=== PATIENT | male | born 1965 | race Caucasian/White ===

== ENCOUNTER → 2019-12-01 10:56 | Outpatient (BNVA) | payer MEDICARE, OTHER, SELFPAY | PROVIDERS: PCP Internal Medicine; Visit Provider Surgery | DX: T87.89 Other complications of amputation stump (principal); Z89.512 Acquired absence of left leg below knee | CPT/HCPCS: 99213 ==

== ENCOUNTER → 2019-12-15 10:39 | Outpatient (BNVA) | payer MEDICARE, OTHER, SELFPAY | PROVIDERS: PCP Internal Medicine; Referring Provider Internal Medicine; Visit Provider Surgery | DX: Z47.81 Encounter for orthopedic aftercare following surgical amputation (principal); Z89.512 Acquired absence of left leg below knee | CPT/HCPCS: 99213 ==

== ENCOUNTER → 2020-01-05 10:46 | Outpatient (BNVA) | payer MEDICARE, OTHER, SELFPAY | PROVIDERS: PCP Internal Medicine; Referring Provider Internal Medicine; Visit Provider Surgery | DX: Z89.512 Acquired absence of left leg below knee (principal); E11.69 Type 2 diabetes mellitus with other specified complication; M86.9 Osteomyelitis, unspecified; E78.00 Pure hypercholesterolemia, unspecified; I10 Essential (primary) hypertension; F17.200 Nicotine dependence, unspecified, uncomplicated | CPT/HCPCS: 99212 ==

== ENCOUNTER → 2020-01-19 10:01 | Outpatient (BNVA) | payer MEDICARE, OTHER, SELFPAY | PROVIDERS: PCP Internal Medicine; Visit Provider Surgery | DX: Z89.512 Acquired absence of left leg below knee (principal) | CPT/HCPCS: 99212 ==

== ENCOUNTER → 2020-02-27 08:58 | Outpatient (BNVA) | payer MEDICARE, OTHER, SELFPAY | PROVIDERS: PCP Internal Medicine; Visit Provider Surgery | DX: Z89.512 Acquired absence of left leg below knee (principal) | CPT/HCPCS: 99212 ==

== ENCOUNTER → 2020-03-19 09:45 | Outpatient (BNVA) | payer MEDICARE, OTHER, SELFPAY | PROVIDERS: PCP Internal Medicine; Visit Provider Surgery | DX: Z89.512 Acquired absence of left leg below knee (principal) | CPT/HCPCS: 99212 ==

== ENCOUNTER → 2020-04-17 09:20 | Outpatient (BNVA) | payer MEDICARE, OTHER, SELFPAY | PROVIDERS: PCP Internal Medicine; Visit Provider Surgery | DX: Z89.512 Acquired absence of left leg below knee (principal) | CPT/HCPCS: 99212 ==

== ENCOUNTER 2020-04-24 08:49 | Outpatient (REF) | payer MEDICARE, OTHER, SELFPAY ==
--- NOTE | 2020-04-24 09:00 | PFT_ITS ---
The patient had only spirometry before and after bronchodilators. Forced vital capacity and FEV1 are both slightly decreased. FEV1/FVC ratio is normal. [id number] is at the lower limit of normal. MVV is normal. Post bronchodilator therapy, there is no significant change. The patient was unable to perform maneuvers for the total lung capacity and diffusion capacity. CONCLUSION: The spirometry findings are consistent with possible mild restrictive disorder, but no significant obstructive airway disorder. Clinical correlation is recommended. Muna Lopez MD MSB/MODL / [id number]
== END 2020-04-24 08:50 | disposition home or self-care (01) ==
LOC: HO.RESP 08:49
PROVIDERS: PCP Internal Medicine; Visit Provider Internal Medicine
DX: R06.02 Shortness of breath (principal)
CPT/HCPCS: 94060

== ENCOUNTER → 2020-05-17 10:11 | Outpatient (BNVA) | payer MEDICARE, OTHER, SELFPAY | PROVIDERS: PCP Internal Medicine; Visit Provider Surgery | DX: T87.89 Other complications of amputation stump (principal); L84 Corns and callosities; Z89.512 Acquired absence of left leg below knee | CPT/HCPCS: 11055; 99212 ==

== ENCOUNTER → 2020-05-31 09:47 | Outpatient (BNVA) | payer MEDICARE, OTHER, SELFPAY | PROVIDERS: PCP Internal Medicine; Visit Provider Surgery | DX: Z89.512 Acquired absence of left leg below knee (principal); Z87.2 Personal history of diseases of the skin and subcutaneous tissue | CPT/HCPCS: 99212 ==

== ENCOUNTER → 2020-07-19 09:50 | Outpatient (BNVA) | payer MEDICARE, OTHER, SELFPAY | PROVIDERS: PCP Internal Medicine; Visit Provider Surgery | DX: Z47.81 Encounter for orthopedic aftercare following surgical amputation (principal); E11.9 Type 2 diabetes mellitus without complications; Z89.512 Acquired absence of left leg below knee | CPT/HCPCS: 99212 ==

== ENCOUNTER → 2020-08-09 08:53 | Outpatient (BNVA) | payer MEDICARE, OTHER, SELFPAY | PROVIDERS: PCP Internal Medicine; Visit Provider Surgery | DX: Z89.512 Acquired absence of left leg below knee (principal) | CPT/HCPCS: 99212 ==

== ENCOUNTER → 2020-08-23 11:17 | Outpatient (BNVA) | payer MEDICARE, OTHER, SELFPAY | PROVIDERS: PCP Internal Medicine; Referring Provider Internal Medicine; Visit Provider Surgery | DX: Z89.512 Acquired absence of left leg below knee (principal) | CPT/HCPCS: 99212 ==

== ENCOUNTER → 2020-09-13 09:35 | Outpatient (BNVA) | payer MEDICARE, OTHER, SELFPAY | PROVIDERS: PCP Internal Medicine; Visit Provider Surgery | DX: G62.9 Polyneuropathy, unspecified (principal); L84 Corns and callosities; Z89.512 Acquired absence of left leg below knee | CPT/HCPCS: 99212 ==

== ENCOUNTER → 2020-10-01 09:54 | Outpatient (BNVA) | payer MEDICARE, OTHER, SELFPAY | PROVIDERS: PCP Internal Medicine; Visit Provider Surgery | DX: S81.802D Unspecified open wound, left lower leg, subsequent encounter (principal); Z89.512 Acquired absence of left leg below knee; E11.9 Type 2 diabetes mellitus without complications; G62.9 Polyneuropathy, unspecified | CPT/HCPCS: 99212 ==

== ENCOUNTER → 2020-10-17 13:21 | Outpatient (BNVA) | payer MEDICARE, OTHER, SELFPAY | PROVIDERS: PCP Internal Medicine; Visit Provider Surgery | DX: E11.65 Type 2 diabetes mellitus with hyperglycemia (principal); E11.42 Type 2 diabetes mellitus with diabetic polyneuropathy; M86.8X7 Other osteomyelitis, ankle and foot; E78.00 Pure hypercholesterolemia, unspecified; I10 Essential (primary) hypertension; Z89.512 Acquired absence of left leg below knee | CPT/HCPCS: 99212 ==

== ENCOUNTER → 2020-11-19 10:19 | Outpatient (BNVA) | payer MEDICARE, OTHER, SELFPAY | PROVIDERS: PCP Internal Medicine; Referring Provider Internal Medicine; Visit Provider Surgery | DX: E11.9 Type 2 diabetes mellitus without complications (principal); G62.9 Polyneuropathy, unspecified; Z89.512 Acquired absence of left leg below knee | CPT/HCPCS: 99212 ==

== ENCOUNTER → 2020-12-19 10:31 | Outpatient (BNVA) | payer MEDICARE, OTHER, SELFPAY | PROVIDERS: PCP Internal Medicine; Referring Provider Internal Medicine; Visit Provider Surgery | DX: M25.561 Pain in right knee (principal); E11.9 Type 2 diabetes mellitus without complications; G62.9 Polyneuropathy, unspecified; Z89.512 Acquired absence of left leg below knee | CPT/HCPCS: 99212 ==

== ENCOUNTER → 2021-02-18 15:06 | Outpatient (BNVA) | payer MEDICARE, OTHER, SELFPAY | PROVIDERS: PCP Internal Medicine; Referring Provider Internal Medicine; Visit Provider Surgery | DX: M79.605 Pain in left leg (principal); Z89.512 Acquired absence of left leg below knee | CPT/HCPCS: 99212 ==

== ENCOUNTER → 2021-04-15 13:53 | Outpatient (BNVA) | payer MEDICARE, OTHER, SELFPAY | PROVIDERS: PCP Internal Medicine; Referring Provider Internal Medicine; Visit Provider Surgery | DX: M79.605 Pain in left leg (principal); E11.9 Type 2 diabetes mellitus without complications; G62.9 Polyneuropathy, unspecified; Z89.512 Acquired absence of left leg below knee | CPT/HCPCS: 99212 ==

== ENCOUNTER → 2021-05-15 10:49 | Outpatient (BNVA) | payer MEDICARE, OTHER, SELFPAY | PROVIDERS: PCP Internal Medicine; Visit Provider Nurse Practitioner Family | DX: M79.605 Pain in left leg (principal); T87.89 Other complications of amputation stump; G62.9 Polyneuropathy, unspecified; Z89.512 Acquired absence of left leg below knee | CPT/HCPCS: 99212 ==

== ENCOUNTER 2021-07-05 20:58 | Emergency (ER) | payer MEDICARE, OTHER, SELFPAY ==
[2021-07-05 21:01] VITALS: BP 133/63; BP 156/88; PULSE 78; PULSE 83; RESP 18; TEMP 37; O2SAT 100; O2SAT 97
[2021-07-05 21:14] LABS: Glucose, Whole Blood 152 mg/dL (60-115)
--- NOTE | 2021-07-05 21:26 | ED_ITS ---
HPI - Overdose General Chief Complaint: Overdose Stated Complaint: ACCIDENTALLY TOOK EXTRA DIABETES MEDS Time Seen by Provider: 07/05/21 21:13 Source: patient Mode of arrival: EMS Limitations: no limitations History of Present Illness HPI Narrative: 56-year-old male with a history of diabetes who presents emergency department for evaluation of accidental overdose of his Humalog regular insulin. The patient has hemologic insulin on a sliding scale that he takes 3 times a day based on his glucose prior to meals. He also takes Lantus at night. He states that normally he takes 36 units of Lantus at night but he accidentally gave himself 36 units of Humalog regular insulin. He realized his mistake in any also gave himself his usual dose of Lantus 36 units subcutaneously. The patient states that his glucose was 220 prior to coming to the emergency department. He was concerned about his accidental overdose so he called an ambulance and was brought to the emergency department. He states that he was in usual state of health prior to this accidental insulin administration and at the time of evaluation he has no complaints. MD complaint: accidental overdose Onset (ago): hour(s) (1) Time: 20:30 Intent: other (Accidental) Treatments Prior to Arrival: none Related Data Home Medications Medication Instructions Recorded Confirmed amlodipine 5 mg tablet 5 mg PO DAILY 11/30/19 04/15/21 atorvastatin 20 mg tablet 20 mg PO DAILY 11/30/19 04/15/21 blood sugar diagnostic (FreeStyle #10 ea 11/30/19 04/15/21 Lite Strips) insulin lispro 100 unit/mL 36 unit SUBCUT DAILY ml 11/30/19 04/15/21 subcutaneous pen (Humalog KwikPen (U-100) Insulin) lancets 28 gauge (FreeStyle #100 ea 11/30/19 04/15/21 Lancets) pen needle, diabetic 32 gauge x #50 ea 11/30/19 04/15/21 (BD Ultra-Fine Sarah Pen Needle) amlodipine 10 mg tablet 10 mg PO DAILY 04/15/21 04/15/21 carvedilol 6.25 mg tablet 6.25 mg PO BID 04/15/21 04/15/21 lancets 33 gauge (TRUEplus Lancets) #100 ea 04/15/21 04/15/21 lisinopril 40 mg tablet 40 mg PO DAILY 04/15/21 04/15/21 oxycodone-acetaminophen 5 mg-325 1 tab PO Q8H PRN 04/15/21 mg tablet Previous Rx's Medication Instructions Recorded hydrocortisone 2.5 % topical cream 1 appl TOPICAL BEDTIME PRN #20 g 08/09/20 loratadine 10 mg tablet (Claritin) 10 mg PO DAILY #20 tab 09/13/20 silver-hydrocolloid dressing 1.2 1 ea TOPICAL .QOD #10 ea 10/01/20 %-3.5 X 4 (Aquacel-AG) oxycodone 10 mg tablet 10 mg PO Q6H PRN #30 tab 04/10/21 pregabalin 50 mg capsule 50 mg PO BID 30 Days #60 cap 05/15/21 Allergies Allergy/AdvReac Type Severity Reaction Status Date / Time acetaminophen Allergy Mild Rash Verified 05/15/21 11:01 Review of Systems Review of Systems: Yes all other systems are reviewed and are negative [facility] Past Medical History [facility] Narrative: Social history: Patient smokes 1 pack of cigarettes per day times 40 years. He drinks alcohol occasionally, he did not drink alcohol this evening. There denie s drug use. 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 Family History Family History Father History of hypertension Mother History of diabetes mellitus Social History Social History Alcohol intake: current Alcohol intake frequency: 0-2 drinks per day Alcohol type: beer Advance Directives: No Advance Directives Information Provided: No Physical Exam Vital Signs: Vital Signs: Last Vital Signs Temp 97.9 F 07/05/21 23:17 Pulse 70 07/06/21 01:16 Resp 14 07/06/21 01:16 BP 127/74 07/06/21 01:16 Pulse Ox 96 07/06/21 01:16 BMI result Body Mass Index 20.0 Const: General: cooperative and no acute distress Orientation/consciousness: oriented to person and oriented to place Limitations: no limitations HEENT: Head: Yes normal to inspection, Yes normocephalic and Yes atraumatic Ears: external ears normal General nose exam: Normal external nose present Face and sinus: Yes normal facial exam Mouth: Normal oral and palatal mucosa present Throat: Yes posterior oropharynx normal Eyes: General: appearance normal, both eyes and all related structures P upils: Equal, round and reactive pupils present Neck: Neck: Yes normal visual inspection, Yes no lymphadenopathy, Yes trachea midline and Yes supple Chest: Chest palpation & inspection: normal inspection of the chest and normal palpation of entire chest wall Resp: Effort & Inspection: normal respiratory effort and able to speak in complete sentences Auscultation: clear to auscultation bilaterally Cardio: Rate: regular rate Rhythm: regular rhythm Heart sounds: S1 normal heart sound present, S2 normal heart sound present and no murmurs GI: Inspection: Yes normal to inspection Palpation (GI): Soft to palpation, nontender and no guarding Auscultation: normal bowel sounds : General: Yes no CVA tenderness Back/Spine/Pelvis: Back: no CVA tenderness Skin: General skin exam: no rashes or lesions noted Neuro: General: oriented to person and oriented to place Cranial nerves: Yes CN's II-XII intact bilaterally and Yes Equal, round and reactive pupils present Cognition (Neuro): normal cognition Motor exam (neuro): 5/5 motor strength present throughout Extrem: Other: Left [id number] amputation, the patient is wearing a prosthesis Psych: Appearance: grossly normal Speech and movement: Normal speech and movement present Affect: normal affect Attitude: cooperative Thought process: Normal thought process present Thought content: Normal thought content present Course Course Course Narrative: 56-year-old male who presents emergency department for evaluation accidental overdose Humalog insulin. The patient was supposed to give himself Lantus 36 units at night but he accidentally gave himself 36 units of Humalog regular insulin at 20:30 hours. The patient also give himself his usual dose of Lantus 36 units prior to coming to the emergency department. The patient has not been ill in any way prior to this accidental administration insulin. At the time of evaluation, the patient's point of care glucose was 152. His vital signs were normal. His exam is normal. The half-life of Humalog is 1 hour therefore the patient will be kept 4 hours, until 00:30 hours for observation and 1 hour point of care glucose checks. The patient was given 2 chicken salad sandwich is an to cans of tong lety to help prevent hypoglycemia. 2210: Patient's repeat point of care glucose was above. The patient is a alert and does not appear distress. Given this drop in his glucose, patient was started on D5 normal saline at 125 an hour and will continue for 3 hours. 0425: The patient's D5 NS drip was stopped for approximately 1 hour and repeat point of care glucose at 03:30 hours was 115. At this point I believe that the patient has metabolized the Humalog that he took earlier and that he is stable to be discharged home. MDM - Overdose Lab Data Labs: Lab Results 07/05/21 07/05/21 07/05/21 Range/Units 21:09 22:05 23:00 POC Glucose 152 H 78 99 (60-115) mg/dL 07/06/21 07/06/21 07/06/21 Range/Units 00:35 00:49 03:25 POC Glucose 73 61 115 (60-115) mg/dL Discharge Plan Discharge Clinical Impression: Accidental overdose of insulin Patient Disposition: Home, Self-Care Additional Instructions: At this time, I think that is safe to send you home. When you get home you should eat some more food before you go to bed. You can resume taking your insulin today as you normally would. Follow-up with your doctor in 2 days. Please return to the emergency department if your symptoms get worse or if you develop any symptoms that are concerning to you. Prescriptions: No Action loratadine [Claritin] 10 mg tablet 10 mg PO DAILY Qty: 20 0RF oxycodone 10 mg tablet 10 mg PO Q6H PRN (Reason: pain (scale score 7-10)) Qty: 30 0RF insulin lispro [Humalog KwikPen Insulin] 100 unit/mL insulin pen 36 unit subcut DAILY 0RF (DME) FreeStyle Lite Strips Strip See Rx Instructions .ROUTE .MEDSUPPLY Qty: 10 0RF Rx Instructions: As directed (DME) lancets [FreeStyle Lancets] 28 gauge misc See Rx Instructions .ROUTE .MEDSUPPLY Qty: 100 0RF Rx Instructions: As directed (DME) pen needle, diabetic [BD Ultra-Fine Sarah Pen Needle] 32 gauge x 5/32 needle See Rx Instructions .ROUTE .MEDSUPPLY Qty: 50 0RF Rx Instructions: As directed amlodipine 5 mg tablet 5 mg PO DAILY 0RF atorvastatin 20 mg tablet 20 mg PO DAILY 0RF hydrocortisone 2.5 % cream 1 appl topical BEDTIME PRN (Reason: skin irritation) Qty: 20 0RF Aquacel-AG 1.2-3.5 X 4 %- bandage 1 ea topical .QOD Qty: 10 0RF Rx Instructions: Cut small square to cover open wound every other day oxycodone-acetaminophen 5-325 mg tablet 1 tab PO Q8H PRN (Reason: pain) 0RF lisinopril 40 mg tablet 40 mg PO DAILY 0RF (DME) lancets [TRUEplus Lancets] 33 gauge misc See Rx Instructions ea Not Applicable TID Qty: 100 0RF Rx Instructions: As directed amlodipine 10 mg tablet 10 mg PO DAILY 0RF carvedilol 6.25 mg tablet 6.25 mg PO BID 0RF pregabalin 50 mg capsule 50 mg PO BID 30 Days Qty: 60 0RF
[2021-07-05 22:09] LABS: Glucose, Whole Blood 78 mg/dL (60-115)
[2021-07-05] MEDS: Dextrose 5 % and 0.9 % NaCl 1,000 ML 125 ML IVCONT (22:16)
[2021-07-05 23:04] LABS: Glucose, Whole Blood 99 mg/dL (60-115)
[2021-07-05 23:17] VITALS: BP 117/61; PULSE 77; RESP 16; TEMP 36.6; O2SAT 96
[2021-07-06 00:38] LABS: Glucose, Whole Blood 73 mg/dL (60-115)
[2021-07-06 00:53] LABS: Glucose, Whole Blood 61 mg/dL (60-115)
[2021-07-06 01:16] VITALS: BP 127/74; PULSE 70; RESP 14; O2SAT 96
[2021-07-06 03:29] LABS: Glucose, Whole Blood 115 mg/dL (60-115)
[2021-07-06 04:33] VITALS: BP 143/80; PULSE 84; RESP 18; TEMP 37.1; O2SAT 100
== END 2021-07-06 04:36 | disposition home or self-care (01) ==
PROVIDERS: Emergency Provider Emergency Medicine Emergency Medical Services; PCP Internal Medicine
DX: T38.3X1A Poisoning by insulin and oral hypoglycemic [antidiabetic] drugs, accidental (unintentional), initial encounter (principal); E11.42 Type 2 diabetes mellitus with diabetic polyneuropathy; I10 Essential (primary) hypertension; Z79.4 Long term (current) use of insulin; Y92.009 Unspecified place in unspecified non-institutional (private) residence as the place of occurrence of the external cause
CPT/HCPCS: 82947; 96360; 96361; 99283; 99285

== ENCOUNTER → 2022-07-28 15:33 | Outpatient (BNVA) | payer MEDICARE, MEDICAID, SELFPAY | PROVIDERS: PCP Internal Medicine; Visit Provider Surgery | DX: T87.89 Other complications of amputation stump (principal); M79.605 Pain in left leg; Z89.512 Acquired absence of left leg below knee | CPT/HCPCS: 99212 ==

== ENCOUNTER → 2022-08-28 10:16 | Outpatient (BNVA) | payer MEDICARE, MEDICAID, SELFPAY | PROVIDERS: PCP Internal Medicine; Visit Provider Surgery | DX: T87.89 Other complications of amputation stump (principal); M79.662 Pain in left lower leg; Z89.512 Acquired absence of left leg below knee | CPT/HCPCS: 99212 ==

== ENCOUNTER 2022-11-08 12:34 | Emergency (ER) | payer MEDICARE, MEDICAID, SELFPAY ==
[2022-11-08 12:39] VITALS: BP 152/74; PULSE 75; O2SAT 96
--- NOTE | 2022-11-08 12:40 | ED.GENADULT ---
HPI - General Adult General Chief complaint: General Medical Stated complaint: TIRED/THIRSTY HIGH BS 328 PER EMS Time Seen by Provider: 11/08/22 17:27 Related Data Home Medications Medication Instructions Recorded Confirmed amlodipine 5 mg tablet 5 mg PO DAILY 11/30/19 08/28/22 atorvastatin 20 mg tablet 20 mg PO DAILY 11/30/19 08/28/22 blood sugar diagnostic (FreeStyle #10 ea 11/30/19 08/28/22 Lite Strips) insulin lispro 100 unit/mL 36 unit subcut DAILY 11/30/19 08/28/22 subcutaneous pen (Humalog KwikPen (U-100) Insulin) lancets 28 gauge (FreeStyle #100 ea 11/30/19 08/28/22 Lancets) pen needle, diabetic 32 gauge x #50 ea 11/30/19 08/28/22 (BD Ultra-Fine Sarah Pen Needle) amlodipine 10 mg tablet 10 mg PO DAILY 04/15/21 08/28/22 carvedilol 6.25 mg tablet 6.25 mg PO BID 04/15/21 08/28/22 lancets 33 gauge (TRUEplus Lancets) #100 ea 04/15/21 08/28/22 lisinopril 40 mg tablet 40 mg PO DAILY 04/15/21 08/28/22 Previous Rx's Medication Instructions Recorded hydrocortisone 2.5 % topical cream 1 appl topical BEDTIME PRN skin 08/09/20 irritation #20 grams loratadine 10 mg tablet (Claritin) 10 mg PO DAILY #20 tabs 09/13/20 pregabalin 50 mg capsule 50 mg PO BID pain 30 days #60 caps 05/15/21 oxycodone 10 mg tablet 10 mg PO Q6H PRN pain (scale score 11/09/22 7-10) #30 tabs Allergies Allergy/AdvReac Type Severity Reaction Status Date / Time acetaminophen Allergy Mild Rash Verified 11/08/22 12:43 PMFSH Past Medical History Medical History Diabetes mellitus Peripheral neuropathy Hypertension Osteomyelitis of left foot Hypercholesterolemia Surgical History Status post cryoablation History of amputation of both great toes Family History Family History Father History of hypertension Mother History of diabetes mellitus Social History Social History Alcohol intake: current Alcohol intake frequency: 0-2 drinks per day Alcohol type: beer Smoked in Last 30 Days: Yes Use of substances other than those prescribed or required for medical reasons: No Advance Directives: No Advance Directives Information Provided: Yes Physical Exam ED Vital Signs: BMI result Body Mass Index 28.7 Course Course Course Narrative: This is an RME: Additional HPI, ROS, PE not included below will be deferred to primary provider. Patient is a 57-year-old male presents emergency department for evaluation of feeling tired and thirsty upon awakening this morning. Reports history of similar symptoms in the past and states ?I know I needed to come to the ER to get a shot . He reports blood glucose levels at home ranging from high 200s - low 300s. Reports compliance with his insulin. Took Humalog at 0600 before breakfast This morning had eggs, sausage, biscuits, gravy. Glucose this afternoon was above 300, did not take insulin by recommendation of EMS. He states that his mother 2 nights ago, he forgot to take his Lantus then, and thinks this may be the cause, as his blood sugar is typically better managed. Denies any recent illness. Plan: serum labs, urinalysis Medications Administered Discontinued Medications Generic Name Dose Route Start Last Admin Trade Name Valdo PRN Reason Stop Dose Admin Sodium Chloride 1,000 mls @ 999 mls/hr 11/08/22 18:30 11/08/22 19:13 Ns IV 11/08/22 19:30 Infused .Q1H1M HERO Infusion Sodium Chloride 1,000 mls @ 999 mls/hr 11/08/22 18:30 11/08/22 20:30 Ns IV 11/08/22 19:30 Infused .Q1H1M HERO Infusion Insulin Human Regular 5 unit 11/08/22 18:29 11/08/22 18:40 Insulin Regular, Human 100 Unit/Ml 3 Ml Vial IVPUSH 11/08/22 18:30 5 unit ONCE ONE Administration Medical Decision Making Lab Data 11/08/22 14:40 11/08/22 14:40 Labs: Lab Results 09/12/2111/08/22 11/08/22 Range/Units 14:40 14:52 17:36 WBC 6.9 (4.8-10.8) X10*3/uL RBC 5.08 (4.60-5.80) X10*6/uL Hgb 16.4 (14.0-18.0) g/dl Hct 46.5 (42.0-52.0) % MCV 91.5 (80.0-98.0) fL MCH 32.3 (27.0-33.0) pg MCHC 35.3 (31.0-36.0) g/dl RDW 12.3 (11.0-16.0) % Plt Count 246 (160-400) X10*3/uL MPV 10.2 (9.4-12.4) fL Immature Gran % (Auto) 0.1 (0.0-0.4) % Neut % (Auto) 71.5 (45-73) % Lymph % (Auto) 19.0 L (20-40) % [place] % (Auto) 5.8 (2-11) % Eos % (Auto) 2.6 (0-4) % Baso % (Auto) 1.0 (0-2) % Lymph # (Auto) 1.3 (1.2-4.9) X10*3/uL [place] # (Auto) 0.4 (0.1-1.2) X10*3/uL Eos # (Auto) 0.2 (0.0-0.4) X10*3/uL Baso # (Auto) 0.1 (0.0-0.2) X10*3/uL Abs Immat Gran (auto) 0.01 (0.00-0.03) X10*3/uL Absolute Neuts (auto) 4.9 (2.0-8.3) x10*3/uL Absolute Nucleated RBC 0.000 (0.0-0.012) X10*3/uL Nucleated RBC % (auto) 0.0 (0.0-0.2) /100WBC VBG pH Cancelled 7.43 VBG pCO2 Cancelled 37 VBG pO2 Cancelled 46 VBG HCO3 Cancelled 25 VBG O2 Saturation Cancelled 75.0 VBG Base Excess Cancelled 1.3 Sodium 136 (135-145) mmol/L Potassium 4.7 (3.3-5.1) mmol/L Chloride 104 (96-108) mmol/L Carbon Dioxide 24 (22-29) mmol/L Anion Gap 13 (12-20) BUN 23 H (9-16) mg/dL Creatinine 1.08 (0.5-1.4) mg/dL Estim Creat Clear Calc 96.2 Estimated GFR > 60 POC Glucose 321 H (60-115) mg/dL Random Glucose 332 H (60-115) mg/dL Lactic Acid 1.1 (0.5-2.0) mmol/L Calcium 10.0 (8.4-10.2) mg/dL Magnesium 2.1 (1.6-2.6) mg/dL Total Bilirubin 0.7 (0.0-1.0) mg/dL AST 19 (5-37) U/L ALT 23 (0-40) U/L Alkaline Phosphatase 82 (39-117) U/L Total Protein 7.4 (6.5-8.0) g/dL Albumin 4.3 (3.5-5.0) g/dL Lipase 16 (8-78) U/L Beta-Hydroxybutyrate 0.54 H (0.02-0.27) mmol/L Urine Color Urine Appearance Urine pH (5.0-9.0) Ur Specific [place] (1.005-1.025) Urine Protein (Neg-Trace) mg/dL Urine Glucose (UA) (Negative) mg/dL Urine Ketones (Negative) mg/dL Urine Blood (Negative) Urine Nitrite (Negative) Ur Leukocyte Esterase (Negative) Urine RBC (0-2) /HPF Urine WBC (0-5) /HPF Ur Squamous Epith Cells (0-2) /HPF Urine Bacteria (None Seen) Hyaline Casts (0-2) /LPF 11/08/22 11/08/22 Range/Units 18:10 20:00 WBC (4.8-10.8) X10*3/uL RBC (4.60-5.80) X10*6/uL Hgb (14.0-18.0) g/dl Hct (42.0-52.0) % MCV (80.0-98.0) fL MCH (27.0-33.0) pg MCHC (31.0-36.0) g/dl RDW (11.0-16.0) % Plt Count (160-400) X10*3/uL MPV (9.4-12.4) fL Immature Gran % (Auto) (0.0-0.4) % Neut % (Auto) (45-73) % Lymph % (Auto) (20-40) % [place] % (Auto) (2-11) % Eos % (Auto) (0-4) % Baso % (Auto) (0-2) % Lymph # (Auto) (1.2-4.9) X10*3/uL [place] # (Auto) (0.1-1.2) X10*3/uL Eos # (Auto) (0.0-0.4) X10*3/uL Baso # (Auto) (0.0-0.2) X10*3/uL Abs Immat Gran (auto) (0.00-0.03) X10*3/uL Absolute Neuts (auto) (2.0-8.3) x10*3/uL Absolute Nucleated RBC (0.0-0.012) X10*3/uL Nucleated RBC % (auto) (0.0-0.2) /100WBC VBG pH VBG pCO2 VBG pO2 VBG HCO3 VBG O2 Saturation VBG Base Excess Sodium (135-145) mmol/L Potassium (3.3-5.1) mmol/L Chloride (96-108) mmol/L Carbon Dioxide (22-29) mmol/L Anion Gap (12-20) BUN (9-16) mg/dL Creatinine (0.5-1.4) mg/dL Estim Creat Clear Calc Estimated GFR POC Glucose 231 H (60-115) mg/dL Random Glucose (60-115) mg/dL Lactic Acid (0.5-2.0) mmol/L Calcium (8.4-10.2) mg/dL Magnesium (1.6-2.6) mg/dL Total Bilirubin (0.0-1.0) mg/dL AST (5-37) U/L ALT (0-40) U/L Alkaline Phosphatase (39-117) U/L Total Protein (6.5-8.0) g/dL Albumin (3.5-5.0) g/dL Lipase (8-78) U/L Beta-Hydroxybutyrate (0.02-0.27) mmol/L Urine Color Yellow Urine Appearance Clear Urine pH 5.5 (5.0-9.0) Ur Specific [place] >= 1.030 H (1.005-1.025) Urine Protein Trace (Neg-Trace) mg/dL Urine Glucose (UA) >=1000 H (Negative) mg/dL Urine Ketones 15 (Negative) mg/dL Urine Blood Negative (Negative) Urine Nitrite Negative (Negative) Ur Leukocyte Esterase Negative (Negative) Urine RBC 0-2 (0-2) /HPF Urine WBC 0-5 (0-5) /HPF Ur Squamous Epith Cells 0-2 (0-2) /HPF Urine Bacteria None Seen (None Seen) Hyaline Casts 0-2 (0-2) /LPF Discharge Plan Discharge Clinical Impression: Diabetes mellitus Patient Disposition: Home, Self-Care Instructions: Diabetes and Nutrition (ED) Prescriptions: No Action loratadine [Claritin] 10 mg tablet 10 mg PO DAILY Qty: 20 0RF oxycodone 10 mg tablet 10 mg PO Q6H PRN (Reason: pain (scale score 7-10)) Qty: 30 0RF insulin lispro [Humalog KwikPen Insulin] 100 unit/mL insulin pen 36 unit subcut DAILY (DME) FreeStyle Lite Strips Strip See Rx Instructions .ROUTE .MEDSUPPLY Qty: 10 Rx Instructions: As directed (DME) lancets [FreeStyle Lancets] 28 gauge misc See Rx Instructions .ROUTE .MEDSUPPLY Qty: 100 Rx Instructions: As directed (DME) pen needle, diabetic [BD Ultra-Fine Sarah Pen Needle] 32 gauge x 5/32 needle See Rx Instructions .ROUTE .MEDSUPPLY Qty: 50 Rx Instructions: As directed amlodipine 5 mg tablet 5 mg PO DAILY atorvastatin 20 mg tablet 20 mg PO DAILY hydrocortisone 2.5 % cream 1 appl topical BEDTIME PRN (Reason: skin irritation) Qty: 20 0RF lisinopril 40 mg tablet 40 mg PO DAILY (DME) lancets [TRUEplus Lancets] 33 gauge misc See Rx Instructions Not Applicable TID Qty: 100 Rx Instructions: As directed amlodipine 10 mg tablet 10 mg PO DAILY carvedilol 6.25 mg tablet 6.25 mg PO BID pregabalin 50 mg capsule 50 mg PO BID 30 Days Qty: 60 0RF Referrals: Physician,Bryce J [Primary Care Provider] - 11/10/22 Interventions: ED Discharge Assessment Last Done: 11/08/22 21:43 Discharge Date/Time: 11/08/22 21:44
[2022-11-08 12:44] VITALS: BP 137/70; PULSE 71; RESP 19; TEMP 36.6; O2SAT 98; BMI 28.7
[2022-11-08 14:53] LABS: MANUAL DIFF FLAG NO
[2022-11-08 14:57] LABS: Venous Blood Gas Refer to POC result
[2022-11-08 14:59] LABS: VBG Base Excess 1.3 mmol/L; VBG HCO3 25 mmol/L (22-26); VBG pCO2 37 mmHg; VBG pH 7.43 (7.32-7.43); VBG pO2 46 mmHg
[2022-11-08 15:05] LABS: Basophils Absolute Auto 0.1 X10*3/uL (0.0-0.2); Eosinophils Absolute Auto 0.2 X10*3/uL (0.0-0.4); Eosinophils Percent Auto 2.6 % (0-4); Hematocrit 46.5 % (42.0-52.0); Hemoglobin 16.4 g/dl (14.0-18.0); Imm Gran Abs Auto 0.01 X10*3/uL (0.00-0.03); Imm Gran Pct Auto 0.1 % (0.0-0.4); Lymphocytes Absolute Auto 1.3 X10*3/uL (1.2-4.9); Mean Corpuscular HGB Conc 35.3 g/dl (31.0-36.0); Mean Corpuscular Hemoglobin 32.3 pg (27.0-33.0); Mean Corpuscular Volume 91.5 fL (80.0-98.0); Mean Platelet Volume 10.2 fL (9.4-12.4); Monocytes Absolute Auto 0.4 X10*3/uL (0.1-1.2); Monocytes Percent Auto 5.8 % (2-11); Neutrophils Absolute Auto 4.9 x10*3/uL (2.0-8.3); Neutrophils Percent Auto 71.5 % (45-73); Platelet Count 246 X10*3/uL (160-400); Red Blood Count 5.08 X10*6/uL (4.60-5.80); Red Cell Distribution Width 12.3 % (11.0-16.0); White Blood Count 6.9 X10*3/uL (4.8-10.8)
[2022-11-08 15:06] LABS: Lactic Acid 1.1 mmol/L (0.5-2.0)
[2022-11-08 15:11] LABS: Alanine Aminotransferase 23 U/L (0-40); Albumin Level 4.3 g/dL (3.5-5.0); Alkaline Phosphatase 82 U/L (39-117); Anion Gap 13 (12-20); Aspartate Amino Transferase 19 U/L (5-37); Beta-Hydroxybutyrate 0.54 mmol/L (0.02-0.27); Bilirubin Total 0.7 mg/dL (0.0-1.0); Blood Urea Nitrogen 23 mg/dL (9-16); Carbon Dioxide 24 mmol/L (22-29); Chloride 104 mmol/L (96-108); Creatinine Clr Calc Pharmacy 96.2; Estimated Glomerular Filt Rate > 60; Glucose Random 332 mg/dL (60-115); Lipase 16 U/L (8-78); Magnesium 2.1 mg/dL (1.6-2.6); Potassium 4.7 mmol/L (3.3-5.1); Sodium 136 mmol/L (135-145); Total Protein 7.4 g/dL (6.5-8.0)
[2022-11-08 17:30] VITALS: BP 142/76; PULSE 66; RESP 16; O2SAT 99
[2022-11-08 17:41] LABS: Glucose, Whole Blood 321 mg/dL (60-115)
--- NOTE | 2022-11-08 17:53 | PC.NURSE ---
pt a&ox3. respirations even and unlabored. pt reports coming to the ED d/t high blood sugar readings at . pt reports his sugars have been in the high 200s. pt reports the passing of his mother causing the pt to drink more . 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 pt denies nausea, vomiting and chest pain.
[2022-11-08 18:17] LABS: Appearance Urine Clear; Color Urine Yellow; Glucose Urine UA >=1000 mg/dL (Negative); Leukocyte Esterase Urine Negative (Negative); Nitrite Urine Negative (Negative); PH 5.5 (5.0-9.0); Specific Gravity - Urine >= 1.030 (1.005-1.025); UMIC TRIGGER UACC YES; Urine Blood Negative (Negative); Urine Ketones 15 mg/dL (Negative); Urine Protein Trace mg/dL (Neg-Trace)
--- NOTE | 2022-11-08 18:32 | ED.GENADULT ---
HPI - General Adult General Chief complaint: General Medical Stated complaint: TIRED/THIRSTY HIGH BS 328 PER EMS Time Seen by Provider: 11/08/22 17:27 History of Present Illness HPI narrative: Patient is a 57-year-old male with a history of diabetes, peripheral neuropathy, hypertension, hypercholesterolemia. Presented today with having increased thirst elevated glucose. Patient admits to drinking alcohol and also missing his insulin dose on Wednesday. Since then been compliant with medications. Complaining of sugar being in the 300 range. No chest pain or shortness of breath no dizziness no nausea no vomiting patient is from home. Came in for further evaluation Related Data Home Medications Medication Instructions Recorded Confirmed amlodipine 5 mg tablet 5 mg PO DAILY 11/30/19 08/28/22 atorvastatin 20 mg tablet 20 mg PO DAILY 11/30/19 08/28/22 blood sugar diagnostic (FreeStyle #10 ea 11/30/19 08/28/22 Lite Strips) insulin lispro 100 unit/mL 36 unit subcut DAILY 11/30/19 08/28/22 subcutaneous pen (Humalog KwikPen (U-100) Insulin) lancets 28 gauge (FreeStyle #100 ea 11/30/19 08/28/22 Lancets) pen needle, diabetic 32 gauge x #50 ea 11/30/19 08/28/22 5/32 (BD Ultra-Fine Sarah Pen Needle) amlodipine 10 mg tablet 10 mg PO DAILY 04/15/21 08/28/22 carvedilol 6.25 mg tablet 6.25 mg PO BID 04/15/21 08/28/22 lancets 33 gauge (TRUEplus Lancets) #100 ea 04/15/21 08/28/22 lisinopril 40 mg tablet 40 mg PO DAILY 04/15/21 08/28/22 Previous Rx's Medication Instructions Recorded hydrocortisone 2.5 % topical cream 1 appl topical BEDTIME PRN skin 08/09/20 irritation #20 grams loratadine 10 mg tablet (Claritin) 10 mg PO DAILY #20 tabs 09/13/20 pregabalin 50 mg capsule 50 mg PO BID pain 30 days #60 caps 05/15/21 oxycodone 10 mg tablet 10 mg PO Q6H PRN pain (scale score 10/20/22 7-10) #30 tabs Allergies Allergy/AdvReac Type Severity Reaction Status Date / Time acetaminophen Allergy Mild Rash Verified 11/08/22 12:43 Review of Systems Review of Systems: Positive generalized malaise Yes all other systems are reviewed and are negative [facility] Past Medical History Attestation statement: The following information was validated with the patient. Medical History Diabetes mellitus Peripheral neuropathy Hypertension Osteomyelitis of left foot Hypercholesterolemia Surgical History Status post cryoablation History of amputation of both great toes Family History Family History Father History of hypertension Mother History of diabetes mellitus Social History Social History Alcohol intake: current Alcohol intake frequency: 0-2 drinks per day Alcohol type: beer Smoked in Last 30 Days: Yes Use of substances other than those prescribed or required for medical reasons: No Advance Directives: No Advance Directives Information Provided: Yes Physical Exam ED Vital Signs: Vital Signs - 24 hr 11/08/22 12:44 11/08/22 17:30 Temperature 98 F Pulse Rate 71 66 Respiratory Rate 19 16 Blood Pressure 137/70 142/76 H Pulse Oximetry 98 99 Oxygen Delivery Method Room Air Room Air BMI result Body Mass Index 28.7 Const Other: Appearance: Alert. Oriented X3. No acute distress. Eyes: Pupils equal, round and reactive to light. ENT: Pharynx normal. Neck: Normal inspection. Neck supple. No lymph nodes noted. No crepitus CVS: Normal heart rate and rhythm. Pulses normal. Normal S1 and S2 Respiratory: No respiratory distress. Breath sounds normal. No Wheezing. No rales Abdomen: Soft and nontender. No rigidity. No distention. good BS x4 Skin: Skin warm and dry. Normal skin color. Normal skin turgor. Extremities: No lower extremity edema. Neurovascular intact to all extremities. No Lacerations. No Rash Neuro: Oriented X 3. No motor deficit. No sensory deficit. Moving all extermities. No slurred speech Medications Administered Discontinued Medications Generic Name Dose Route Start Last Admin Trade Name Freq PRN Reason Stop Dose Admin Sodium Chloride 1,000 mls @ 999 mls/hr 11/08/22 18:30 11/08/22 19:13 Ns IV 11/08/22 19:30 Infused .Q1H1M HERO Infusion Sodium Chloride 1,000 mls @ 999 mls/hr 11/08/22 18:30 11/08/22 20:30 Ns IV 11/08/22 19:30 Infused .Q1H1M HERO Infusion Insulin Human Regular 5 unit 11/08/22 18:29 11/08/22 18:40 Insulin Regular, Human 100 Unit/Ml 3 Ml Vial IVPUSH 11/08/22 18:30 5 unit ONCE ONE Administration Medical Decision Making Medical Decision Making [facility] Narrative: 57-year-old male presents today with having elevated glucose. By his electrolytes his anion gap is normal. Bicarb normal. No evidence for DKA. Given IV fluid and insulin. Sugar is now in the 200 range. Will discharge patient home. Asked patient to follow his diabetic diet and also to be compliant with his insulin. Currently in stable condition will discharge home. Patient's VBG showed no acidosis. Differential Diagnosis Differential Diagnoses: The differential diagnosis associated with the presentation includes Hyperglycemia, DKA Lab Data [facility] Lab Attestation statement: I reviewed the patient's lab results. 11/08/22 14:40 11/08/22 14:40 Labs: Lab Results 11/08/22 11/08/22 11/08/22 Range/Units 14:40 14:52 17:36 WBC 6.9 (4.8-10.8) X10*3/uL RBC 5.08 (4.60-5.80) X10*6/uL Hgb 16.4 (14.0-18.0) g/dl Hct 46.5 (42.0-52.0) % MCV 91.5 (80.0-98.0) fL MCH 32.3 (27.0-33.0) pg MCHC 35.3 (31.0-36.0) g/dl RDW 12.3 (11.0-16.0) % Plt Count 246 (160-400) X10*3/uL MPV 10.2 (9.4-12.4) fL Immature Gran % (Auto) 0.1 (0.0-0.4) % Neut % (Auto) 71.5 (45-73) % Lymph % (Auto) 19.0 L (20-40) % [place] % (Auto) 5.8 (2-11) % Eos % (Auto) 2.6 (0-4) % Baso % (Auto) 1.0 (0-2) % Lymph # (Auto) 1.3 (1.2-4.9) X10*3/uL [place] # (Auto) 0.4 (0.1-1.2) X10*3/uL Eos # (Auto) 0.2 (0.0-0.4) X10*3/uL Baso # (Auto) 0.1 (0.0-0.2) X10*3/uL Abs Immat Gran (auto) 0.01 (0.00-0.03) X10*3/uL Absolute Neuts (auto) 4.9 (2.0-8.3) x10*3/uL Absolute Nucleated RBC 0.000 (0.0-0.012) X10*3/uL Nucleated RBC % (auto) 0.0 (0.0-0.2) /100WBC VBG pH Cancelled 7.43 VBG pCO2 Cancelled 37 VBG pO2 Cancelled 46 VBG HCO3 Cancelled 25 VBG O2 Saturation Cancelled 75.0 VBG Base Excess Cancelled 1.3 Sodium 136 (135-145) mmol/L Potassium 4.7 (3.3-5.1) mmol/L Chloride 104 (96-108) mmol/L Carbon Dioxide 24 (22-29) mmol/L Anion Gap 13 (12-20) BUN 23 H (9-16) mg/dL Creatinine 1.08 (0.5-1.4) mg/dL Estim Creat Clear Calc 96.2 Estimated GFR > 60 POC Glucose 321 H (60-115) mg/dL Random Glucose 332 H (60-115) mg/dL Lactic Acid 1.1 (0.5-2.0) mmol/L Calcium 10.0 (8.4-10.2) mg/dL Magnesium 2.1 (1.6-2.6) mg/dL Total Bilirubin 0.7 (0.0-1.0) mg/dL AST 19 (5-37) U/L ALT 23 (0-40) U/L Alkaline Phosphatase 82 (39-117) U/L Total Protein 7.4 (6.5-8.0) g/dL Albumin 4.3 (3.5-5.0) g/dL Lipase 16 (8-78) U/L Beta-Hydroxybutyrate 0.54 H (0.02-0.27) mmol/L Urine Color Urine Appearance Urine pH (5.0-9.0) Ur Specific [place] (1.005-1.025) Urine Protein (Neg-Trace) mg/dL Urine Glucose (UA) (Negative) mg/dL Urine Ketones (Negative) mg/dL Urine Blood (Negative) Urine Nitrite (Negative) Ur Leukocyte Esterase (Negative) Urine RBC (0-2) /HPF Urine WBC (0-5) /HPF Ur Squamous Epith Cells (0-2) /HPF Urine Bacteria (None Seen) Hyaline Casts (0-2) /LPF 11/08/22 11/08/22 Range/Units 18:10 20:00 WBC (4.8-10.8) X10*3/uL RBC (4.60-5.80) X10*6/uL Hgb (14.0-18.0) g/dl Hct (42.0-52.0) % MCV (80.0-98.0) fL MCH (27.0-33.0) pg MCHC (31.0-36.0) g/dl RDW (11.0-16.0) % Plt Count (160-400) X10*3/uL MPV (9.4-12.4) fL Immature Gran % (Auto) (0.0-0.4) % Neut % (Auto) (45-73) % Lymph % (Auto) (20-40) % [place] % (Auto) (2-11) % Eos % (Auto) (0-4) % Baso % (Auto) (0-2) % Lymph # (Auto) (1.2-4.9) X10*3/uL [place] # (Auto) (0.1-1.2) X10*3/uL Eos # (Auto) (0.0-0.4) X10*3/uL Baso # (Auto) (0.0-0.2) X10*3/uL Abs Immat Gran (auto) (0.00-0.03) X10*3/uL Absolute Neuts (auto) (2.0-8.3) x10*3/uL Absolute Nucleated RBC (0.0-0.012) X10*3/uL Nucleated RBC % (auto) (0.0-0.2) /100WBC VBG pH VBG pCO2 VBG pO2 VBG HCO3 VBG O2 Saturation VBG Base Excess Sodium (135-145) mmol/L Potassium (3.3-5.1) mmol/L Chloride (96-108) mmol/L Carbon Dioxide (22-29) mmol/L Anion Gap (12-20) BUN (9-16) mg/dL Creatinine (0.5-1.4) mg/dL Estim Creat Clear Calc Estimated GFR POC Glucose 231 H (60-115) mg/dL Random Glucose (60-115) mg/dL Lactic Acid (0.5-2.0) mmol/L Calcium (8.4-10.2) mg/dL Magnesium (1.6-2.6) mg/dL Total Bilirubin (0.0-1.0) mg/dL AST (5-37) U/L ALT (0-40) U/L Alkaline Phosphatase (39-117) U/L Total Protein (6.5-8.0) g/dL Albumin (3.5-5.0) g/dL Lipase (8-78) U/L Beta-Hydroxybutyrate (0.02-0.27) mmol/L Urine Color Yellow Urine Appearance Clear Urine pH 5.5 (5.0-9.0) Ur Specific [place] >= 1.030 H (1.005-1.025) Urine Protein Trace (Neg-Trace) mg/dL Urine Glucose (UA) >=1000 H (Negative) mg/dL Urine Ketones 15 (Negative) mg/dL Urine Blood Negative (Negative) Urine Nitrite Negative (Negative) Ur Leukocyte Esterase Negative (Negative) Urine RBC 0-2 (0-2) /HPF Urine WBC 0-5 (0-5) /HPF Ur Squamous Epith Cells 0-2 (0-2) /HPF Urine Bacteria None Seen (None Seen) Hyaline Casts 0-2 (0-2) /LPF External Record Review Patient's outpatient Pain record reviewed. Chronic Conditions Patient?s care impacted by: Diabetes and Hypertension Discharge Plan Discharge Clinical Impression: Diabetes mellitus Patient Disposition: Home, Self-Care Instructions: Diabetes and Nutrition (ED) Prescriptions: No Action loratadine [Claritin] 10 mg tablet 10 mg PO DAILY Qty: 20 0RF oxycodone 10 mg tablet 10 mg PO Q6H PRN (Reason: pain (scale score 7-10)) Qty: 30 0RF insulin lispro [Humalog KwikPen Insulin] 100 unit/mL insulin pen 36 unit subcut DAILY (DME) FreeStyle Lite Strips Strip See Rx Instructions .ROUTE .MEDSUPPLY Qty: 10 Rx Instructions: As directed (DME) lancets [FreeStyle Lancets] 28 gauge misc See Rx Instructions .ROUTE .MEDSUPPLY Qty: 100 Rx Instructions: As directed (DME) pen needle, diabetic [BD Ultra-Fine Sarah Pen Needle] 32 gauge x 5/32 needle See Rx Instructions .ROUTE .MEDSUPPLY Qty: 50 Rx Instructions: As directed amlodipine 5 mg tablet 5 mg PO DAILY atorvastatin 20 mg tablet 20 mg PO DAILY hydrocortisone 2.5 % cream 1 appl topical BEDTIME PRN (Reason: skin irritation) Qty: 20 0RF lisinopril 40 mg tablet 40 mg PO DAILY (DME) lancets [TRUEplus Lancets] 33 gauge misc See Rx Instructions Not Applicable TID Qty: 100 Rx Instructions: As directed amlodipine 10 mg tablet 10 mg PO DAILY carvedilol 6.25 mg tablet 6.25 mg PO BID pregabalin 50 mg capsule 50 mg PO BID 30 Days Qty: 60 0RF Referrals: Physician,Unknown J [Primary Care Provider] - 11/10/22
[2022-11-08] MEDS: 0.9 % Sodium Chloride 1,000 ML 999 ML IV ×2 (18:37→19:14)
[2022-11-08] MEDS: Insulin Regular, Human 100 UNIT/ML 3 ML VIAL IVPUSH (18:40)
[2022-11-08 18:41] LABS: Bacteria Urine None Seen (None Seen); Hyaline Casts Urine 0-2 /LPF (0-2); RBC Urine 0-2 /HPF (0-2); Squamous Epithelial Cell Urine 0-2 /HPF (0-2); WBC Urine 0-5 /HPF (0-5)
[2022-11-08 20:04] LABS: Glucose, Whole Blood 231 mg/dL (60-115)
== END 2022-11-08 21:44 | disposition home or self-care (01) ==
PROVIDERS: Nurse Practitioner Family; Emergency Provider Emergency Medicine Emergency Medical Services
DX: R63.1 Polydipsia (principal); E11.9 Type 2 diabetes mellitus without complications; I10 Essential (primary) hypertension; Z91.148 Patient's other noncompliance with medication regimen for other reason; Z79.899 Other long term (current) drug therapy; Z79.4 Long term (current) use of insulin
CPT/HCPCS: 36415; 80053; 81001; 82010; 82803; 82947; 83605; 83690; 83735; 85025; 96361; 96374; 99284

== ENCOUNTER 2023-03-05 08:29 | Outpatient (REF) | payer MEDICARE, MEDICAID, SELFPAY | END 2023-03-05 08:30 | disposition home or self-care (01) | LOC: HO.CHCLDS 08:29 | PROVIDERS: Visit Provider Internal Medicine | DX: E10.65 Type 1 diabetes mellitus with hyperglycemia (principal) | CPT/HCPCS: 36415; 80048; 80061; 80076; 82043; 82570; 85025; 86704; 86706; 86709; 86803; 87340 ==

== ENCOUNTER 2023-03-25 11:27 | Outpatient (AMB) | payer MEDICARE, MEDICAID, SELFPAY ==
--- NOTE | 2023-03-25 11:32 | A.OFFVIS_ITS ---
Intake Vital Signs 03/25/23 11:42 Height 6 ft 3 in Weight 235 lb 14.314 oz BMI 29.5 BP 120/78 Blood Pressure Location Lt brachial Position Sitting Intake Visit Reasons: follow-up Lt BKA Intake Note: Patient is seen in office for follow up visit, following left BKA. 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 He continues to have left stump pain and arrangements have been made for follow-up at the [facility] in [place]. He was seen by the physical chemist and is in need of a new leg. He is also being set up for a new electric wheelchair. He reports falling approximately a month ago landing on his face. He now has a counselor since his fall. [facility] Medical History Diabetes mellitus Peripheral neuropathy Hypertension Osteomyelitis of left foot Hypercholesterolemia Surgical History Status post cryoablation History of amputation of both great toes Family History Father History of hypertension Mother History of diabetes mellitus Social History Alcohol intake: current Alcohol intake frequency: 0-2 drinks per day Alcohol type: beer Physical Exam Vital Signs: Last Vital Signs BP 120/78 03/25/23 11:42 BMI result Body Mass Index 29.5 Const General: cooperative, comfortable and no acute distress Resp Effort & Inspection: normal respiratory effort, no cough and no respiratory distress Skin General skin exam: no rashes or lesions noted and dry skin Rashes: no rashes Extrem Other: Left below-knee amputation site is clean without skin breakdown or ulceration. The previous skin ulceration is now healed with no further areas of erythema are identified. Skin is in great condition. No leg edema is identified. The wound above the popliteal fossa is now completely healed with no further redness or discharge appreciated. Assessment & Plan Assessment & Plan (1) Stump pain: Code(s): T87.89 - Other complications of amputation stump; M79.609 - Pain in unspecified limb (2) Left leg pain: Code(s): M79.605 - Pain in left leg (3) Peripheral neuropathy: Code(s): G62.9 - Polyneuropathy, unspecified Plan 57-year-old male patient with a long history of diabetes, diabetic foot ulcers status post left BKA with chronic pain in the left leg. His current prosthetic is approximately 4 years old and is extremely unsafe at this time. He is in need of a replacement. A prescription will be sent to his physical chemist for replacement. He should return approximately 1 month for follow-up examination. Coding Level of Care Code Est Pt Level 3 (88702) Diagnoses Stump pain T87.89; M79.609 Left leg pain M79.605 Peripheral neuropathy G62.9
[2023-03-25 11:42] VITALS: BP 120/78; BMI 29.5
== END 2023-03-25 11:49 | disposition home or self-care (01) ==
PROVIDERS: Visit Provider Surgery
DX: T87.89 Other complications of amputation stump (principal); M79.609 Pain in unspecified limb; M79.605 Pain in left leg; G62.9 Polyneuropathy, unspecified
CPT/HCPCS: 99213

== ENCOUNTER → 2023-03-25 11:27 | Outpatient (BNVA) | payer MEDICARE, MEDICAID, SELFPAY | PROVIDERS: Visit Provider Surgery | DX: T87.89 Other complications of amputation stump (principal); M79.605 Pain in left leg; G62.9 Polyneuropathy, unspecified | CPT/HCPCS: 99212 ==

== ENCOUNTER 2023-05-25 09:27 | Outpatient (AMB) | payer MEDICARE, MEDICAID, SELFPAY ==
--- NOTE | 2023-05-25 09:30 | MHC.OFFVIS ---
Intake Vital Signs 05/25/23 09:35 Height 6 ft 3 in Weight 237 lb 8 oz BMI 29.7 BP 135/63 Blood Pressure Location Lt brachial Position Sitting Intake Visit Reasons: Lt BKA, 2 mo follow up Intake Note: Patient is seen in office for 2 month follow up visit, following left BKA. 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: No Accompanied by: Self / Same As Patient Allergies acetaminophen Allergy (Mild, Verified 05/25/23 09:36) Rash Medication List - Last Reconciled 05/25/23 by Armin Mchugh MD amlodipine 5 mg PO DAILY amlodipine 10 mg PO DAILY atorvastatin 20 mg PO DAILY blood sugar diagnostic (FreeStyle Lite Strips) As directed carvedilol 6.25 mg PO BID cyclobenzaprine 5 mg PO BEDTIME PRN hydrocortisone 2.5% 1 appl topical BEDTIME PRN insulin lispro (Humalog KwikPen (U-100) Insulin) 36 units subcut DAILY lancets (FreeStyle Lancets) As directed lancets (TRUEplus Lancets) As directed [Left lower limb prosthetic As directed] lisinopril 40 mg PO DAILY loratadine (Claritin) 10 mg PO DAILY nystatin 1 appl topical BID oxycodone 10 mg PO Q6H PRN pen needle, diabetic (BD Ultra-Fine Sarah Pen Needle) As directed pregabalin 50 mg PO BID 30 days HPI HPI Comments History of Present Illness Details Patient returns for re-evaluation of his left BKA stump. He has an area of ulceration on the anterior valencia approximately 5 cm above the stump. He still waiting for his new leg prosthesis. He is being fitted for a motorized chair and is currently using his neighbors chair. [facility] Medical History Diabetes mellitus Peripheral neuropathy Hypertension Osteomyelitis of left foot Hypercholesterolemia Surgical History Status post cryoablation History of amputation of both great toes Family History Father History of hypertension Mother History of diabetes mellitus Social History Alcohol intake: current Alcohol intake frequency: 0-2 drinks per day Alcohol type: beer Review of Systems Const Details: Denies fever, chills, night sweats, headaches, change in appetite, weight gain Resp Details: patient denies shortness of breath or cough Musc Details: patient complaining of pain at the left leg stump, joint stiffness, joint swelling as noted in HPI. Right knee pain as noted in HPI Reports as per HPI Skin/Breast Details: patient denies hives, itching, or rash Physical Exam Vital Signs: Last Vital Signs BP 135/63 05/25/23 09:35 BMI result Body Mass Index 29.7 Const General: cooperative, comfortable and no acute distress Resp Effort & Inspection: normal respiratory effort, no cough and no respiratory distress Skin General skin exam: no rashes or lesions noted and dry skin Rashes: no rashes Extrem Other: Left below-knee amputation site is clean an area of ulceration is noted in the anterior valencia. This was currently covered with a Band-Aid. The Band-Aid was removed and a pink foam dressing applied for added protection. Assessment & Plan Assessment & Plan (1) History of left below knee amputation: Code(s): Z89.512 - Acquired absence of left leg below knee Plan [place] foam dressing provided to the patient for added protection pending new leg. He will follow up in 1 month for wound check. Medications: Refilled oxycodone 10 mg PO Q6H PRN 30 tabs 0RF pain (scale score 7-10) Coding Level of Care Code Est Pt Level 3 (06457) Diagnoses History of left below knee amputation Z89.512
[2023-05-25 09:35] VITALS: BP 135/63; BMI 29.7
== END 2023-05-25 09:45 | disposition home or self-care (01) ==
PROVIDERS: Visit Provider Surgery
DX: Z89.512 Acquired absence of left leg below knee (principal)
CPT/HCPCS: 99213

== ENCOUNTER → 2023-05-25 09:27 | Outpatient (BNVA) | payer MEDICARE, MEDICAID, SELFPAY | PROVIDERS: Visit Provider Surgery | DX: L97.829 Non-pressure chronic ulcer of other part of left lower leg with unspecified severity (principal); Z89.512 Acquired absence of left leg below knee | CPT/HCPCS: 99212 ==

== ENCOUNTER 2023-06-22 09:00 | Outpatient (AMB) | payer MEDICARE, MEDICAID, SELFPAY ==
--- NOTE | 2023-06-22 09:27 | A.OFFVIS_ITS ---
Vital Signs 06/22/23 09:32 Height 6 ft 3 in Weight 237 lb BMI 29.6 BP 122/72 Blood Pressure Location Lt brachial Position Sitting Intake Visit Reasons: Lt BKA, 2 mo follow up Intake Note: Patient is seen in office for 2 month follow up visit, following left BKA. Pt c/o: redness around the stump might be due to prosthetic is getting a new one , increase pain. Media Services Specialist Required: No Accompanied by: Self / Same As Patient Allergies acetaminophen Allergy (Mild, Verified 06/22/23 09:32) Rash Medication List - Last Reconciled 06/22/23 by Armin Mchugh MD amlodipine 5 mg PO DAILY amlodipine 10 mg PO DAILY atorvastatin 20 mg PO DAILY blood sugar diagnostic (FreeStyle Lite Strips) As directed carvedilol 6.25 mg PO BID cyclobenzaprine 5 mg PO BEDTIME PRN foam bandage (Allevyn) As directed hydrocortisone 2.5% 1 appl topical BEDTIME PRN insulin lispro (Humalog KwikPen (U-100) Insulin) 36 units subcut DAILY lancets (FreeStyle Lancets) As directed lancets (TRUEplus Lancets) As directed [Left lower limb prosthetic As directed] lisinopril 40 mg PO DAILY loratadine (Claritin) 10 mg PO DAILY nystatin 1 appl topical BID oxycodone 10 mg PO Q6H PRN pen needle, diabetic (BD Ultra-Fine Sarah Pen Needle) As directed pregabalin 50 mg PO BID 30 days HPI Comments Details: Adonay returns for follow-up evaluation of a left BKA stump. He reports some discomfort from the callus which had formed due to a mouth fitting prosthesis. He is due to have his new prosthetic fitted next week. He has applying a bandage which is not as good as the foam dressing. He denies any bleeding or discharge. [facility] Medical History Diabetes mellitus Peripheral neuropathy Hypertension Osteomyelitis of left foot Hypercholesterolemia Surgical History Status post cryoablation History of amputation of both great toes Family History Father History of hypertension Mother History of diabetes mellitus Social History Alcohol intake: current Alcohol intake frequency: 0-2 drinks per day Alcohol type: beer Review of Systems Const Details: Denies fever, chills, night sweats, headaches, change in appetite, weight gain Resp Details: patient denies shortness of breath or cough Musc Details: patient complaining of pain at the left leg stump, joint stiffness, joint swelling as noted in HPI. Right knee pain as noted in HPI Reports as per HPI Skin/Breast Details: patient denies hives, itching, or rash Physical Exam Vital Signs: Last Vital Signs BP 122/72 06/22/23 09:32 BMI result Body Mass Index 29.6 Const General: cooperative, comfortable and no acute distress Resp Effort & Inspection: normal respiratory effort, no cough and no respiratory distress Skin General skin exam: no rashes or lesions noted and dry skin Rashes: no rashes Extrem Other: Left below-knee amputation site is clean an area of ulceration is noted in the anterior valencia. This was currently covered with a Band-Aid. The Band-Aid was removed and a pink foam dressing applied for added protection. Assessment & Plan Assessment & Plan (1) History of left below knee amputation: Code(s): Z89.512 - Acquired absence of left leg below knee Category: Surgical Plan [place] foam dressing provided to the patient for added protection pending new leg. He will follow up in 1 month for wound check. Medications: Refilled oxycodone 10 mg PO Q6H PRN 30 tabs 0RF pain (scale score 7-10)
[2023-06-22 09:32] VITALS: BP 122/72; BMI 29.6
== END 2023-06-22 09:42 | disposition home or self-care (01) ==
PROVIDERS: Visit Provider Surgery
DX: Z89.512 Acquired absence of left leg below knee (principal)
CPT/HCPCS: 99213

== ENCOUNTER → 2023-06-22 09:00 | Outpatient (BNVA) | payer MEDICARE, MEDICAID, SELFPAY | PROVIDERS: Visit Provider Surgery | DX: Z47.81 Encounter for orthopedic aftercare following surgical amputation (principal); Z89.512 Acquired absence of left leg below knee | CPT/HCPCS: 99212 ==

== ENCOUNTER 2023-08-03 09:54 | Outpatient (AMB) | payer MEDICARE, MEDICAID, SELFPAY ==
[2023-08-03 10:09] VITALS: BP 140/60; BMI 29.5
--- NOTE | 2023-08-03 10:09 | A.OFFVIS_ITS ---
Vital Signs 08/03/23 10:09 Height 6 ft 3 in Weight 235 lb 14.314 oz BMI 29.5 BP 140/60 H Blood Pressure Location Lt brachial Position Sitting Intake Visit Reasons: Lt BKA, 1 mo follow up Intake Note: Patient is seen in office for one month follow up visit, following left BKA. Pt c/o: admits to increase pain in the area Gi Physician Required: No Accompanied by: Self / Same As Patient Allergies acetaminophen Allergy (Mild, Verified 08/03/23 10:10) Rash HPI Comments Details: Adonay returns for follow-up examination following left BKA. He reports doing too much resulting in increased pain on the valencia area of the left stump. He has been applying a Band-Aid because the pink foam dressing was not covered by insurance. As a result he has more pain from the lack of cushioning. He is due to have his new leg sized tomorrow. He reports avoiding all walking and staying at home as much as possible. [facility] Medical History Diabetes mellitus Peripheral neuropathy Hypertension Osteomyelitis of left foot Hypercholesterolemia Surgical History Status post cryoablation History of amputation of both great toes Family History Father History of hypertension Mother History of diabetes mellitus Social History Alcohol intake: current Alcohol intake frequency: 0-2 drinks per day Alcohol type: beer Physical Exam Vital Signs: Last Vital Signs BP 140/60 H 08/03/23 10:09 BMI result Body Mass Index 29.5 Const General: cooperative, comfortable and no acute distress Resp Effort & Inspection: normal respiratory effort, no cough and no respiratory distress Skin General skin exam: no rashes or lesions noted and dry skin Rashes: no rashes Extrem Other: Left below-knee amputation site is clean an area of ulceration is noted in the anterior valencia. This was currently covered with a Band-Aid. The Band-Aid was removed and a pink foam dressing applied for added protection. Assessment & Plan Assessment & Plan (1) History of left below knee amputation: Code(s): Z89.512 - Acquired absence of left leg below knee Category: Surgical Plan [place] foam dressing provided to the patient for added protection pending new leg. He will follow up in 1 month for wound check. He should go ahead and obtain a new leg prosthesis. I will start him on antibiotics for the next 2 weeks as well. Medications: New doxycycline hyclate 100 mg PO BID 28 tabs 0RF Refilled oxycodone 10 mg PO Q6H PRN 30 tabs 0RF pain (scale score 7-10) Coding Level of Care Code Est Pt Level 3 (66552) Diagnoses History of left below knee amputation Z89.512
== END 2023-08-03 10:18 | disposition home or self-care (01) ==
PROVIDERS: Visit Provider Surgery
DX: Z89.512 Acquired absence of left leg below knee (principal)
CPT/HCPCS: 99213

== ENCOUNTER → 2023-08-03 09:54 | Outpatient (BNVA) | payer MEDICARE, MEDICAID, SELFPAY | PROVIDERS: Visit Provider Surgery | DX: Z47.81 Encounter for orthopedic aftercare following surgical amputation (principal); Z89.512 Acquired absence of left leg below knee | CPT/HCPCS: 99212 ==

== ENCOUNTER 2023-09-14 10:27 | Outpatient (AMB) | payer MEDICARE, MEDICAID, SELFPAY ==
--- NOTE | 2023-09-14 10:29 | MHC.OFFVIS ---
Vital Signs 09/14/23 10:35 Height 6 ft 3 in Weight 231 lb BMI 28.9 BP 119/60 Blood Pressure Location Lt brachial Position Sitting Pulse 65 Intake Visit Reasons: Lt BKA, 1 mo follow up Intake Note: Patient is seen in office for one month follow up visit, following left BKA. Pt c/o: just got a new prosthesis and is all done with antibiotics, denies any new concerns [employer] Dies Required: No Accompanied by: Self / Same As Patient Allergies acetaminophen Allergy (Mild, Verified 09/14/23 10:29) Rash HPI Comments Details: Adonay returns approximately 1 month after receiving his new prosthesis. The valencia area of the left leg is much improved however he does note some increased discomfort at the bottom of the stump. He wears between a 3 and a 6 gel pad but has too much throbbing with a 6. With a 3 he requires to socks and may have extra Motion causing increased discomfort. He denies any open wounds at this time. [facility] Medical History Diabetes mellitus Peripheral neuropathy Hypertension Osteomyelitis of left foot Hypercholesterolemia Surgical History Status post cryoablation History of amputation of both great toes Family History Father History of hypertension Mother History of diabetes mellitus Social History Alcohol intake: current Alcohol intake frequency: 0-2 drinks per day Alcohol type: beer Physical Exam Vital Signs: Last Vital Signs Pulse 65 09/14/23 10:35 BP 119/60 09/14/23 10:35 BMI result Body Mass Index 28.9 Const General: cooperative, comfortable and no acute distress Resp Effort & Inspection: normal respiratory effort, no cough and no respiratory distress Skin General skin exam: no rashes or lesions noted and dry skin Rashes: no rashes Extrem Other: Left below-knee amputation site is clean with no further open areas. No bruising or erythema is appreciated. Assessment & Plan Assessment & Plan (1) History of left below knee amputation: Code(s): Z89.512 - Acquired absence of left leg below knee Category: Surgical Plan Ranulfo has now been fitted with a new prosthetic which does seem to be helping. He no longer has an open wound on the stump but does have increased pain at the base of the stump. I suggested he follow-up with the chief payroll clerk to see if additional padding is required. He will follow-up in approximately 2 months. Medications: Refilled oxycodone 10 mg PO Q6H PRN 30 tabs 0RF pain (scale score 7-10) Coding Level of Care Code Est Pt Level 3 (60665) Diagnoses History of left below knee amputation Z89.512
[2023-09-14 10:35] VITALS: BP 119/60; PULSE 65; BMI 28.9
== END 2023-09-14 10:43 | disposition home or self-care (01) ==
PROVIDERS: Visit Provider Surgery
DX: T87.89 Other complications of amputation stump (principal); Z89.512 Acquired absence of left leg below knee
CPT/HCPCS: 99213

== ENCOUNTER → 2023-09-14 10:27 | Outpatient (BNVA) | payer MEDICARE, MEDICAID, SELFPAY | PROVIDERS: Visit Provider Surgery | DX: Z47.81 Encounter for orthopedic aftercare following surgical amputation (principal); Z89.512 Acquired absence of left leg below knee | CPT/HCPCS: 99212 ==

== ENCOUNTER 2023-10-29 20:10 | Inpatient (IN) | payer MEDICARE, MEDICAID, SELFPAY ==
--- NOTE | 2023-10-29 | ECG_ITS ---
Test Reason : rhythm change Blood Pressure : / mmHG Vent. Rate : 088 BPM Atrial Rate : 088 BPM P-R Int : 168 ms QRS Dur : 168 ms QT Int : 428 ms P-R-T Axes : 056 -69 043 degrees QTc Int : 517 ms Normal sinus rhythm Possible Left atrial enlargement Left axis deviation Right bundle branch block Inferior infarct , age undetermined Abnormal ECG When compared with ECG of 26-JUN-2016 14:42, Right bundle branch block is now Present Inferior infarct is now Present Referred By: Generic ED Physician Electronically Signed By:MARLENE WATERS
--- NOTE | ~2023-10-29 | XR_ITS ---
EXAMINATION: XR FOOT, RIGHT CLINICAL INFORMATION: Ulcer. Concern for osteomyelitis. COMPARISON: None available. TECHNIQUE: AP, lateral, and oblique views of the right foot. FINDINGS: The bone mineralization is within normal limits. There has been prior amputation of the first digit . There is mild subchondral sclerosis second metatarsal head likely chronic. There is no acute fracture. The remaining joint spaces are maintained. There is arteriovascular calcifications to the metatarsals. There is mild soft tissue swelling about the foot. XR/XR foot RT 2V IMPRESSION: 1. Mild soft tissue swelling about the foot. 2. No acute fracture. 3. Prior amputation of the first digit. 4. Mild subchondral sclerosis of the second metatarsal head likely chronic. Electronically signed by: Luis Alberto Mar MD 10/30/2023 01:25 AM EDT
--- NOTE | ~2023-10-29 | MR_ITS ---
EXAMINATION: MR FOOT WITHOUT AND WITH CONTRAST, RIGHT CLINICAL INFORMATION: Pain and redness. Evaluate for osteomyelitis. Plantar wound. COMPARISON: None available. TECHNIQUE: MRI of the right foot was performed before and after the intravenous administration of 10 mL Gadavist on a high-field scanner. FINDINGS: There is a shallow ulcer of the heel pad with underlying edema/enhancement compatible with cellulitis. No abscess. No evidence of osteomyelitis. The plantar fascia is thickened. No tear. Low signal thickening of the Achilles tendon compatible with mild chronic tendinosis. The posterior tibialis tendon, peroneal tendons, flexor and extensor tendons are otherwise unremarkable. No ankle joint effusion. No talar OCD. Ankle ligaments appear intact. Probable remote anterior talofibular ligament sprain. MR/MR foot RT wo/w con IMPRESSION: 1. Shallow ulcer of the heel pad with underlying cellulitis. No abscess. No evidence of osteomyelitis. 2. Mild chronic Achilles tendinosis. Electronically signed by: John Page MD 10/30/2023 12:32 PM EDT
[2023-10-29 20:16] VITALS: BP 124/61; PULSE 85; RESP 18; TEMP 36.8; O2SAT 94
[2023-10-29 20:18] VITALS: BP 123/82; BP 124/61; PULSE 85; PULSE 88; RESP 14; TEMP 36.7; O2SAT 96; O2SAT 97; BMI 29.0
[2023-10-29 20:26] LABS: Glucose, Whole Blood 231 mg/dL (60-115)
[2023-10-29 20:36] LABS: MANUAL DIFF FLAG NO
[2023-10-29 20:39] LABS: Basophils Absolute Auto 0.1 X10*3/uL (0.0-0.2); Basophils Percent Auto 1.1 % (0-2); Eosinophils Absolute Auto 0.1 X10*3/uL (0.0-0.4); Eosinophils Percent Auto 2.3 % (0-4); Hematocrit 41.7 % (42.0-52.0); Hemoglobin 14.9 g/dl (14.0-18.0); Imm Gran Abs Auto 0.02 X10*3/uL (0.00-0.03); Imm Gran Pct Auto 0.3 % (0.0-0.4); Lymphocytes Absolute Auto 1.8 X10*3/uL (1.2-4.9); Lymphocytes Percent Auto 29.3 % (20-40); Mean Corpuscular HGB Conc 35.7 g/dl (31.0-36.0); Mean Corpuscular Hemoglobin 32.7 pg (27.0-33.0); Mean Corpuscular Volume 91.4 fL (80.0-98.0); Mean Platelet Volume 9.7 fL (9.4-12.4); Monocytes Absolute Auto 0.4 X10*3/uL (0.1-1.2); Monocytes Percent Auto 6.4 % (2-11); Neutrophils Absolute Auto 3.7 x10*3/uL (2.0-8.3); Neutrophils Percent Auto 60.6 % (45-73); Platelet Count 242 X10*3/uL (160-400); Red Blood Count 4.56 X10*6/uL (4.60-5.80); Red Cell Distribution Width 12.1 % (11.0-16.0); White Blood Count 6.1 X10*3/uL (4.8-10.8)
[2023-10-29 21:02] LABS: Alanine Aminotransferase 18 U/L (0-40); Albumin Level 3.8 g/dL (3.5-5.0); Alkaline Phosphatase 84 U/L (39-117); Anion Gap 14 (12-20); Aspartate Amino Transferase 17 U/L (5-37); Bilirubin Total 0.6 mg/dL (0.0-1.0); Blood Urea Nitrogen 17 mg/dL (9-16); Calcium 9.9 mg/dL (8.4-10.2); Carbon Dioxide 25 mmol/L (22-29); Chloride 101 mmol/L (96-108); Creatinine Clr Calc Pharmacy 118.5; Estimated Glomerular Filt Rate > 60; Glucose Random 226 mg/dL (60-115); Potassium 3.5 mmol/L (3.3-5.1); Sodium 136 mmol/L (135-145); Total Protein 6.8 g/dL (6.5-8.0)
--- NOTE | 2023-10-29 22:30 | ED_ITS ---
HPI - Extremity Problem General Chief complaint: Extremity Problem Stated complaint: R heel foot wound, partial amputation L leg Time Seen by Provider: 10/29/23 22:14 Source: patient and EMS Mode of arrival: EMS Limitations: no limitations History of Present Illness ED Provider: Dr. Guerda Ellis HPI Narrative: Patient comes to the emergency room via ambulance. Patient reports that he has been having right heel pain for 3-4 days along with an ulcer. Patient states that the pain has gradually been getting worse if he puts any weight on it. Patient states that he does have neuropathy in his feet but he can feel the pain in the heel. Patient denies any fever or chills. Related Data Home Medications ?Medication ?Instructions ?Recorded ?Confirmed amlodipine 5 mg tablet 5 mg PO DAILY 11/30/19 06/22/23 atorvastatin 20 mg tablet 20 mg PO DAILY 11/30/19 06/22/23 blood sugar diagnostic (FreeStyle #10 ea 11/30/19 06/22/23 Lite Strips) insulin lispro 100 unit/mL 36 unit subcut DAILY 11/30/19 06/22/23 subcutaneous pen (Humalog KwikPen (U-100) Insulin) lancets 28 gauge (FreeStyle #100 ea 11/30/19 06/22/23 Lancets) pen needle, diabetic 32 gauge x #50 ea 11/30/19 06/22/23 (BD Ultra-Fine Sarah Pen Needle) amlodipine 10 mg tablet 10 mg PO DAILY 04/15/21 06/22/23 carvedilol 6.25 mg tablet 6.25 mg PO BID 04/15/21 06/22/23 lancets 33 gauge (TRUEplus Lancets) #100 ea 04/15/21 06/22/23 lisinopril 40 mg tablet 40 mg PO DAILY 04/15/21 06/22/23 Previous Rx's ?Medication ?Instructions ?Recorded hydrocortisone 2.5 % topical cream 1 appl topical BEDTIME PRN skin 08/09/20 irritation #20 grams loratadine 10 mg tablet (Claritin) 10 mg PO DAILY #20 tabs 09/13/20 pregabalin 50 mg capsule 50 mg PO BID pain 30 days #60 caps 05/15/21 nystatin 100,000 unit/gram topical 1 appl topical BID #15 grams 02/26/23 cream cyclobenzaprine 5 mg tablet 5 mg PO BEDTIME PRN muscle spasm 04/01/23 #14 tabs Left lower limb prosthetic #1 ea 04/07/23 doxycycline hyclate 100 mg tablet 100 mg PO BID #28 tabs 08/03/23 foam bandage 4 X 4 (Allevyn) #30 ea 10/11/23 oxycodone 10 mg tablet 10 mg PO Q6H PRN pain (scale score 10/28/23 7-10) #30 tabs Allergies Allergy/AdvReac Type Severity Reaction Status Date / Time acetaminophen Allergy Mild Rash Verified 10/29/23 20:21 Review of Systems 2 Review of Systems: Constitutional : No Weight loss, No Fever, No Chills, No Night Sweats, No Fatigue, No Malaise ENT/Mouth : No Hearing loss, No Ear Pain, No Nasal Congestion, No Sinus Pain, No Hoarseness, No sore throat, No Rhinorrhea, No Swallowing Difficulty Eyes: No Eye Pain, No Swelling, No Redness, No Foreign Body, No Discharge, No Vision Changes Cardiovascular : No Chest Pain, No SOB, No Dyspnea on Exertion, No Orthopnea, No Edema, No Palpitations Respiratory : No Cough, No Sputum, No Wheezing, No Smoke Exposure, No Dyspnea Gastrointestinal : No Nausea, No Vomiting, No Diarrhea, No Constipation, No abdominal Pain, No Hematochezia, No Melena Genitourinary : no irregular bleeding, No Dysuria, No Urinary Frequency, No Hematuria, No Urinary Incontinence, No Urgency, No Flank Pain, No Urinary Flow Changes, No Hesitancy Musculoskeletal : Complaining of right heel pain and an unstageable ulcer No Myalgias, No Joint Swelling Skin : No Skin Lesions, No rash Neuro : No Weakness, No Numbness, No Paresthesias, No Loss of Consciousness, No Dizziness, No Headache Psych : No Anxiety/Panic, No Depression, No SI/HI/AH/VH, No Social Issues, Heme/Lymph: No Bruising, No Bleeding,No Lymphadenopathy Endocrine : No Polyuria, No Polydipsia, No Temperature Intolerance [facility] Past Medical History Medical History Diabetes mellitus Peripheral neuropathy Hypertension Osteomyelitis of left foot Hypercholesterolemia Surgical History Status post cryoablation History of amputation of both great toes Family History Family History Father History of hypertension Mother History of diabetes mellitus Social History Social History Alcohol intake: current Alcohol intake frequency: 0-2 drinks per day Alcohol type: beer Advance Directives: No Advance Directives Information Provided: No Physical Exam 2 Vital Signs: Vital Signs: Last Vital Signs Temp 99 F 10/29/23 23:34 Pulse 85 10/29/23 23:34 Resp 18 10/29/23 23:34 BP 122/67 10/29/23 23:34 Pulse Ox 94 10/29/23 23:34 O2 Del Method Room Air 10/29/23 23:34 BMI result Body Mass Index 29.0 Const: Other: Appearance: Alert. Oriented X3. No acute distress. Eyes: Pupils equal, round and reactive to light. ENT: Pharynx normal. Neck: Normal inspection. Neck supple. No lymph nodes noted. No crepitus CVS: Normal heart rate and rhythm. Pulses normal. Normal S1 and S2 Respiratory: No respiratory distress. Breath sounds normal. No Wheezing. No rales Abdomen: Soft and nontender. No rigidity. No distention. Skin: Skin warm and dry. Normal skin color. Normal skin turgor. Extremities: Left BKA, patient has toes missing on the left foot, patient has an unstageable ulcer on the heel of the foot. Pain to palpation, no drainage. However there is a foul odor Neuro: Oriented X 3. No motor deficit. No sensory deficit. Moving all extremities. No slurred speech. CN 2 through 12 grossly intact Psych: calm, cooperative, normal affect Course Course Course Narrative: Of patient's labs and imaging pending Medical Decision Making Medical Decision Making MDM Narrative: My interpretation of labs, normal white blood cell count, normal chemistry, normal LFTs -patient's vitals stable, blood pressure 124/61, pulse 85, no fever -my interpretation of x-ray of the foot: No obvious abnormality. -although patient's labs are normal, patient does have an unstageable ulcer. The concern is that if the patient eventually gets osteo, he may lose his only foot. I discussed the patient with from the Medicine team, patient being admitted Differential Diagnosis Differential Diagnoses: The differential diagnosis associated with the presentation includes (Cellulitis, unstageable ulcer, osteomyelitis) Admission/Observation Consideration of admission/observation: Escalation of care including admission/observation considered Consult Healthcare Provider Management of the patient was discussed with: Hospitalist Lab Data [facility] Lab Attestation statement: I reviewed the patient's lab results. 10/29/23 20:31 10/29/23 20:31 Labs: Lab Results 10/29/23 10/29/23 10/30/23 Range/Units 20:23 20:31 01:03 WBC 6.1 (4.8-10.8) X10*3/uL RBC 4.56 L (4.60-5.80) X10*6/uL Hgb 14.9 (14.0-18.0) g/dl Hct 41.7 L (42.0-52.0) % MCV 91.4 (80.0-98.0) fL MCH 32.7 (27.0-33.0) pg MCHC 35.7 (31.0-36.0) g/dl RDW 12.1 (11.0-16.0) % Plt Count 242 (160-400) X10*3/uL MPV 9.7 (9.4-12.4) fL Immature Gran % (Auto) 0.3 (0.0-0.4) % Neut % (Auto) 60.6 (45-73) % Lymph % (Auto) 29.3 (20-40) % [place] % (Auto) 6.4 (2-11) % Eos % (Auto) 2.3 (0-4) % Baso % (Auto) 1.1 (0-2) % Lymph # (Auto) 1.8 (1.2-4.9) X10*3/uL [place] # (Auto) 0.4 (0.1-1.2) X10*3/uL Eos # (Auto) 0.1 (0.0-0.4) X10*3/uL Baso # (Auto) 0.1 (0.0-0.2) X10*3/uL Abs Immat Gran (auto) 0.02 (0.00-0.03) X10*3/uL Absolute Neuts (auto) 3.7 (2.0-8.3) x10*3/uL Absolute Nucleated RBC 0.000 (0.0-0.012) X10*3/uL Nucleated RBC % (auto) 0.0 (0.0-0.2) /100WBC Hold Purple Top SEE NOTE Sodium 136 (135-145) mmol/L Potassium 3.5 (3.3-5.1) mmol/L Chloride 101 (96-108) mmol/L Carbon Dioxide 25 (22-29) mmol/L Anion Gap 14 (12-20) BUN 17 H (9-16) mg/dL Creatinine 0.87 (0.5-1.4) mg/dL Estim Creat Clear Calc 118.5 Estimated GFR > 60 POC Glucose 231 H 186 H (60-115) mg/dL Random Glucose 226 H (60-115) mg/dL Calcium 9.9 (8.4-10.2) mg/dL Total Bilirubin 0.6 (0.0-1.0) mg/dL AST 17 (5-37) U/L ALT 18 (0-40) U/L Alkaline Phosphatase 84 (39-117) U/L Total Protein 6.8 (6.5-8.0) g/dL Albumin 3.8 (3.5-5.0) g/dL Independent Interpretation I performed an independent interpretation of an: Plain X-Ray Radiology Impression Discussion of test interpretation with radiology: I have reviewed the radiologist's reading. Radiologist Impression: The bone mineralization is within normal limits. There has been prior amputation of the first digit . There is mild subchondral sclerosis second metatarsal head likely chronic. There is no acute fracture. The remaining joint spaces are maintained. There is arteriovascular calcifications to the metatarsals. There is mild soft tissue swelling about the foot. XR/XR foot RT 2V IMPRESSION: 1. Mild soft tissue swelling about the foot. 2. No acute fracture. 3. Prior amputation of the first digit. 4. Mild subchondral sclerosis of the second metatarsal head likely chronic. Critical Care Time Critical Care Time Critical Care Time: Yes Total Critical Care Time: 60 Attestation: I have personally provided critical care time. Time includes review of lab data, radiology results, discussion with consultants, and monitoring for potential decompensation. Intervention performed as documented. Discharge Plan Discharge Clinical Impression: Cellulitis, Diabetic foot ulcer Patient Disposition: Admitted As Inpatient Prescriptions: No Action loratadine [Claritin] 10 mg tablet 10 mg PO DAILY Qty: 20 0RF nystatin 100,000 unit/gram cream 1 appl topical BID Qty: 15 0RF cyclobenzaprine 5 mg tablet 5 mg PO BEDTIME PRN (Reason: muscle spasm) Qty: 14 0RF (DME) Left lower limb prosthetic to fit See Rx Instructions .Route .MEDSUPPLY Qty: 1 0RF Rx Instructions: As directed (DME) Allevyn 4 X 4 bandage See Rx Instructions .Route Qty: 30 1RF Rx Instructions: As directed oxycodone 10 mg tablet 10 mg PO Q6H PRN (Reason: pain (scale score 7-10)) Qty: 30 0RF insulin lispro [Humalog KwikPen Insulin] 100 unit/mL insulin pen 36 unit subcut DAILY (DME) FreeStyle Lite Strips Strip See Rx Instructions .ROUTE .MEDSUPPLY Qty: 10 Rx Instructions: As directed (DME) lancets [FreeStyle Lancets] 28 gauge misc See Rx Instructions .ROUTE .MEDSUPPLY Qty: 100 Rx Instructions: As directed (DME) pen needle, diabetic [BD Ultra-Fine Sarah Pen Needle] 32 gauge x 5/32 needle See Rx Instructions .ROUTE .MEDSUPPLY Qty: 50 Rx Instructions: As directed amlodipine 5 mg tablet 5 mg PO DAILY atorvastatin 20 mg tablet 20 mg PO DAILY hydrocortisone 2.5 % cream 1 appl topical BEDTIME PRN (Reason: skin irritation) Qty: 20 0RF lisinopril 40 mg tablet 40 mg PO DAILY (DME) lancets [TRUEplus Lancets] 33 gauge misc See Rx Instructions Not Applicable TID Qty: 100 Rx Instructions: As directed amlodipine 10 mg tablet 10 mg PO DAILY carvedilol 6.25 mg tablet 6.25 mg PO BID pregabalin 50 mg capsule 50 mg PO BID 30 Days Qty: 60 0RF doxycycline hyclate 100 mg tablet 100 mg PO BID Qty: 28 0RF Print Language: Sinhala
[2023-10-29 23:34] VITALS: BP 122/67; PULSE 85; RESP 18; TEMP 37.2; O2SAT 94
[2023-10-30] VITALS (7 sets, daily range): BP systolic 117–150; BP diastolic 54–74; PULSE 67–88; RESP 14–20; TEMP 36.2–37.1; O2SAT 93–96; BMI 29.1
[2023-10-30 01:07] LABS: Glucose, Whole Blood 186 mg/dL (60-115)
--- NOTE | 2023-10-30 01:47 | P.HPHOSP_ITS ---
History of Present Illness Date of Service: 10/30/23 Chief Complaint: Foot infection This is a 58-year-old male with pertinent history of insulin-dependent diabetes mellitus with neuropathy, hypertension, mixed hyperlipidemia, peripheral vascular disease status post left BKA and right toe amputations presents to the emergency department for evaluation of foot pain. Patient states his symptoms have been ongoing for the last 4-5 days. He has a wound on his right heel and it has been draining foul-smelling pus for the last 2 days. The pain has progressively worsened and he can not put any weight on it. No fever, chills, chest discomfort, palpitations, shortness of breath, abdominal pain, changes in urinary or bowel habits. In the emergency department, patient was given empiric IV antibiotics. Review of Systems 2 Constitutional: Constitutional: Reports no additional constitutional complaints Cardiovascular: Cardiovascular: Reports no additional cardiovascular complaints Respiratory: Respiratory: Reports no additional respiratory complaints Gastrointestinal: Gastrointestinal: Reports no additional gastrointestinal complaints Genitourinary: Genitourinary: Reports no additional male genitourinary complaints [facility] Medical History Diabetes mellitus Peripheral neuropathy Hypertension Osteomyelitis of left foot Hypercholesterolemia Family History Father History of hypertension Mother History of diabetes mellitus Surgical History Status post cryoablation History of amputation of both great toes Social History Alcohol intake: current Alcohol intake frequency: 3 or more drinks per day Alcohol type: beer Patient Tobacco Use Status: Current everyday Tobacco user Smoked in Last 30 Days: No Use of substances other than those prescribed or required for medical reasons: No Advance Directives: No Advance Directives Information Provided: No Nutrition Risks: Diabetes new onset/Uncontrolled Meds Allergies Allergy/AdvReac Type Severity Reaction Status Date / Time acetaminophen Allergy Mild Rash Verified 10/29/23 20:21 Home Medications ?Medication ?Instructions ?Recorded ?Confirmed ?Last Taken ?Type amlodipine 5 mg tablet 5 mg PO DAILY 11/30/19 06/22/23 Unknown History atorvastatin 20 mg tablet 20 mg PO DAILY 11/30/19 06/22/23 Unknown History blood sugar diagnostic (FreeStyle #10 ea 11/30/19 06/22/23 Unknown History Lite Strips) insulin lispro 100 unit/mL 36 unit subcut DAILY 11/30/19 06/22/23 Unknown History subcutaneous pen (Humalog KwikPen (U-100) Insulin) lancets 28 gauge (FreeStyle #100 ea 11/30/19 06/22/23 Unknown History Lancets) pen needle, diabetic 32 gauge x #50 ea 11/30/19 06/22/23 Unknown History (BD Ultra-Fine Sarah Pen Needle) amlodipine 10 mg tablet 10 mg PO DAILY 04/15/21 06/22/23 Unknown History carvedilol 6.25 mg tablet 6.25 mg PO BID 04/15/21 06/22/23 Unknown History lancets 33 gauge (TRUEplus Lancets) #100 ea 04/15/21 06/22/23 Unknown History lisinopril 40 mg tablet 40 mg PO DAILY 04/15/21 06/22/23 Unknown History Physical Exam 2 Vital Signs and Narrative: Vital Signs: Last Vital Signs Temp 99 F 10/29/23 23:34 Pulse 85 10/29/23 23:34 Resp 18 10/29/23 23:34 BP 122/67 10/29/23 23:34 Pulse Ox 94 10/29/23 23:34 O2 Del Method Room Air 10/29/23 23:34 BMI result Body Mass Index 29.0 Middle-aged male lying in bed in no distress Neck supple, no JVD Regular rate and rhythm, S1-S2 heard Regular breath sounds bilaterally, no wheezing or crackles appreciated Abdomen soft nontender, no guarding, no rigidity Patient is awake, alert and oriented to self, place, time and person ; no focal motor deficit Psych: Normal mood Right foot ventral surface with purulent foul-smelling ulcer with surrounding erythema, warmth and tenderness ; right toe amputations seen ; left BKA Results Labs 10/29/23 20:31 10/29/23 20:31 Labs: Laboratory Results - last 24 hr 10/29/23 10/29/23 10/30/23 20:23 20:31 01:03 MCV 91.4 MCH 32.7 MCHC 35.7 RDW 12.1 Plt Count 242 MPV 9.7 Immature Gran % (Auto) 0.3 Neut % (Auto) 60.6 Lymph % (Auto) 29.3 [place] % (Auto) 6.4 Eos % (Auto) 2.3 Baso % (Auto) 1.1 Lymph # (Auto) 1.8 [place] # (Auto) 0.4 Eos # (Auto) 0.1 Baso # (Auto) 0.1 Abs Immat Gran (auto) 0.02 Absolute Neuts (auto) 3.7 Absolute Nucleated RBC 0.000 Nucleated RBC % (auto) 0.0 Hold Purple Top SEE NOTE Anion Gap 14 Estim Creat Clear Calc 118.5 Estimated GFR > 60 POC Glucose 231 H 186 H Random Glucose 226 H Calcium 9.9 Total Bilirubin 0.6 AST 17 ALT 18 Alkaline Phosphatase 84 Total Protein 6.8 Albumin 3.8 Imaging Radiologist's Impressions: Impressions Foot X-Ray 10/29/23 22:35 IMPRESSION: 1. Mild soft tissue swelling about the foot. 2. No acute fracture. 3. Prior amputation of the first digit. 4. Mild subchondral sclerosis of the second metatarsal head likely chronic. Electronically signed by: Luis Alberto Mar MD 10/30/2023 01:25 AM EDT RP Assessment and Plan (1) Diabetic foot ulcer: Status: Acute (2) Cellulitis: Status: Acute Plan This is a 58-year-old male with pertinent history of insulin-dependent diabetes mellitus with neuropathy, hypertension, mixed hyperlipidemia, peripheral vascular disease status post left BKA and right toe amputations presents to the emergency department for evaluation of foot pain. #. Right foot diabetic foot infected ulcer with purulent cellulitis: Will admit patient and initiate empiric IV cefepime and vancomycin. No sepsis. Consulting Wound Care. No sepsis #. Insulin-dependent diabetes mellitus with hyperglycemia and neuropathy: Initiating basal plus insulin regimen. Continue Lyrica #. Hypertension: Continue home antihypertensives #. Mixed hyperlipidemia: On statin Med rec pending DVT prophylaxis: Lovenox Full code Admit as inpatient and will require two night minimum hospital stay for IV antibiotics (as above), which is not possible in a lesser acute setting. Quality Stroke Does the patient have a stroke diagnosis?: No VTE Prior VTE?: No VTE Risk Level:: Medical - moderate - high VTE Device Contraindication: Treatment Not Indicated VTE Drug Contraindication: N/A - Med Ordered
--- NOTE | 2023-10-30 01:58 | PC.NURSE ---
per no blood cultures prior to admin of iv abx.
[2023-10-30] MEDS: Piperacillin Sodium/Tazobactam 3.375 GM in 0.9 % Sodium Chloride 50 ML IV (02:08)
--- NOTE | 2023-10-30 02:16 | PC.NURSE ---
pt refuses inpatient consultation with addiction as drinks 5+ drinks per day every day. pt denies withdrawal sx when not drinking. states I will take care of it on my own when offered consult for detox.
[2023-10-30] MEDS: vancomycin/NS 2,000 MG/500 ML PLAST..BAG 250 MG IV (03:05)
[2023-10-30] MEDS: Insulin Glargine,Hum.rec.anlog 100 UNIT/ML 10 ML VIAL 28 UNIT SUBCUT (03:10)
[2023-10-30] MEDS: Enoxaparin Sodium 40 MG/0.4 ML SYRINGE SUBCUT (03:10)
[2023-10-30 04:59] LABS: Basophils Absolute Auto 0.1 X10*3/uL (0.0-0.2); Basophils Percent Auto 0.9 % (0-2); Eosinophils Absolute Auto 0.1 X10*3/uL (0.0-0.4); Eosinophils Percent Auto 1.7 % (0-4); Hematocrit 41.3 % (42.0-52.0); Hemoglobin 14.4 g/dl (14.0-18.0); Imm Gran Abs Auto 0.03 X10*3/uL (0.00-0.03); Imm Gran Pct Auto 0.4 % (0.0-0.4); Lymphocytes Absolute Auto 1.6 X10*3/uL (1.2-4.9); Lymphocytes Percent Auto 18.6 % (20-40); MANUAL DIFF FLAG NO; Mean Corpuscular HGB Conc 34.9 g/dl (31.0-36.0); Mean Corpuscular Volume 91.8 fL (80.0-98.0); Mean Platelet Volume 9.7 fL (9.4-12.4); Monocytes Absolute Auto 0.5 X10*3/uL (0.1-1.2); Monocytes Percent Auto 5.3 % (2-11); Neutrophils Absolute Auto 6.2 x10*3/uL (2.0-8.3); Neutrophils Percent Auto 73.1 % (45-73); Platelet Count 227 X10*3/uL (160-400); Red Cell Distribution Width 12.2 % (11.0-16.0); White Blood Count 8.4 X10*3/uL (4.8-10.8)
[2023-10-30 05:19] LABS: Anion Gap 13 (12-20); Blood Urea Nitrogen 15 mg/dL (9-16); Calcium 9.3 mg/dL (8.4-10.2); Carbon Dioxide 24 mmol/L (22-29); Chloride 101 mmol/L (96-108); Creatinine Clr Calc Pharmacy 113.3; Estimated Glomerular Filt Rate > 60; Glucose Random 294 mg/dL (60-115); Potassium 4.4 mmol/L (3.3-5.1); Sodium 134 mmol/L (135-145)
--- NOTE | 2023-10-30 06:53 | PHA.PROG ---
Admission Date/Time: October 30, 2023 01:45 Indication: Diabetic foot w/ cellulitis Weight in k.4 kg Adjusted body weight in K.86 kg [place] body weight in K.5 kg Obesity Dosing Indication % IBW: 124% Serum Creatinine - Last 168 Hours 10/29/23 10/30/23 20:31 04:46 Creatinine 0.87 0.91 Estimated CrCl and GFR - Last 168 Hours 10/29/23 10/30/23 20: 04:46 Estim Creat Clear Calc 118.5 113.3 Estimated GFR > 60 > 60 Vancomycin Loading Dose: 2000 mg Current Vancomycin Dosing Regimen: 1250 mg Q12H Date and Time for next Vancomycin Level to be drawn: 10/30 @ 1300 Pharmacist Comments on Vancomycin Plan: Patient receive an adequate vancomycin load dose 2000 mg on 10/29 @ 0305. Maintenance dose vancomycin 1250 mg Q12H is schedule to start 10/29 @ 1500. Predicted AUC 518 with a trough of 16.6 level will be drawn prior to the 4th dose pharmacy will monitor renal function daily Elise Boucehr PharmD Vancomycin dosing will take advantage of [employer] as a clinical decision support tool that uses Bayesian modeling to calculate individual patient's pharmacokinetic parameters and forecast the patient's drug concentration time course with the target goal AUC 24 range of 400 - 600 mg/L/hr.
--- NOTE | 2023-10-30 07:47 | MHC.EDTECH ---
checked POC glucose and reported to the nurse. patient given breakfast and urinal was emptied. patient eating at this time.
[2023-10-30] MEDS: cefEPime HCl 2 GM in 0.9 % Sodium Chloride 50 ML IV ×3 (08:10→23:05)
[2023-10-30] MEDS: 0.9 % Sodium Chloride Flush 3 ML SYRINGE IVFLUSH ×2 (08:11→20:52)
[2023-10-30] MEDS: Insulin Lispro 100 UNIT/ML 3 ML VIAL SUBCUT ×4 (08:11→20:50)
[2023-10-30 08:13] LABS: Glucose, Whole Blood 284 mg/dL (60-115)
--- NOTE | 2023-10-30 08:23 | PM.EVENT ---
Event Note Date of Service: 10/30/23 Event Note: Seen and examined this morning Follow-up for diabetic foot wound Patient reports having a callus on his right heel a week or two ago he noticed that it opened up and most recently he has been having foul smelling drainage and increasing pain. right heel ulcer, no significant surrounding erythema. This is a 58-year-old male with pertinent history of insulin-dependent diabetes mellitus with neuropathy, hypertension, mixed hyperlipidemia, peripheral vascular disease status post left BKA and right toe amputations presents to the emergency department for evaluation of foot pain. #. Right foot diabetic foot infected ulcer with purulent cellulitis: continue IV cefepime and vancomycin. No sepsis. Consulting Wound Care ESR, CRP pending MRI pending consider surgical evaluation #. Insulin-dependent diabetes mellitus with hyperglycemia and neuropathy: Initiating basal plus insulin regimen. Continue Lyrica #. Hypertension: Continue home antihypertensives #. Mixed hyperlipidemia: On statin Med rec pending DVT prophylaxis: Lovenox Full code Time Spent With Patient Time: Total time managing care of this patient today ____ minutes.
[2023-10-30] MEDS: oxyCODONE HCl Immed Release 5 MG TABLET PO (08:47)
--- NOTE | 2023-10-30 09:06 | PHA.MEDREC ---
Addendum entered by Tom Salter RPh 10/30/23 09:24: Med rec was reviewed by Jim. Original Note: Pharmacy Consult ? Medication Reconciliation Pharmacy has completed the medication reconciliation. Spoke with patient to confirm medications. He states his carvedilol was decreased to once daily. He confirmed oxycodone prn. He confirmed his insulin: Basaglar 36u at bedtime and humalog is sliding scale TID. He last took his medications yesterday.
[2023-10-30 09:37] LABS: C Reactive Protein 0.18 mg/dL (< or = 0.50)
[2023-10-30 09:53] LABS: Erythrocyte Sedimentation Rate 4 MM/HR (0-15)
[2023-10-30] MEDS: amLODIPine Besylate 10 MG TABLET PO (10:00)
[2023-10-30] MEDS: Atorvastatin Calcium 20 MG TABLET PO (10:00)
[2023-10-30] MEDS: carvediloL 6.25 MG TABLET PO (10:00)
[2023-10-30] MEDS: gadobutroL 10 ML VIAL IVPUSH (12:16)
[2023-10-30 12:26] LABS: Glucose, Whole Blood 275 mg/dL (60-115)
[2023-10-30] MEDS: oxyCODONE HCl Immed Release 5 MG TABLET 10 MG PO ×2 (14:08→20:48)
[2023-10-30] MEDS: vancomycin HCL 1,250 MG in 0.9 % Sodium Chloride 250 ML 166.67 MG IV (14:09)
[2023-10-30 16:14] LABS: Glucose, Whole Blood 273 mg/dL (60-115)
[2023-10-30 20:13] LABS: Glucose, Whole Blood 251 mg/dL (60-115)
[2023-10-30] MEDS: Insulin Glargine,Hum.rec.anlog 100 UNIT/ML 10 ML VIAL 30 UNIT SUBCUT (20:50)
[2023-10-31] MEDS: Enoxaparin Sodium 40 MG/0.4 ML SYRINGE SUBCUT (03:06)
[2023-10-31] MEDS: vancomycin HCL 1,250 MG in 0.9 % Sodium Chloride 250 ML 166.67 MG IV (03:12)
[2023-10-31] MEDS: oxyCODONE HCl Immed Release 5 MG TABLET 10 MG PO ×3 (03:15→18:48)
[2023-10-31 06:19] LABS: Glucose, Whole Blood 59 mg/dL (60-115)
[2023-10-31] MEDS: Glucose Gel 15 GM GEL..GRAM. PO (06:25)
[2023-10-31] MEDS: Dextrose 10 % 250 ML 750 ML IV (06:40)
[2023-10-31 06:42] LABS: Glucose, Whole Blood 58 mg/dL (60-115)
--- NOTE | 2023-10-31 06:49 | PC.NURSE ---
Approximately at 06:15, pt c/o of shakiness, A&Ox4, POC 59. MD Hutchins was notified of the critical POC. 4 OZ of OJ, kofi crackers, and PRN glucose gel given to pt. 15 minutes later, rechecked POC 58. MD Hutchins notified of the rechecked POC. PRN IV dextrose was given to pt with good effect. Rechecked POC after PRN IV dextrose was 201 @07:05. Report given to the gunnar MARI RN Maranda. Will continue to monitor pt's POC. Plan of care ongoing.
[2023-10-31 07:03] LABS: Estimated Glomerular Filt Rate > 60
[2023-10-31 07:04] LABS: Glucose, Whole Blood 201 mg/dL (60-115)
--- NOTE | 2023-10-31 07:19 | P.PNIM_ITS ---
Subjective Subjective Date of Service: 10/31/23 Interval History: Seen in follow up for purulent cellulitis/diabetic foot ulcer Interval history: Reports 10/10 pain with weight bearing, 7/10 pain at rest. No fevers. No other complaints Review of Systems Review of Systems: Yes all other systems are reviewed and are negative Physical Exam 2 Vital Signs: Vital Signs: Last Vital Signs Temp 97.1 F 10/30/23 23:53 Pulse 67 10/30/23 23:53 Resp 18 10/30/23 23:53 BP 133/74 10/30/23 23:53 Pulse Ox 96 10/30/23 23:53 O2 Del Method Room Air 10/30/23 23:53 BMI result Body Mass Index 29.1 Constitutional - Awake and Alert, No apparent distress Eyes - PERRLA, EOMI Cardiovascular - S1S2, RRR, No edema Respiratory - Normal lung expansion, Normal respiratory effort, No respiratory distress, CTA bilaterally Gastrointestinal - NT / ND; +BS; No rebound or guarding Extremities - no calf tenderness bilaterally, no swelling Skin - Warm/Dry. R heel with callous and shallow dry ulceration without any purulent drainage Neurological - Alert & oriented x3 Psychological - Appropriate affect Objective Data Active Medications Acetaminophen (Acetaminophen 325 Mg Tablet) 650 mg PO Q6H PRN PRN Reason: Pain, Mild (Pain Scale 1-3), fever or headache Amlodipine Besylate (Amlodipine Besylate 10 Mg Tablet) 10 mg PO DAILY [facility]; Protocol Last Admin: 10/30/23 10:00 Dose: 10 mg Documented By: JACLYN Atorvastatin Calcium (Atorvastatin Calcium 20 Mg Tablet) 20 mg PO DAILY [facility] Last Admin: 10/30/23 10:00 Dose: 20 mg Documented By: JACLYN Calcium Carbonate (Calcium Carbonate 750 Mg Tab.Chew) 750 mg PO Q4H PRN PRN Reason: Heartburn Carvedilol (Carvedilol 6.25 Mg Tablet) 6.25 mg PO DAILY [facility]; Protocol Last Admin: 10/30/23 10:00 Dose: 6.25 mg Documented By: JACLYN Enoxaparin Sodium (Enoxaparin Sodium 40 Mg/0.4 Ml Syringe) 40 mg SUBCUT Q24H [facility] Last Admin: 10/31/23 03:06 Dose: 40 mg Documented By: MANOLO Glucose (Glucose Gel 15 Gm Gel..Gram.) 15 gm PO Q15M PRN; Protocol PRN Reason: per Hypoglycemia Standing Ord. Last Admin: 10/31/23 06:25 Dose: 15 gm Documented By: MANOLO Dextrose (D10) 250 mls @ 750 mls/hr IV Q15M PRN; Protocol PRN Reason: per Hypoglycemia Standing Ord. Last Admin: 10/31/23 06:40 Dose: 750 mls/hr Documented By: MANOLO Cefepime HCl 2 gm/ Sodium (Chloride) 50 mls @ 100 mls/hr IV Q8H [facility] Last Infusion: 10/30/23 23:38 Dose: Infused Documented By: MANOLO Vancomycin HCl 1,250 mg/ (Sodium Chloride) 250 mls @ 166.667 mls/hr IV Q12H [facility] Last Infusion: 10/31/23 04:43 Dose: Infused Documented By: MANOLO Insulin Glargine (Insulin Glargine,Hum.Rec.Anlog 100 Unit/Ml 10 Ml Vial) 30 unit SUBCUT BEDTIME [facility] Last Admin: 10/30/23 20:50 Dose: 30 unit Documented By: MANOLO Insulin Human Lispro (Insulin Lispro 100 Unit/Ml 3 Ml Vial) 0 unit SUBCUT QIDACHS [facility]; Protocol Last Admin: 10/30/23 20:50 Dose: 6 unit Documented By: MANOLO Magnesium Hydroxide (Milk Of Magnesia 30 Ml Oral.Susp) 30 ml PO DAILY PRN PRN Reason: Constipation Melatonin (Melatonin 3 Mg Tablet) 6 mg PO BEDTIME PRN PRN Reason: Insomnia Ondansetron HCl (Ondansetron Hcl 4 Mg/2 Ml Vial) 4 mg IVPUSH Q8H PRN PRN Reason: Nausea and Vomiting Oxycodone HCl (Oxycodone Hcl Immed Release 5 Mg Tablet) 10 mg PO Q6H PRN PRN Reason: pain (scale score 7-10) Last Admin: 10/31/23 03:15 Dose: 10 mg Documented By: MANOLO Pharmacy Consult (Consult Rx Vancomycin Dosing) 1 each MISCELLANE DAILY PRN PRN Reason: Consult order Sodium Chloride (0.9 % Sodium Chloride Flush 3 Ml Syringe) 3 ml IVFLUSH QSHIFT [facility] Last Admin: 10/30/23 20:52 Dose: 3 ml Documented By: MANOLO Labs 10/30/23 04:46 10/31/23 05:38 Labs: Laboratory Results - last 24 hr 10/30/23 10/30/23 10/30/23 04:46 07:36 12:21 ESR 4 Hold Purple Top Estim Creat Clear Calc Estimated GFR POC Glucose 284 H 275 H C-Reactive Protein 0.18 10/30/23 10/30/23 10/31/23 16:11 20:09 05:38 ESR Hold Purple Top SEE NOTE Estim Creat Clear Calc 134.0 Estimated GFR > 60 POC Glucose 273 H 251 H C-Reactive Protein 10/31/23 10/31/23 10/31/23 06:14 06:37 06:59 ESR Hold Purple Top Estim Creat Clear Calc Estimated GFR POC Glucose 59 L* 58 L* 201 H C-Reactive Protein Assessment and Plan (1) Diabetic foot ulcer: Status: Acute (2) Cellulitis: Status: Acute Plan 58-year-old male with pertinent history of insulin-dependent diabetes mellitus with neuropathy, hypertension, mixed hyperlipidemia, peripheral vascular disease status post left BKA and right toe amputations presents to the emergency department for evaluation of foot pain. Right foot diabetic foot infected ulcer with purulent cellulitis: continue IV cefepime and vancomycin. No sepsis. Consulting Wound Care and general surgery ESR, CRP WNL MRI negative for osteo Insulin-dependent diabetes mellitus with hyperglycemia and neuropathy poc gluose, diabetic diet admelog on ss check hgb a1c Hypertension Continue home antihypertensives Mixed hyperlipidemia statin DVT prophylaxis: Lovenox Full code pt requires ongoing inpt stay due to infected diabetic foot ulcer requiring iv abx and expert consultation Quality Stroke Does the patient have a stroke diagnosis?: No VTE Prior VTE?: No VTE Risk Level:: Medical - moderate - high VTE Device Contraindication: Treatment Not Indicated VTE Drug Contraindication: N/A - Med Ordered
[2023-10-31 07:48] LABS: Glucose, Whole Blood 156 mg/dL (60-115)
[2023-10-31 08:00] VITALS: BP 129/61; PULSE 62; RESP 12; TEMP 36.7; O2SAT 93
[2023-10-31] MEDS: cefEPime HCl 2 GM in 0.9 % Sodium Chloride 50 ML IV ×3 (08:50→22:59)
[2023-10-31] MEDS: Atorvastatin Calcium 20 MG TABLET PO (08:50)
[2023-10-31] MEDS: carvediloL 6.25 MG TABLET PO (08:50)
[2023-10-31] MEDS: amLODIPine Besylate 10 MG TABLET PO (08:51)
[2023-10-31] MEDS: 0.9 % Sodium Chloride Flush 3 ML SYRINGE IVFLUSH ×3 (08:51→23:00)
[2023-10-31 11:13] LABS: Glucose, Whole Blood 210 mg/dL (60-115)
[2023-10-31] MEDS: Insulin Lispro 100 UNIT/ML 3 ML VIAL SUBCUT ×2 (12:22→20:29)
[2023-10-31 13:24] LABS: Estimated Average Glucose 169 mg/dL; Hemoglobin A1c % 7.5 % (<6.0)
[2023-10-31 13:27] LABS: Vancomycin Trough 11.5 mcg/mL (10.0-20.0)
--- NOTE | 2023-10-31 13:37 | HE.PHANOTE ---
Vancomyin Dosing Level 11.5 today however AUC is subtherapeutic. Will increase dose to 1500 mg Q12H. New predicted AUC 478 with a trough of 13.9. Next level schedule for 10/31 @ 1300. Pharmacy will continue to monitor renal function. Elise Boucher, PharmD
--- NOTE | 2023-10-31 13:47 | P.CONGS_ITS ---
History of Present Illness Consult details Consult date: 10/31/23 Narrative: 58-year-old male with multiple medical problems including diabetes and peripheral neuropathy, history of foot ulcers, with a left BKA and right big toe amputation in the past, admitted yesterday because of right foot pain . He has had a callus on the plantar aspect of the heel for a long time. However, for the past week, he says that this seemed to have developed an ulcer with subsequent pain. He says that the pain has been worsening and he has been noticing some foul-smelling discharge. He said that he has an able to put weight on the foot anymore. He has had no fever or chills. Review of Systems 2 Constitutional: Constitutional: Denies chills and Denies fever(s) Cardiovascular: Cardiovascular: Denies chest pain, Denies dyspnea and Denies dyspnea on exertion Respiratory: Respiratory: Denies cough, Denies dyspnea and Denies dyspnea on exertion Gastrointestinal: Gastrointestinal: Denies hematochezia and Denies change in bowel habits Genitourinary: Genitourinary: Denies hematuria and Denies difficulty urinating Musculoskeletal: Musculoskeletal: Denies back pain and Denies limited range of motion Neurologic: Denies focal weakness and Denies convulsions Psychiatric: Psychiatric: Denies depression and Denies mood swings PMFSH Past Medical History Medical History Diabetes mellitus Peripheral neuropathy Hypertension Osteomyelitis of left foot Hypercholesterolemia Family History Family History Father History of hypertension Mother History of diabetes mellitus Surgical History Surgical History Status post cryoablation History of amputation of both great toes Social History Social History Household Members: Family Household Members Other:: Uncle Housing: House Do you presently have visiting nurse or other home services: No Alcohol intake: current Alcohol intake frequency: 3 or more drinks per day Alcohol type: beer Patient Tobacco Use Status: Former Tobacco user Meds Allergies Allergy/AdvReac Type Severity Reaction Status Date / Time acetaminophen Allergy Mild Rash Verified 10/29/23 20:21 Active Medications: Current Medications Acetaminophen (Acetaminophen 325 Mg Tablet) 650 mg PO Q6H PRN PRN Reason: Pain, Mild (Pain Scale 1-3), fever or headache Amlodipine Besylate (Amlodipine Besylate 10 Mg Tablet) 10 mg PO DAILY [facility]; Protocol Last Admin: 10/31/23 08:51 Dose: 10 mg Atorvastatin Calcium (Atorvastatin Calcium 20 Mg Tablet) 20 mg PO DAILY [facility] Last Admin: 10/31/23 08:50 Dose: 20 mg Calcium Carbonate (Calcium Carbonate 750 Mg Tab.Chew) 750 mg PO Q4H PRN PRN Reason: Heartburn Carvedilol (Carvedilol 6.25 Mg Tablet) 6.25 mg PO DAILY [facility]; Protocol Last Admin: 10/31/23 08:50 Dose: 6.25 mg Enoxaparin Sodium (Enoxaparin Sodium 40 Mg/0.4 Ml Syringe) 40 mg SUBCUT Q24H [facility] Last Admin: 10/31/23 03:06 Dose: 40 mg Glucose (Glucose Gel 15 Gm Gel..Gram.) 15 gm PO Q15M PRN; Protocol PRN Reason: per Hypoglycemia Standing Ord. Last Admin: 10/31/23 06:25 Dose: 15 gm Dextrose (D10) 250 mls @ 750 mls/hr IV Q15M PRN; Protocol PRN Reason: per Hypoglycemia Standing Ord. Last Infusion: 10/31/23 07:19 Dose: Infused Cefepime HCl 2 gm/ Sodium (Chloride) 50 mls @ 100 mls/hr IV Q8H [facility] Last Infusion: 10/31/23 09:22 Dose: Infused Vancomycin HCl 1,500 mg/ (Sodium Chloride) 500 mls @ 333.333 mls/hr IV Q12H [facility] Insulin Glargine (Insulin Glargine,Hum.Rec.Anlog 100 Unit/Ml 10 Ml Vial) 30 unit SUBCUT BEDTIME [facility] Last Admin: 10/30/23 20:50 Dose: 30 unit Insulin Human Lispro (Insulin Lispro 100 Unit/Ml 3 Ml Vial) 0 unit SUBCUT QIDACHS [facility]; Protocol Last Admin: 10/31/23 12:22 Dose: 4 unit Magnesium Hydroxide (Milk Of Magnesia 30 Ml Oral.Susp) 30 ml PO DAILY PRN PRN Reason: Constipation Melatonin (Melatonin 3 Mg Tablet) 6 mg PO BEDTIME PRN PRN Reason: Insomnia Ondansetron HCl (Ondansetron Hcl 4 Mg/2 Ml Vial) 4 mg IVPUSH Q8H PRN PRN Reason: Nausea and Vomiting Oxycodone HCl (Oxycodone Hcl Immed Release 5 Mg Tablet) 10 mg PO Q6H PRN PRN Reason: pain (scale score 7-10) Last Admin: 10/31/23 12:25 Dose: 10 mg Pharmacy Consult (Consult Rx Vancomycin Dosing) 1 each MISCELLANE DAILY PRN PRN Reason: Consult order Sodium Chloride (0.9 % Sodium Chloride Flush 3 Ml Syringe) 3 ml IVFLUSH [facility] Last Admin: 10/31/23 08:51 Dose: 3 ml Home Medications ?Medication ?Instructions ?Recorded ?Confirmed ?Last Taken ?Type atorvastatin 20 mg tablet 20 mg PO DAILY 11/30/19 10/30/23 10/29/23 History blood sugar diagnostic (FreeStyle #10 ea 11/30/19 10/30/23 Unknown History Lite Strips) insulin lispro 100 unit/mL See Protocol subcut TIDAC 11/30/19 10/30/23 10/29/23 History subcutaneous pen (Humalog KwikPen (U-100) Insulin) lancets 28 gauge (FreeStyle #100 ea 11/30/19 10/30/23 Unknown History Lancets) pen needle, diabetic 32 gauge x #50 ea 11/30/19 10/30/23 Unknown History (BD Ultra-Fine Sarah Pen Needle) amlodipine 10 mg tablet 10 mg PO DAILY 04/15/21 10/30/23 10/29/23 History carvedilol 6.25 mg tablet 6.25 mg PO DAILY 04/15/21 10/30/23 10/29/23 History lancets 33 gauge (TRUEplus Lancets) #100 ea 04/15/21 10/30/23 Unknown History lisinopril 40 mg tablet 40 mg PO DAILY 04/15/21 10/30/23 10/29/23 History hydrochlorothiazide 12.5 mg capsule 12.5 mg PO DAILY 10/30/23 10/30/23 10/29/23 History insulin glargine 100 unit/mL (3 36 unit subcut BEDTIME 10/30/23 10/30/23 10/29/23 History mL) subcutaneous pen (Basaglar KwikPen U-100 Insulin) loratadine 10 mg tablet (Claritin) 10 mg PO DAILY PRN Allergy Symptoms 10/30/23 10/30/23 Unknown History Physical Exam 2 Vital Signs: Vital Signs: Last Vital Signs Temp 98.1 F 10/31/23 08:00 Pulse 62 10/31/23 08:00 Resp 12 10/31/23 08:00 BP 129/61 10/31/23 08:00 Pulse Ox 93 10/31/23 08:00 O2 Del Method Room Air 10/31/23 08:00 BMI result Body Mass Index 29.1 Const: Other: Looks well General: comfortable and no acute distress Orientation/consciousness: p atient oriented x3 Neck: Neck: Yes no lymphadenopathy Resp: Auscultation: clear to auscultation bilaterally Cardio: Rhythm: regular rhythm GI: Palpation (GI): Soft to palpation, nontender and no guarding Neuro: General: patient oriented x3 Extrem: Other: BKA on the left, well healed Right foot with a an ulcer on the plantar aspect towards the heel, about 3x 3 cm, with surrounding thick callus as well as coating of eschar Right big toe amputation site well healed Results Labs 10/30/23 04:46 10/31/23 05:38 Labs: Abnormal lab results 10/30/23 10/30/23 10/31/23 Range/Units 16:11 20:09 06:14 POC Glucose 273 H 251 H 59 L* (60-115) mg/dL Hemoglobin A1c % (<6.0) % 10/31/23 10/31/23 10/31/23 Range/Units 06:37 06:59 07:45 POC Glucose 58 L* 201 H 156 H (60-115) mg/dL Hemoglobin A1c % (<6.0) % 10/31/23 10/31/23 Range/Units 10:57 13:06 POC Glucose 210 H (60-115) mg/dL Hemoglobin A1c % 7.5 H (<6.0) % BMP 10/31/23 05:38 Creatinine 0.77 All other labs normal. Assessment and Plan (1) Diabetic foot ulcer: Status: Acute He has this plantar ulcer towards the heel as described above. There was note of thick callus along with eschar overlying the ulcer I therefore proceeded to do sharp excisional debridement using fine scissors to remove the eschar covering the ulcer as well as the surrounding very thick callus tissue. I applied wet-to-dry dressing thereafter and wrapped the foot with Kerlix I would recommend continuing with wet-to-dry dressings every day. I instructed him to avoid putting weight on this area of the foot His imaging studies including an MRI do not reveal osteomyelitis. He does not appear septic looking at this time. Procedures Date of Service Date of Service: 10/31/23
[2023-10-31] MEDS: vancomycin HCL 1,500 MG in 0.9 % Sodium Chloride 500 ML 333.33 MG IV (14:14)
--- NOTE | 2023-10-31 15:02 | PM.PROC ---
Brief Operative Note Date of procedure: 10/31/23 Pre-op diagnosis: Ulcer with eschar and thick callus Post-op diagnosis: same Procedure: BEDSIDE PROCEDURE The area of the ulcer on the plantar aspect towards the heel was prepped and draped. I did not use any lidocaine. There was note of an eschar covering the ulcer along with surrounding very thick callus I proceeded to do sharp excisional debridement of the full-thickness of the eschar and the surrounding thick callus. The area debrided was about 3 x 3 cm. I then applied wet-to-dry dressings and wrapped the foot with Kerlix roll. He tolerated procedure well. There were no immediate complications. Anesthesia: none
[2023-10-31 16:00] VITALS: BP 142/77; PULSE 63; RESP 14; TEMP 36.3; O2SAT 96
[2023-10-31 16:34] LABS: Glucose, Whole Blood 125 mg/dL (60-115)
[2023-10-31 20:16] LABS: Glucose, Whole Blood 267 mg/dL (60-115)
[2023-10-31] MEDS: Insulin Glargine,Hum.rec.anlog 100 UNIT/ML 10 ML VIAL 30 UNIT SUBCUT (20:29)
[2023-10-31 23:29] VITALS: BP 121/65; PULSE 66; RESP 16; TEMP 36.1; O2SAT 93
[2023-11-01] MEDS: vancomycin HCL 1,500 MG in 0.9 % Sodium Chloride 500 ML 333.33 MG IV ×2 (02:57→14:56)
[2023-11-01] MEDS: Milk of Magnesia 30 ML ORAL.SUSP PO (03:07)
--- NOTE | 2023-11-01 03:09 | PC.NURSE ---
dressing to right foot changed at 0310 per pt's request.
[2023-11-01 04:03] LABS: Glucose, Whole Blood 136 mg/dL (60-115)
[2023-11-01] MEDS: diphenhydrAMINE HCL 25 MG CAPSULE PO ×2 (04:16→20:42)
[2023-11-01] MEDS: oxyCODONE HCl Immed Release 5 MG TABLET 10 MG PO ×3 (04:17→16:30)
--- NOTE | 2023-11-01 04:25 | PC.NURSE ---
pt c/o constipation, stating that he has not had a BM in 4 days, prn milk of mag given. Also, while IV vanco was running pt was c/o itching at the IV site. IV stopped, new IV site placed and 1 x dose of po benadryl given.
[2023-11-01 06:35] LABS: Estimated Glomerular Filt Rate > 60
[2023-11-01] MEDS: cefEPime HCl 2 GM in 0.9 % Sodium Chloride 50 ML IV ×3 (07:53→23:24)
[2023-11-01 07:57] VITALS: BP 123/65; PULSE 70; RESP 18; TEMP 36.3; O2SAT 94
[2023-11-01] MEDS: carvediloL 6.25 MG TABLET PO (07:58)
[2023-11-01] MEDS: Atorvastatin Calcium 20 MG TABLET PO (07:58)
[2023-11-01] MEDS: amLODIPine Besylate 10 MG TABLET PO (07:59)
[2023-11-01] MEDS: 0.9 % Sodium Chloride Flush 3 ML SYRINGE IVFLUSH ×3 (08:00→23:25)
[2023-11-01 08:13] LABS: Glucose, Whole Blood 129 mg/dL (60-115)
--- NOTE | 2023-11-01 08:47 | PM.PNGS ---
Subjective Subjective Date of Service: 11/01/23 Interval history: Patient reporting right foot pain but generally improved with current pain medication. Physical Exam Vital Signs: Vital Signs: Last Vital Signs Temp 97.4 F 11/01/23 07:57 Pulse 70 11/01/23 07:57 Resp 18 11/01/23 07:57 BP 123/65 11/01/23 07:57 Pulse Ox 94 11/01/23 07:57 O2 Del Method Room Air 11/01/23 07:57 BMI result Body Mass Index 29.1 Const: Other: Looks well General: comfortable and no acute distress Orientation/consciousness: patient oriented x3 Neuro: General: patient oriented x3 Extrem: Other: BKA on the left, well healed Right foot with a an ulcer on the plantar aspect towards the heel, about 3x 3 cm, recently debrided with intact dressing. Objective Data Active Medications Acetaminophen (Acetaminophen 325 Mg Tablet) 650 mg PO Q6H PRN PRN Reason: Pain, Mild (Pain Scale 1-3), fever or headache Amlodipine Besylate (Amlodipine Besylate 10 Mg Tablet) 10 mg PO DAILY [facility]; Protocol Last Admin: 11/01/23 07:59 Dose: 10 mg Documented By: KELLY Atorvastatin Calcium (Atorvastatin Calcium 20 Mg Tablet) 20 mg PO DAILY [facility] Last Admin: 11/01/23 07:58 Dose: 20 mg Documented By: KELLY Calcium Carbonate (Calcium Carbonate 750 Mg Tab.Chew) 750 mg PO Q4H PRN PRN Reason: Heartburn Carvedilol (Carvedilol 6.25 Mg Tablet) 6.25 mg PO DAILY [facility]; Protocol Last Admin: 11/01/23 07:58 Dose: 6.25 mg Documented By: KELLY Enoxaparin Sodium (Enoxaparin Sodium 40 Mg/0.4 Ml Syringe) 40 mg SUBCUT Q24H [facility] Last Admin: 11/01/23 02:57 Dose: Not Given Documented By: SHERI Non-Admin Reason: Patient Refused Glucose (Glucose Gel 15 Gm Gel..Gram.) 15 gm PO Q15M PRN; Protocol PRN Reason: per Hypoglycemia Standing Ord. Last Admin: 10/31/23 06:25 Dose: 15 gm Documented By: MANOLO Dextrose (D10) 250 mls @ 750 mls/hr IV Q15M PRN; Protocol PRN Reason: per Hypoglycemia Standing Ord. Last Infusion: 10/31/23 07:19 Dose: Infused Documented By: MANOLO Cefepime HCl 2 gm/ Sodium (Chloride) 50 mls @ 100 mls/hr IV Q8H [facility] Last Admin: 11/01/23 07:53 Dose: 100 mls/hr Documented By: KELLY Vancomycin HCl 1,500 mg/ (Sodium Chloride) 500 mls @ 333.333 mls/hr IV Q12H [facility] Last Infusion: 11/01/23 04:39 Dose: Infused Documented By: SHERI Insulin Glargine (Insulin Glargine,Hum.Rec.Anlog 100 Unit/Ml 10 Ml Vial) 30 unit SUBCUT BEDTIME [facility] Last Admin: 10/31/23 20:29 Dose: 30 unit Documented By: SHERI Insulin Human Lispro (Insulin Lispro 100 Unit/Ml 3 Ml Vial) 0 unit SUBCUT QIDACHS [facility]; Protocol Last Admin: 11/01/23 08:00 Dose: Not Given Documented By: KELLY Non-Admin Reason: No Insulin Coverage Magnesium Hydroxide (Milk Of Magnesia 30 Ml Oral.Susp) 30 ml PO DAILY PRN PRN Reason: Constipation Last Admin: 11/01/23 03:07 Dose: 30 ml Documented By: SHERI Melatonin (Melatonin 3 Mg Tablet) 6 mg PO BEDTIME PRN PRN Reason: Insomnia Ondansetron HCl (Ondansetron Hcl 4 Mg/2 Ml Vial) 4 mg IVPUSH Q8H PRN PRN Reason: Nausea and Vomiting Oxycodone HCl (Oxycodone Hcl Immed Release 5 Mg Tablet) 10 mg PO Q6H PRN PRN Reason: pain (scale score 7-10) Last Admin: 11/01/23 04:17 Dose: 10 mg Documented By: SHERI Pharmacy Consult (Consult Rx Vancomycin Dosing) 1 each MISCELLANE DAILY PRN PRN Reason: Consult order Sodium Chloride (0.9 % Sodium Chloride Flush 3 Ml Syringe) 3 ml IVFLUSH QSHIFT [facility] Last Admin: 11/01/23 08:00 Dose: 3 ml Documented By: KELLY Labs 10/30/23 04:46 11/01/23 05:50 Labs: Laboratory Results - last 24 hr 10/31/23 10/31/23 10/31/23 10:57 13:06 16:25 Estim Creat Clear Calc Estimated GFR POC Glucose 210 H 125 H Estimat Average Glucose 169 Hemoglobin A1c % 7.5 H Vancomycin Trough 11.5 10/31/23 11/01/23 11/01/23 20:09 03:58 05:50 Estim Creat Clear Calc 129.0 Estimated GFR > 60 POC Glucose 267 H 136 H Estimat Average Glucose Hemoglobin A1c % Vancomycin Trough 11/01/23 07:55 Estim Creat Clear Calc Estimated GFR POC Glucose 129 H Estimat Average Glucose Hemoglobin A1c % Vancomycin Trough Microbiology Microbiology Results: Microbiology 10/29/23 20:30 Blood Culture - Preliminary Blood - Venous No growth after 24 hours. Procedures Date of Service Date of Service: 11/01/23 Progress Note: A&P Assessment and plan (1) Diabetic foot ulcer: Status: Acute (2) Cellulitis: Status: Acute Plan 58-year-old male patient with an open wound of the right heel and a previous history of left BKA. MRI negative for osteomyelitis. Continue antibiotics and local wound care. Patient may benefit from noninvasive vascular studies, last performed on right leg in 2017 Time Spent With Patient Time: Total time managing care of this patient today ____ minutes. Quality Stroke Does the patient have a stroke diagnosis?: No VTE Prior VTE?: No VTE Risk Level:: Medical - moderate - high VTE Device Contraindication: Treatment Not Indicated VTE Drug Contraindication: N/A - Med Ordered
--- NOTE | 2023-11-01 10:02 | HO.PM.IMPN ---
Subjective Subjective Date of Service: 11/01/23 Interval History: No acute issues overnight. Pain control adequate Review of Systems Denies chest pain Denies shortness of breath Denies nausea vomiting diarrhea Denies fever chills Physical Exam Vital Signs: Vital Signs: Last Vital Signs Temp 97.4 F 11/01/23 07:57 Pulse 70 11/01/23 07:57 Resp 18 11/01/23 07:57 BP 123/65 11/01/23 07:57 Pulse Ox 94 11/01/23 07:57 O2 Del Method Room Air 11/01/23 07:57 BMI result Body Mass Index 29.1 Const: Other: Awake alert oriented x3 no acute distress Cardio: Other: No S4; positive S1-S2; no S3 murmurs rubs or gallops GI: Other: Soft nontender nondistended normoactive bowel sounds : Other: Soft nontender nondistended normoactive bowel sounds Extrem: Other: Left BKA; right heel dressing clean dry and intact Objective Data Active Medications Acetaminophen (Acetaminophen 325 Mg Tablet) 650 mg PO Q6H PRN PRN Reason: Pain, Mild (Pain Scale 1-3), fever or headache Amlodipine Besylate (Amlodipine Besylate 10 Mg Tablet) 10 mg PO DAILY [facility]; Protocol Last Admin: 11/01/23 07:59 Dose: 10 mg Documented By: KELLY Atorvastatin Calcium (Atorvastatin Calcium 20 Mg Tablet) 20 mg PO DAILY [facility] Last Admin: 11/01/23 07:58 Dose: 20 mg Documented By: KELLY Calcium Carbonate (Calcium Carbonate 750 Mg Tab.Chew) 750 mg PO Q4H PRN PRN Reason: Heartburn Carvedilol (Carvedilol 6.25 Mg Tablet) 6.25 mg PO DAILY [facility]; Protocol Last Admin: 11/01/23 07:58 Dose: 6.25 mg Documented By: KELLY Enoxaparin Sodium (Enoxaparin Sodium 40 Mg/0.4 Ml Syringe) 40 mg SUBCUT Q24H [facility] Last Admin: 11/01/23 02:57 Dose: Not Given Documented By: SHERI Non-Admin Reason: Patient Refused Glucose (Glucose Gel 15 Gm Gel..Gram.) 15 gm PO Q15M PRN; Protocol PRN Reason: per Hypoglycemia Standing Ord. Last Admin: 10/31/23 06:25 Dose: 15 gm Documented By: MANOLO Dextrose (D10) 250 mls @ 750 mls/hr IV Q15M PRN; Protocol PRN Reason: per Hypoglycemia Standing Ord. Last Infusion: 10/31/23 07:19 Dose: Infused Documented By: MANOLO Cefepime HCl 2 gm/ Sodium (Chloride) 50 mls @ 100 mls/hr IV Q8H [facility] Last Infusion: 11/01/23 08:49 Dose: Infused Documented By: KELLY Vancomycin HCl 1,500 mg/ (Sodium Chloride) 500 mls @ 333.333 mls/hr IV Q12H [facility] Last Infusion: 11/01/23 04:39 Dose: Infused Documented By: SHERI Insulin Glargine (Insulin Glargine,Hum.Rec.Anlog 100 Unit/Ml 10 Ml Vial) 30 unit SUBCUT BEDTIME [facility] Last Admin: 10/31/23 20:29 Dose: 30 unit Documented By: SHERI Insulin Human Lispro (Insulin Lispro 100 Unit/Ml 3 Ml Vial) 0 unit SUBCUT QIDACHS [facility]; Protocol Last Admin: 11/01/23 08:00 Dose: Not Given Documented By: KELLY Non-Admin Reason: No Insulin Coverage Magnesium Hydroxide (Milk Of Magnesia 30 Ml Oral.Susp) 30 ml PO DAILY PRN PRN Reason: Constipation Last Admin: 11/01/23 03:07 Dose: 30 ml Documented By: SHERI Melatonin (Melatonin 3 Mg Tablet) 6 mg PO BEDTIME PRN PRN Reason: Insomnia Ondansetron HCl (Ondansetron Hcl 4 Mg/2 Ml Vial) 4 mg IVPUSH Q8H PRN PRN Reason: Nausea and Vomiting Oxycodone HCl (Oxycodone Hcl Immed Release 5 Mg Tablet) 10 mg PO Q6H PRN PRN Reason: pain (scale score 7-10) Last Admin: 11/01/23 04:17 Dose: 10 mg Documented By: SHERI Pharmacy Consult (Consult Rx Vancomycin Dosing) 1 each MISCELLANE DAILY PRN PRN Reason: Consult order Sodium Chloride (0.9 % Sodium Chloride Flush 3 Ml Syringe) [facility] Last Admin: 11/01/23 08:00 Dose: 3 ml Documented By: HO.MOHAMER Labs 10/30/23 04:46 11/01/23 05:50 Labs: Laboratory Results - last 24 hr 10/31/23 10/31/23 10/31/23 10:57 13:06 16:25 Estim Creat Clear Calc Estimated GFR POC Glucose 210 H 125 H Estimat Average Glucose 169 Hemoglobin A1c % 7.5 H Vancomycin Trough 11.5 10/31/23 11/01/23 11/01/23 20:09 03:58 05:50 Estim Creat Clear Calc 129.0 Estimated GFR > 60 POC Glucose 267 H 136 H Estimat Average Glucose Hemoglobin A1c % Vancomycin Trough 11/01/23 07:55 Estim Creat Clear Calc Estimated GFR POC Glucose 129 H Estimat Average Glucose Hemoglobin A1c % Vancomycin Trough Microbiology Microbiology Results: Microbiology 10/29/23 20:30 Blood Culture - Preliminary Blood - Venous No growth after 24 hours. Assessment and Plan (1) Diabetic foot ulcer: Status: Acute (2) Diabetes mellitus: Status: Acute Plan 58-year-old male with pertinent history of insulin-dependent diabetes mellitus with neuropathy, hypertension, mixed hyperlipidemia, peripheral vascular disease status post left BKA and right toe amputations presents to the emergency department for evaluation of foot pain. 1.Right foot diabetic foot infected ulcer -cefepime/vancomycin (3) -continue dressing as per surgery -follow clinically 2.Insulin-dependent diabetes mellitus -acceptable control on current therapies -lispro correctional scale -adjust as indicated 3.Hypertension -acceptable control on current therapies -adjust as indicated Lovenox Full code pt requires ongoing inpt stay due to infected diabetic foot ulcer requiring iv abx and expert consultation Quality Stroke Does the patient have a stroke diagnosis?: No VTE Prior VTE?: No VTE Risk Level:: Medical - moderate - high VTE Device Contraindication: Treatment Not Indicated VTE Drug Contraindication: N/A - Med Ordered
[2023-11-01] MEDS: Calcium Carbonate 750 MG TAB.CHEW PO (10:21)
[2023-11-01 11:19] LABS: Glucose, Whole Blood 245 mg/dL (60-115)
[2023-11-01] MEDS: Insulin Lispro 100 UNIT/ML 3 ML VIAL SUBCUT ×3 (11:51→20:23)
[2023-11-01 13:28] LABS: Vancomycin Random 14.2 mcg/mL (15-20)
--- NOTE | 2023-11-01 13:33 | HE.PHANOTE ---
Vancomycin addendum: level after 2 doses is 14.2, predicted AUC is 483, will continue same regimen and recheck level after 2 more doses
[2023-11-01 15:20] VITALS: BP 131/67; PULSE 61; RESP 16; TEMP 36.2; O2SAT 93
[2023-11-01 16:12] LABS: Glucose, Whole Blood 164 mg/dL (60-115)
--- NOTE | 2023-11-01 16:16 | MHC.CM.PN ---
PT REPORTS HE LIVES WITH HIS UNCLE AND IS INDEPENDENT HE USES A LE PROSTHETIC DUE TO A BKA AND HAS NO SERVICES PT SAYS HE HAS A HCP, COPY REQUESTED PTS PCP IS LISTED [facility], HOWEVER HE REPORTS IT IS [facility] UNABLE TO VERIFY PCP ON THE WEEKEND/HOLIDAY IMM DELIVERED DCP: HOME VIA PRIVATE TRANSPORT
[2023-11-01 20:14] LABS: Glucose, Whole Blood 307 mg/dL (60-115)
[2023-11-01] MEDS: Insulin Glargine,Hum.rec.anlog 100 UNIT/ML 10 ML VIAL 30 UNIT SUBCUT (20:22)
[2023-11-01 23:15] VITALS: BP 149/68; PULSE 63; RESP 18; TEMP 36.2; O2SAT 96
[2023-11-02] MEDS: oxyCODONE HCl Immed Release 5 MG TABLET 10 MG PO ×4 (00:09→21:04)
[2023-11-02] MEDS: vancomycin HCL 1,500 MG in 0.9 % Sodium Chloride 500 ML 333.33 MG IV ×2 (03:04→15:03)
[2023-11-02 06:14] LABS: Creatinine Clr Calc Pharmacy 137.6; Estimated Glomerular Filt Rate > 60
[2023-11-02 07:12] LABS: Glucose, Whole Blood 114 mg/dL (60-115)
[2023-11-02 07:52] VITALS: BP 127/64; PULSE 62; RESP 18; TEMP 37; O2SAT 95
[2023-11-02] MEDS: Calcium Carbonate 750 MG TAB.CHEW PO (08:14)
[2023-11-02] MEDS: carvediloL 6.25 MG TABLET PO (08:15)
[2023-11-02] MEDS: amLODIPine Besylate 10 MG TABLET PO (08:15)
[2023-11-02] MEDS: Atorvastatin Calcium 20 MG TABLET PO (08:15)
[2023-11-02] MEDS: cefEPime HCl 2 GM in 0.9 % Sodium Chloride 50 ML IV ×3 (08:16→23:30)
[2023-11-02] MEDS: 0.9 % Sodium Chloride Flush 3 ML SYRINGE IVFLUSH ×3 (08:17→20:58)
--- NOTE | 2023-11-02 10:48 | HO.PM.IMPN ---
Subjective Subjective Date of Service: 11/02/23 Interval History: No acute issues overnight. Pain control adequate Review of Systems Denies chest pain Denies shortness of breath Denies nausea vomiting diarrhea Denies fever chills Physical Exam Vital Signs: Vital Signs: Last Vital Signs Temp 98.6 F 11/02/23 07:52 Pulse 62 11/02/23 07:52 Resp 18 11/02/23 07:52 BP 127/64 11/02/23 07:52 Pulse Ox 95 11/02/23 07:52 O2 Del Method Room Air 11/02/23 07:52 BMI result Body Mass Index 29.1 Const: Other: Awake alert oriented x3 no acute distress Cardio: Other: No S4; positive S1-S2; no S3 murmurs rubs or gallops GI: Other: Soft nontender nondistended normoactive bowel sounds : Other: Soft nontender nondistended normoactive bowel sounds Extrem: Other: Left BKA; right heel dressing clean dry and intact Objective Data Active Medications Acetaminophen (Acetaminophen 325 Mg Tablet) 650 mg PO Q6H PRN PRN Reason: Pain, Mild (Pain Scale 1-3), fever or headache Amlodipine Besylate (Amlodipine Besylate 10 Mg Tablet) 10 mg PO DAILY [facility]; Protocol Last Admin: 11/02/23 08:15 Dose: 10 mg Documented By: KELLY Atorvastatin Calcium (Atorvastatin Calcium 20 Mg Tablet) 20 mg PO DAILY [facility] Last Admin: 11/02/23 08:15 Dose: 20 mg Documented By: KELLY Calcium Carbonate (Calcium Carbonate 750 Mg Tab.Chew) 750 mg PO Q4H PRN PRN Reason: Heartburn Last Admin: 11/02/23 08:14 Dose: 750 mg Documented By: KELLY Carvedilol (Carvedilol 6.25 Mg Tablet) 6.25 mg PO DAILY [facility]; Protocol Last Admin: 11/02/23 08:15 Dose: 6.25 mg Documented By: KELLY Enoxaparin Sodium (Enoxaparin Sodium 40 Mg/0.4 Ml Syringe) 40 mg SUBCUT Q24H [facility] Last Admin: 11/02/23 02:05 Dose: Not Given Documented By: SHERI Non-Admin Reason: Patient Refused Glucose (Glucose Gel 15 Gm Gel..Gram.) 15 gm PO Q15M PRN; Protocol PRN Reason: per Hypoglycemia Standing Ord. Last Admin: 10/31/23 06:25 Dose: 15 gm Documented By: MANOLO Dextrose (D10) 250 mls @ 750 mls/hr IV Q15M PRN; Protocol PRN Reason: per Hypoglycemia Standing Ord. Last Infusion: 10/31/23 07:19 Dose: Infused Documented By: MANOLO Cefepime HCl 2 gm/ Sodium (Chloride) 50 mls @ 100 mls/hr IV Q8H [facility] Last Infusion: 11/02/23 08:46 Dose: Infused Documented By: KELLY Vancomycin HCl 1,500 mg/ (Sodium Chloride) 500 mls @ 333.333 mls/hr IV Q12H [facility] Last Infusion: 11/02/23 04:37 Dose: Infused Documented By: SHERI Insulin Glargine (Insulin Glargine,Hum.Rec.Anlog 100 Unit/Ml 10 Ml Vial) 30 unit SUBCUT BEDTIME [facility] Last Admin: 11/01/23 20:22 Dose: 30 unit Documented By: SHERI Insulin Human Lispro (Insulin Lispro 100 Unit/Ml 3 Ml Vial) 0 unit SUBCUT QIDACHS [facility]; Protocol Last Admin: 11/02/23 07:27 Dose: Not Given Documented By: KELLY Non-Admin Reason: No Insulin Coverage Magnesium Hydroxide (Milk Of Magnesia 30 Ml Oral.Susp) 30 ml PO DAILY PRN PRN Reason: Constipation Last Admin: 11/01/23 03:07 Dose: 30 ml Documented By: SHERI Melatonin (Melatonin 3 Mg Tablet) 6 mg PO BEDTIME PRN PRN Reason: Insomnia Ondansetron HCl (Ondansetron Hcl 4 Mg/2 Ml Vial) 4 mg IVPUSH Q8H PRN PRN Reason: Nausea and Vomiting Oxycodone HCl (Oxycodone Hcl Immed Release 5 Mg Tablet) 10 mg PO Q6H PRN PRN Reason: pain (scale score 7-10) Last Admin: 11/02/23 08:14 Dose: 10 mg Documented By: KELLY Pharmacy Consult (Consult Rx Vancomycin Dosing) 1 each MISCELLANE DAILY PRN PRN Reason: Consult order Sodium Chloride (0.9 % Sodium Chloride Flush 3 Ml Syringe) [facility] Last Admin: 11/02/23 08:17 Dose: 3 ml Documented By: KELLY Labs 10/30/23 04:46 11/02/23 05:51 Labs: Laboratory Results - last 24 hr 11/01/23 11/01/23 11/01/23 11:15 13:04 16:08 Hold Purple Top Estim Creat Clear Calc Estimated GFR POC Glucose 245 H 164 H Random Vancomycin 14.2 L 11/01/23 11/02/23 11/02/23 20:04 05:51 07:06 Hold Purple Top SEE NOTE Estim Creat Clear Calc 137.6 Estimated GFR > 60 POC Glucose 307 H 114 Random Vancomycin Microbiology Microbiology Results: Microbiology 10/29/23 20:30 Blood Culture - Preliminary Blood - Venous No growth after 48 hours. Assessment and Plan (1) Diabetic foot ulcer: Status: Acute (2) Diabetes mellitus: Status: Acute Plan 58-year-old male with pertinent history of insulin-dependent diabetes mellitus with neuropathy, hypertension, mixed hyperlipidemia, peripheral vascular disease status post left BKA and right toe amputations presents to the emergency department for evaluation of foot pain. 1.Right foot diabetic foot infected ulcer -cefepime/vancomycin (4).. Discuss duration with surgery -continue dressing as per surgery -follow clinically 2.Insulin-dependent diabetes mellitus -acceptable control on current therapies -lispro correctional scale -adjust as indicated 3.Hypertension -acceptable control on current therapies -adjust as indicated Lovenox Full code pt requires ongoing inpt stay due to infected diabetic foot ulcer requiring iv abx and expert consultation Quality Stroke Does the patient have a stroke diagnosis?: No VTE Prior VTE?: No VTE Risk Level:: Medical - moderate - high VTE Device Contraindication: Treatment Not Indicated VTE Drug Contraindication: N/A - Med Ordered
[2023-11-02 11:42] LABS: Glucose, Whole Blood 210 mg/dL (60-115)
[2023-11-02] MEDS: Insulin Lispro 100 UNIT/ML 3 ML VIAL SUBCUT ×3 (11:50→20:58)
--- NOTE | 2023-11-02 12:52 | HO.WOUND ---
Wound Consult: Initial 58yr old?male admitted to [facility] [place] [facility] on 10/30/23 - See progress notes and H&P for detailed history.? Wound consult placed for Right Heel Diabetic wound.? Patient agreeable to assessment and photo documentation.? Chart review reveals patient was seen and bedside debridement performed by Dr. Marmolejo - see note for details. The patient reports she follows outpt with Dr. Mchugh - patient should continue to follow with Dr. Mchugh outpatient and or wound clinic for follow up care. Should patient be discharged to home VNA services would likely be needed. Right Heel Etiology: Diabetic Wound Measurements: 2.5cm x 3 cm x 0.2cm Wound Bed: marbled wound bed with red moist tissue and adherent yellow slough Drainage / Odor: rashid yellow drainage noted on dressing - no odor noted Edges: ? callused Maia wound: ?dry callused No Induration, Fluctuance or Warmth noted Pain: tender to touch Goals of Treatment: ? Current order for wet to dry in place by Dr. Marmolejo while inpatient - may consider Durafiber AG at time or discharge ever 3 days. Off load heel pressure - PT OT eval for ambulation and or boot recommendations.
[2023-11-02 13:30] LABS: Vancomycin Trough 15.9 mcg/mL (10.0-20.0)
[2023-11-02 16:26] VITALS: BP 147/71; PULSE 64; RESP 18; TEMP 37; O2SAT 92
[2023-11-02 16:27] LABS: Glucose, Whole Blood 223 mg/dL (60-115)
[2023-11-02 18:16] VITALS: BP 136/66; PULSE 72; RESP 18; O2SAT 93
[2023-11-02 18:18] LABS: Glucose, Whole Blood 188 mg/dL (60-115)
[2023-11-02 20:24] LABS: Glucose, Whole Blood 234 mg/dL (60-115)
[2023-11-02] MEDS: Insulin Glargine,Hum.rec.anlog 100 UNIT/ML 10 ML VIAL 30 UNIT SUBCUT (20:57)
[2023-11-02 23:12] VITALS: BP 135/65; PULSE 61; RESP 16; TEMP 36.6; O2SAT 93
[2023-11-03] MEDS: vancomycin HCL 1,500 MG in 0.9 % Sodium Chloride 500 ML 333.33 MG IV (02:50)
[2023-11-03] MEDS: oxyCODONE HCl Immed Release 5 MG TABLET 10 MG PO (05:27)
[2023-11-03 06:42] LABS: Creatinine Clr Calc Pharmacy 125.8; Estimated Glomerular Filt Rate > 60
[2023-11-03 07:16] VITALS: BP 117/61; PULSE 62; RESP 18; TEMP 36.1; O2SAT 94
[2023-11-03 07:23] LABS: Glucose, Whole Blood 112 mg/dL (60-115)
[2023-11-03] MEDS: carvediloL 6.25 MG TABLET PO (07:52)
[2023-11-03] MEDS: cefEPime HCl 2 GM in 0.9 % Sodium Chloride 50 ML IV (07:53)
[2023-11-03] MEDS: amLODIPine Besylate 10 MG TABLET PO (07:53)
[2023-11-03] MEDS: Atorvastatin Calcium 20 MG TABLET PO (07:53)
[2023-11-03] MEDS: 0.9 % Sodium Chloride Flush 3 ML SYRINGE IVFLUSH (07:53)
--- NOTE | 2023-11-03 09:02 | P.PNGS_ITS ---
Subjective Subjective Date of Service: 11/03/23 Interval history: Patient with no new complaints, overall feels the same. Physical Exam 2 Vital Signs: Vital Signs: Last Vital Signs Temp 96.9 F 11/03/23 07:16 Pulse 62 11/03/23 07:16 Resp 18 11/03/23 07:16 BP 117/61 11/03/23 07:16 Pulse Ox 94 11/03/23 07:16 O2 Del Method Room Air 11/03/23 07:16 BMI result Body Mass Index 29.1 Const: General: no acute distress Nutritional Appearance: well nourished Orientation/consciousness: patient oriented x3 Resp: Effort & Inspection: normal respiratory effort, no audible wheezes and no respiratory distress Neuro: General: patient oriented x3 Extrem: Other: Dressings changed to right foot. Minimal callus noted with small amount of rudimentary granulation tissue at wound base. No exposed bone or evidence of abscess. Clean dressings applied. Objective Data Active Medications Acetaminophen (Acetaminophen 325 Mg Tablet) 650 mg PO Q6H PRN PRN Reason: Pain, Mild (Pain Scale 1-3), fever or headache Amlodipine Besylate (Amlodipine Besylate 10 Mg Tablet) 10 mg PO DAILY [facility]; Protocol Last Admin: 11/03/23 07:53 Dose: 10 mg Documented By: JACLYN Atorvastatin Calcium (Atorvastatin Calcium 20 Mg Tablet) 20 mg PO DAILY [facility] Last Admin: 11/03/23 07:53 Dose: 20 mg Documented By: JACLYN Calcium Carbonate (Calcium Carbonate 750 Mg Tab.Chew) 750 mg PO Q4H PRN PRN Reason: Heartburn Last Admin: 11/02/23 08:14 Dose: 750 mg Documented By: KELLY Carvedilol (Carvedilol 6.25 Mg Tablet) 6.25 mg PO DAILY [facility]; Protocol Last Admin: 11/03/23 07:52 Dose: 6.25 mg Documented By: JACLYN Enoxaparin Sodium (Enoxaparin Sodium 40 Mg/0.4 Ml Syringe) 40 mg SUBCUT Q24H [facility] Last Admin: 11/03/23 01:48 Dose: Not Given Documented By: MARIBETH Non-Admin Reason: Patient Refused Glucose (Glucose Gel 15 Gm Gel..Gram.) 15 gm PO Q15M PRN; Protocol PRN Reason: per Hypoglycemia Standing Ord. Last Admin: 10/31/23 06:25 Dose: 15 gm Documented By: AMNOLO Dextrose (D10) 250 mls @ 750 mls/hr IV Q15M PRN; Protocol PRN Reason: per Hypoglycemia Standing Ord. Last Infusion: 10/31/23 07:19 Dose: Infused Documented By: MANOLO Cefepime HCl 2 gm/ Sodium (Chloride) 50 mls @ 100 mls/hr IV Q8H [facility] Last Infusion: 11/03/23 08:45 Dose: Infused Documented By: KELLY Vancomycin HCl 1,500 mg/ (Sodium Chloride) 500 mls @ 333.333 mls/hr IV Q12H [facility] Last Infusion: 11/03/23 04:24 Dose: Infused Documented By: MARIBETH Insulin Glargine (Insulin Glargine,Hum.Rec.Anlog 100 Unit/Ml 10 Ml Vial) 30 unit SUBCUT BEDTIME [facility] Last Admin: 11/02/23 20:57 Dose: 30 unit Documented By: MARIBETH Insulin Human Lispro (Insulin Lispro 100 Unit/Ml 3 Ml Vial) 0 unit SUBCUT QIDACHS [facility]; Protocol Last Admin: 11/03/23 07:46 Dose: Not Given Documented By: TONYAEMA Non-Admin Reason: No Insulin Coverage Magnesium Hydroxide (Milk Of Magnesia 30 Ml Oral.Susp) 30 ml PO DAILY PRN PRN Reason: Constipation Last Admin: 11/01/23 03:07 Dose: 30 ml Documented By: SHERI Melatonin (Melatonin 3 Mg Tablet) 6 mg PO BEDTIME PRN PRN Reason: Insomnia Ondansetron HCl (Ondansetron Hcl 4 Mg/2 Ml Vial) 4 mg IVPUSH Q8H PRN PRN Reason: Nausea and Vomiting Oxycodone HCl (Oxycodone Hcl Immed Release 5 Mg Tablet) 10 mg PO Q6H PRN PRN Reason: pain (scale score 7-10) Last Admin: 11/03/23 05:27 Dose: 10 mg Documented By: MARIBETH Pharmacy Consult (Consult Rx Vancomycin Dosing) 1 each MISCELLANE DAILY PRN PRN Reason: Consult order Sodium Chloride (0.9 % Sodium Chloride Flush 3 Ml Syringe) [facility] Last Admin: 11/03/23 07:53 Dose: 3 ml Documented By: JACLYN Labs 10/30/23 04:46 11/03/23 06:19 Labs: Laboratory Results - last 24 hr 11/02/23 11/02/23 11/02/23 11:34 13:11 16:11 Estim Creat Clear Calc Estimated GFR POC Glucose 210 H 223 H Vancomycin Trough 15.9 11/02/23 11/02/23 11/03/23 18:13 20:20 06:19 Estim Creat Clear Calc 125.8 Estimated GFR > 60 POC Glucose 188 H 234 H Vancomycin Trough 11/03/23 07:15 Estim Creat Clear Calc Estimated GFR POC Glucose 112 Vancomycin Trough Procedures Date of Service Date of Service: 11/03/23 Progress Note: A&P Assessment and plan (1) Diabetic foot ulcer: Status: Acute Plan 58-year-old male patient with a new diabetic foot ulcer involving the right heel. Dressings changed this morning. He is clear from my standpoint for discharge to home. He should follow up at his previously scheduled appointment on Wednesday. He is welcome to call sooner for any new concerns. Time Spent With Patient Time: Total time managing care of this patient today ____ minutes. Quality Stroke Does the patient have a stroke diagnosis?: No VTE Prior VTE?: No VTE Risk Level:: Medical - moderate - high VTE Device Contraindication: Treatment Not Indicated VTE Drug Contraindication: N/A - Med Ordered
--- NOTE | 2023-11-03 10:27 | MHC.CM.PN ---
Per MD rounds patient medically cleared for dc home w/ new [facility] for SN/wound care. Patient's sister will provide transport. IMM delivered.
--- NOTE | 2023-11-03 10:39 | P.DS_ITS ---
DS: Providers Provider Date of Service: 11/03/23 Date of admission: 10/30/23 01:45 Primary care physician: Jodi Stringer MD Consults: 10/30/23 10:41 Consult to Wound Care Routine Reason for consultation: diabetic ulcer right heel 10/31/23 12:22 Consult to General Surgery Routine Consulting Provider[place] [facility] Reason for consultation: diabetic foot ulcer DS: Diagnosis Discharge Diagnosis (1) Diabetic foot ulcer: Status: Acute DS: Summary Hospital Course Hospital Course: 58-year-old male with pertinent history of insulin-dependent diabetes mellitus with neuropathy, hypertension, mixed hyperlipidemia, peripheral vascular disease status post left BKA and right toe amputations presents to the emergency department for evaluation of foot pain. Patient states his symptoms have been ongoing for the last 4-5 days. He has a wound on his right heel and it has been draining foul-smelling pus for the last 2 days. The pain has progressively worsened and he can not put any weight on it. No fever, chills, chest discomfort, palpitations, shortness of breath, abdominal pain, changes in urinary or bowel habits. Hospital Course Admitted to general medical floor and started on vancomycin and cefepime. MRI done in failed to demonstrate presence of osteomyelitis. Seen in consultation by Dr. Mchugh who he sees as outpatient. Dr. Mchugh recommended complete a course of oral antibiotics and follow up in office as scheduled Saturday 11/04. At this point in time he is medically acceptable for discharge with VNA follow up Time Attestation Discharge Coordination Time (in mins): 35 Quality: Safe Use of Opioids Does Pt have an Active Cancer Diagnosis on the Problem List?: No Quality: Stroke Does the patient have a stroke diagnosis?: No Physical Exam Vital Signs: Vital Signs: Last Vital Signs Temp 96.9 F 11/03/23 07:16 Pulse 62 11/03/23 07:16 Resp 18 11/03/23 07:16 BP 117/61 11/03/23 07:16 Pulse Ox 94 11/03/23 07:16 O2 Del Method Room Air 11/03/23 07:16 BMI result Body Mass Index 29.1 Const: Other: Awake alert oriented x3 no acute distress Cardio: Other: No S4; positive S1-S2; no S3 murmurs rubs or gallops GI: Other: Soft nontender nondistended normoactive bowel sounds : Other: Soft nontender nondistended normoactive bowel sounds Extrem: Other: Left BKA; right heel dressing clean dry and intact DS: Data Data Completed and Pending Labs on day of discharge: Laboratory Results - last 24 hr 11/02/23 11/02/23 11/02/23 11:34 13:11 16:11 Creatinine Estim Creat Clear Calc Estimated GFR POC Glucose 210 H 223 H Vancomycin Trough 15.9 11/02/23 11/02/23 11/03/23 18:13 20:20 06:19 Creatinine 0.82 Estim Creat Clear Calc 125.8 Estimated GFR > 60 POC Glucose 188 H 234 H Vancomycin Trough 11/03/23 07:15 Creatinine Estim Creat Clear Calc Estimated GFR POC Glucose 112 Vancomycin Trough Preliminary micro results at discharge 10/29/23 20:30 Blood Culture - Preliminary Blood - Venous No growth after 48 hours. Discharge Plan Discharge Anticipated Discharge Date/Time: 11/03/23 10:28 Patient Disposition: Home Health Service Discharge Diagnosis: Diabetic foot ulcer Referrals: Corry LINDSAY [Outside] - 3-5 Days () Jodi Stringer MD [Primary Care Provider] - 1 Week Discharge Medications: New oxycodone 10 mg tablet 10 mg PO Q6H PRN (Reason: pain) Qty: 20 0RF Rx Instructions: Partial Fill upon patient request. amoxicillin-pot clavulanate 875-125 mg tablet 1 tab PO BID Qty: 14 0RF Continued (DME) Left lower limb prosthetic to fit See Rx Instructions .Route .MEDSUPPLY Qty: 1 0RF Rx Instructions: As directed (DME) Allevyn 4 X 4 bandage See Rx Instructions .Route Qty: 30 1RF Rx Instructions: As directed hydrochlorothiazide 12.5 mg capsule 12.5 mg PO DAILY insulin glargine [Basaglar KwikPen U-100 Insulin] 100 unit/mL (3 mL) insulin pen 36 unit subcut BEDTIME loratadine [Claritin] 10 mg tablet 10 mg PO DAILY PRN (Reason: Allergy Symptoms) insulin lispro [Humalog KwikPen Insulin] 100 unit/mL insulin pen See Protocol subcut TIDAC Protocol: Insulin Correction Scale Less than or equal to 110 ---- Give (units): 0 111 to 150 Give (units): 0 151 to 200 Give (units): 2 201 to 250 Give (units): 4 251 to 300 Give (units): 6 301 to 350 Give (units): 8 Greater than 350 Give (units): 10 Call MD if Blood Glucose > : 350 (DME) FreeStyle Lite Strips Strip See Rx Instructions .ROUTE .MEDSUPPLY Qty: 10 Rx Instructions: As directed (DME) lancets [FreeStyle Lancets] 28 gauge misc See Rx Instructions .ROUTE .MEDSUPPLY Qty: 100 Rx Instructions: As directed (DME) pen needle, diabetic [BD Ultra-Fine Sarah Pen Needle] 32 gauge x 5/32 needle See Rx Instructions .ROUTE .MEDSUPPLY Qty: 50 Rx Instructions: As directed atorvastatin 20 mg tablet 20 mg PO DAILY lisinopril 40 mg tablet 40 mg PO DAILY (DME) lancets [TRUEplus Lancets] 33 gauge misc See Rx Instructions Not Applicable TID Qty: 100 Rx Instructions: As directed amlodipine 10 mg tablet 10 mg PO DAILY carvedilol 6.25 mg tablet 6.25 mg PO DAILY Discontinued oxycodone 10 mg tablet 10 mg PO Q6H PRN (Reason: pain (scale score 7-10)) Qty: 30 0RF Discharge Orders: Discharge Order (Routine); Ordered 11/03/23 Ordered By: Estrada Quiles Diet: Advance to usual diet Activity on Discharge: As tolerated Stand Alone Forms: Patient Portal Discharge page Print Language: Brazilian Care Plan Goals: Complete course of Augmentin 875 twice daily for 7 days. Oxycodone 10 mg 20. Has been given for pain Health Concerns: Resume all other pre hospitalization medications Plan of Treatment: Dry dressing right heel daily Assessment: Follow up with Dr. Mchugh as scheduled 11/04
--- NOTE | 2023-11-03 10:44 | P.F2F_ITS ---
Service Date Service Date: 11/03/23 Encounter Date of encounter: 11/03/23 Encounter: Acute hospitalization Reasons for Services Signs and symptoms assessed: We will need VNA services for wound care to right heel; dry dressing to be done daily Reason for group home: wound care and diabetic teaching Homebound: Leaving the home is medically contraindicated at this time without the asist of a device and/or another person due th the listed conditions above and below. Reason homebound: unsteady gait / fall risk and unable to drive Certification: Based on the above findings, I certify that this patient is confined to the home and needs intermittent group home care, physical therapy and/or speech therapy, or continues to need occupational therapy. The patient is under my care, and I have initiated the establishment of the plan of care. The patient will be followed by a physician who will periodically review the plan of care. Time Spent With Patient Time: Total time managing care of this patient today ____ minutes.
[2023-11-03 11:46] LABS: Glucose, Whole Blood 135 mg/dL (60-115)
--- NOTE | 2023-11-03 12:36 | PC.NURSE ---
Discharge information reviewed with pt who is alert and oriented times 4. all questions answered, supplies given by Surg. provider. Josifiber Ag recommended by wound Nurse upon pt. discharge but pt. refused those supplies or instructions stated he is going to see Surg. Provider on Wednesday and that the Provider already gave him all he needs for dressing changes.
--- NOTE | 2023-11-03 19:49 | P.CDIM_ITS ---
PROVIDER RESPONSE TEXT: To clarify, the appropriate diagnosis supported by the clinical indicators: skin QUERY TEXT: PHYSICIAN'S DOCUMENTATION REQUEST Date of Query: 11/03/2023 08:23 AM EDT Patient Name: Ranulfo De La Vega Admit Date: 10/30/2023 Dear Brennen Marmolejo MD, A review of the medical record indicates additional documentation may be needed. Please review below and update the documentation accordingly. Clinical Indicators: Per Procedure Note 10/31/23: right heel sharp excisional debridement of the full-thickness of the eschar and the surrounding thick callus. The area debrided was about 3 x 3 cm Could you provide, in the Progress Notes, further clarification regarding the depth of the debridemen t? skin subcutaneous tissue and fascia muscle tendon bone Other (explain) Clinically unable to determine (explain) Thank you, Adela Clements RN Use of terms such as suspected, likely, concern for, or probable (associated with a specific diagnosi s that is being evaluated, monitored, or treated as if it exists) are acceptable and can be coded in the inpatient se tting, when documented at the time of discharge. Please use your independent medical judgment in providing your response. THIS QUERY IS PART OF THE PERMANENT MEDICAL RECORD
== END 2023-11-03 12:43 | disposition home health service (06) | DRG 638 ==
LOC: HO.ED 10-30 01:51 → HO.EDOVER 10-30 02:18 → HO.S3 10-30 07:51
PROVIDERS: Physician Assistant; Physician Assistant Medical; Admitting Provider Student in an Organized Health Care Education/Training Program; Emergency Provider Emergency Medicine; PCP Student in an Organized Health Care Education/Training Program; Visit Provider Hospitalist
DX: E11.621 Type 2 diabetes mellitus with foot ulcer (principal); L03.115 Cellulitis of right lower limb; L97.419 Non-pressure chronic ulcer of right heel and midfoot with unspecified severity; I10 Essential (primary) hypertension; E78.2 Mixed hyperlipidemia; E11.65 Type 2 diabetes mellitus with hyperglycemia; E11.628 Type 2 diabetes mellitus with other skin complications; E11.42 Type 2 diabetes mellitus with diabetic polyneuropathy; Z89.512 Acquired absence of left leg below knee; Z87.891 Personal history of nicotine dependence; Z79.4 Long term (current) use of insulin; Z79.899 Other long term (current) drug therapy
CPT/HCPCS: 36415; 73620; 73720; 80048; 80053; 80202; 82565; 82947; 83036; 85025; 85652; 86140; 87040; 93005; 99285; A9585; J0692; J1650; J2543; J3370; J3371

== ENCOUNTER → 2023-10-30 01:45 | Outpatient (BNV) | payer MEDICARE, MEDICAID, SELFPAY | PROVIDERS: Admitting Provider Student in an Organized Health Care Education/Training Program; Emergency Provider Emergency Medicine; PCP Student in an Organized Health Care Education/Training Program; Visit Provider Student in an Organized Health Care Education/Training Program | DX: E11.621 Type 2 diabetes mellitus with foot ulcer (principal); L97.519 Non-pressure chronic ulcer of other part of right foot with unspecified severity | CPT/HCPCS: 99222; 99232; 99239; 99499; G0180 ==

== ENCOUNTER → 2023-10-30 01:45 | Outpatient (BNV) | payer MEDICARE, MEDICAID, SELFPAY | PROVIDERS: Admitting Provider Student in an Organized Health Care Education/Training Program; Emergency Provider Emergency Medicine; PCP Student in an Organized Health Care Education/Training Program; Visit Provider Surgery | DX: E11.621 Type 2 diabetes mellitus with foot ulcer (principal); L97.509 Non-pressure chronic ulcer of other part of unspecified foot with unspecified severity | CPT/HCPCS: 11042; 99223; 99232 ==

== ENCOUNTER 2023-11-05 09:40 | Outpatient (AMB) | payer MEDICARE, MEDICAID, SELFPAY ==
--- NOTE | 2023-11-05 09:40 | MHC.OFFVIS ---
Vital Signs 11/05/23 09:46 BMI Reason not done Patient refused/unable Comment Pt in WC unable to obtain VS Intake Visit Reasons: Lt BKA, 2 mo follow up Intake Note: 2 month follow-up LT BKA. Pt c/o; reports no new concerns. 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: No Accompanied by: Self / Same As Patient Allergies acetaminophen Allergy (Mild, Verified 11/05/23 09:42) Rash Medication List - Last Reconciled 11/05/23 by Armin Mchugh MD amlodipine 10 mg PO DAILY amoxicillin-pot clavulanate 875-125 mg 1 tab PO BID atorvastatin 20 mg PO DAILY blood sugar diagnostic (FreeStyle Lite Strips) As directed carvedilol 6.25 mg PO DAILY foam bandage (Allevyn) As directed hydrochlorothiazide 12.5 mg PO DAILY insulin glargine (Basaglar KwikPen U-100 Insulin) 36 units subcut BEDTIME insulin lispro (Humalog KwikPen (U-100) Insulin) See Protocol units subcut TIDAC lancets (FreeStyle Lancets) As directed lancets (TRUEplus Lancets) As directed [Left lower limb prosthetic As directed] lisinopril 40 mg PO DAILY loratadine (Claritin) 10 mg PO DAILY PRN oxycodone 10 mg PO Q6H PRN pen needle, diabetic (BD Ultra-Fine Sarah Pen Needle) As directed HPI Comments Details: Adonay returns following his recent hospitalization for a right heel ulceration. This required some debridement while in the hospital and currently he is applying a dry sterile dressing. VNA called today to set up an appointment for wound check and dressing change. He returns today for a wound check. He reports persistent pain in the heel in his been mainly office feet and using his electric chair [facility] Medical History Diabetes mellitus Peripheral neuropathy Hypertension Osteomyelitis of left foot Hypercholesterolemia Surgical History Status post cryoablation History of amputation of both great toes Family History Father History of hypertension Mother History of diabetes mellitus Social History Household Members: Family Household Members Other:: Uncle Housing: House Do you presently have visiting nurse or other home services: No Alcohol intake: current Alcohol intake frequency: 3 or more drinks per day Alcohol type: beer Patient Tobacco Use Status: Former Tobacco user service: No Review of Systems Const All systems reviewed & are unremarkable except as noted in HPI and below Physical Exam Const General: no acute distress Nutritional Appearance: well nourished Orientation/consciousness: patient oriented x3 Limitations: wheelchair Resp Effort & Inspection: normal respiratory effort, no audible wheezes, no cough and no respiratory distress Neuro General: patient oriented x3 Extrem Other: Right heel with a 1.5 cm area of ulceration on the plantar surface. Granulation tissue noted at the base of the wound. Surrounding callus is noted and was excised using a 15 blade. A proximally 3 cm diameter of callus was removed around the margins of the ulceration. This was then dressed with silver alginate and dry sterile dressings. Assessment & Plan Assessment & Plan (1) Diabetic foot ulcer: Code(s): E11.621 - Type 2 diabetes mellitus with foot ulcer; L97.509 - Non-pressure chronic ulcer of other part of unspecified foot with unspecified severity Category: Medical Qualifiers: Diabetic foot ulcer location: heel Diabetes mellitus type: type 2 Laterality: right Non-pressure ulcer stage: with fat layer exposed Qualified Code(s): E11.621 - Type 2 diabetes mellitus with foot ulcer; L97.412 - Non-pressure chronic ulcer of right heel and midfoot with fat layer exposed Plan 58-year-old male patient with a history of diabetes, status post left BKA now with a right heel ulceration. I recommended applying silver alginate and provided him with some supplies. He will follow-up in a proximally 3 weeks for wound check. Coding Level of Care Code Est Pt Level 3 (33169) Diagnoses Diabetic ulcer of right heel associated with type 2 diabetes mellitus, with fat layer exposed E11.621; L97.412 Diabetic foot ulcer location: heel Diabetes mellitus type: type 2 Laterality: right Non-pressure ulcer stage: with fat layer exposed
== END 2023-11-05 10:01 | disposition home or self-care (01) ==
LOC: HO.HGS 09:40
PROVIDERS: PCP Student in an Organized Health Care Education/Training Program; Visit Provider Surgery
DX: E11.621 Type 2 diabetes mellitus with foot ulcer (principal); L97.412 Non-pressure chronic ulcer of right heel and midfoot with fat layer exposed
CPT/HCPCS: 99213

== ENCOUNTER → 2023-11-05 09:40 | Outpatient (BNVA) | payer MEDICARE, MEDICAID, SELFPAY | PROVIDERS: PCP Student in an Organized Health Care Education/Training Program; Visit Provider Surgery | DX: E11.621 Type 2 diabetes mellitus with foot ulcer (principal); E11.42 Type 2 diabetes mellitus with diabetic polyneuropathy; L97.412 Non-pressure chronic ulcer of right heel and midfoot with fat layer exposed; Z89.412 Acquired absence of left great toe; Z89.411 Acquired absence of right great toe; Z79.4 Long term (current) use of insulin | CPT/HCPCS: 99212 ==

== ENCOUNTER 2023-11-30 09:44 | Outpatient (AMB) | payer MEDICARE, MEDICAID, SELFPAY ==
--- NOTE | 2023-11-30 10:14 | MHC.OFFVIS ---
Vital Signs 11/30/23 10:15 Height 6 ft 3 in Weight 231 lb 7.766 oz BMI 28.9 BP not taken reason Medical Reason Intake Visit Reasons: Lt BKA, 1 mo follow up Intake Note: Patient is seen in office for one month follow up visit, psot left BKA. 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 This required some debridement while in the hospital and currently he is applying a dry sterile dressing. VNA called today to set up an appointment for wound check and dressing change. He returns today for a wound check. He reports persistent pain in the heel in his been mainly office feet and using his electric chair [facility] Medical History Diabetes mellitus Peripheral neuropathy Hypertension Osteomyelitis of left foot Hypercholesterolemia Surgical History Status post cryoablation History of amputation of both great toes Family History Father History of hypertension Mother History of diabetes mellitus Social History Household Members: Family Household Members Other:: Uncle Housing: House Do you presently have visiting nurse or other home services: No Alcohol intake: current Alcohol intake frequency: 3 or more drinks per day Alcohol type: beer Patient Tobacco Use Status: Former Tobacco user service: No Review of Systems Const All systems reviewed & are unremarkable except as noted in HPI and below Physical Exam Vital Signs: BMI result Body Mass Index 28.9 Const General: no acute distress Nutritional Appearance: well nourished Orientation/consciousness: patient oriented x3 Limitations: wheelchair Resp Effort & Inspection: normal respiratory effort, no audible wheezes, no cough and no respiratory distress Neuro General: patient oriented x3 Extrem Other: Right heel with a 1.5 cm area of ulceration on the plantar surface. Granulation tissue noted at the base of the wound. Surrounding callus is noted and was excised using a 15 blade, 3 cm diameter of callus was removed around the margins of the ulceration including just skin, proximally 2 mm deep.. This was then dressed with silver alginate and dry sterile dressings. Assessment & Plan Assessment & Plan (1) History of left below knee amputation: Code(s): Z89.512 - Acquired absence of left leg below knee Category: Surgical Plan History of left below-knee amputation now with a persistent heel ulceration right foot. Patient noted to have some foul-smelling discharge therefore recommended applying a gauze dressing rather than plastic dressing which is holding the moisture against the wound. Continue silver alginate and dry sterile dressings. Restart antibiotics and follow-up in 2 weeks. Medications: Refilled amoxicillin-pot clavulanate 875-125 mg 1 tab PO BID 14 tabs 0RF oxycodone Partial Fill upon patient request. 10 mg PO TID PRN 20 tabs 0RF pain Z89.512 - Acquired absence of left leg below knee Coding Level of Care Code Est Pt Level 3 (77855) Diagnoses History of left below knee amputation Z89.512
[2023-11-30 10:15] VITALS: BMI 28.9
== END 2023-11-30 10:27 | disposition home or self-care (01) ==
PROVIDERS: PCP Student in an Organized Health Care Education/Training Program; Visit Provider Surgery
DX: Z89.512 Acquired absence of left leg below knee (principal)
CPT/HCPCS: 99213

== ENCOUNTER → 2023-11-30 09:44 | Outpatient (BNVA) | payer MEDICARE, MEDICAID, SELFPAY | PROVIDERS: PCP Student in an Organized Health Care Education/Training Program; Visit Provider Surgery | DX: L97.419 Non-pressure chronic ulcer of right heel and midfoot with unspecified severity (principal); Z89.512 Acquired absence of left leg below knee; Z87.891 Personal history of nicotine dependence | CPT/HCPCS: 99212 ==

== ENCOUNTER 2023-12-14 11:10 | Outpatient (AMB) | payer MEDICARE, MEDICAID, SELFPAY ==
--- NOTE | 2023-12-14 11:20 | MHC.OFFVIS ---
Vital Signs 12/14/23 11:28 Height 6 ft 3 in Weight 231 lb 7.766 oz BMI 28.9 BP 120/70 Blood Pressure Location Lt brachial Position Sitting Intake Visit Reasons: Lt BKA, 2 wk follow up Intake Note: Patient is seen in office for 2 weeks follow up visit, following left BKA. Pt c/o:all done with antbx, VNA coming in 3 times per week, starting next week will be twice a week Continue silver alginate and dry sterile dressings. Restart antibiotics and follow-up in 2 weeks. 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 Accompanied by: Self / Same As Patient Allergies acetaminophen Allergy (Mild, Verified 12/14/23 11:29) Rash Medication List - Last Reconciled 12/14/23 by Armin Mchugh MD amlodipine 10 mg PO DAILY amoxicillin-pot clavulanate 875-125 mg 1 tab PO BID atorvastatin 20 mg PO DAILY blood sugar diagnostic (FreeStyle Lite Strips) As directed carvedilol 6.25 mg PO DAILY foam bandage (Allevyn) As directed hydrochlorothiazide 12.5 mg PO DAILY insulin glargine (Basaglar KwikPen U-100 Insulin) 36 units subcut BEDTIME insulin lispro (Humalog KwikPen (U-100) Insulin) See Protocol units subcut TIDAC lancets (FreeStyle Lancets) As directed lancets (TRUEplus Lancets) As directed [Left lower limb prosthetic As directed] lisinopril 40 mg PO DAILY loratadine (Claritin) 10 mg PO DAILY PRN oxycodone 10 mg PO TID PRN oxycodone 10 mg PO Q6H PRN pen needle, diabetic (BD Ultra-Fine Sarah Pen Needle) As directed HPI Comments Details: Adonay returns following his recent hospitalization for a right heel ulceration. This required some debridement while in the hospital and currently he is applying a dry sterile dressing. He continues with VNA for dressing changes. He is still using his wheelchair but is requesting shoes He returns today for a wound check. He reports persistent pain in the heel in his been mainly office feet and using his electric chair [facility] Medical History Diabetes mellitus Peripheral neuropathy Hypertension Osteomyelitis of left foot Hypercholesterolemia Surgical History Status post cryoablation History of amputation of both great toes Family History Father History of hypertension Mother History of diabetes mellitus Social History Household Members: Family Household Members Other:: Uncle Housing: House Do you presently have visiting nurse or other home services: No Alcohol intake: current Alcohol intake frequency: 3 or more drinks per day Alcohol type: beer Patient Tobacco Use Status: Former Tobacco user service: No Review of Systems Const All systems reviewed & are unremarkable except as noted in HPI and below Physical Exam Vital Signs: Last Vital Signs BP 120/70 12/14/23 11:28 BMI result Body Mass Index 28.9 Const General: no acute distress Nutritional Appearance: well nourished Orientation/consciousness: patient oriented x3 Limitations: wheelchair Resp Effort & Inspection: normal respiratory effort, no audible wheezes, no cough and no respiratory distress Neuro General: patient oriented x3 Extrem Other: Right heel with a 1.0 cm area of ulceration on the plantar surface. Granulation tissue noted at the base of the wound. Surrounding callus is noted and was excised using a 15 blade, 2 cm diameter of callus was removed around the margins of the ulceration including just skin, proximally 2 mm deep.. This was then dressed with silver alginate and dry sterile dressings. Assessment & Plan Assessment & Plan (1) History of left below knee amputation: Code(s): Z89.512 - Acquired absence of left leg below knee Category: Surgical Plan History of left below-knee amputation now with a persistent heel ulceration right foot. Overall the foot looks much improved with a smaller size of the ulcer and no foul-smelling discharge. I will continue the antibiotic for another week. He will follow-up in 2 weeks for wound check. Medications: Refilled amoxicillin-pot clavulanate 875-125 mg 1 tab PO BID 14 tabs 0RF Coding Level of Care Code Est Pt Level 3 (05793) Diagnoses History of left below knee amputation Z89.512
[2023-12-14 11:28] VITALS: BP 120/70; BMI 28.9
== END 2023-12-14 11:44 | disposition home or self-care (01) ==
PROVIDERS: PCP Student in an Organized Health Care Education/Training Program; Visit Provider Surgery
DX: Z89.512 Acquired absence of left leg below knee (principal)
CPT/HCPCS: 99213

== ENCOUNTER → 2023-12-14 11:10 | Outpatient (BNVA) | payer MEDICARE, MEDICAID, SELFPAY | PROVIDERS: PCP Student in an Organized Health Care Education/Training Program; Visit Provider Surgery | DX: Z89.512 Acquired absence of left leg below knee (principal) | CPT/HCPCS: 99212 ==

== ENCOUNTER 2023-12-28 10:34 | Outpatient (AMB) | payer MEDICARE, MEDICAID, SELFPAY ==
--- NOTE | 2023-12-28 10:34 | A.OFFVIS_ITS ---
Vital Signs 3 12/28/23 10:42 Height 6 ft 3 in BMI Reason not done Palliative Care Patient BP 122/72 Blood Pressure Location Lt brachial Position Sitting Pulse 62 Intake Visit Reasons: Lt BKA, 2 wk follow up Intake Note: Patient is seen in office for 2 weeks follow up visit, wound check left BKA. 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 Accompanied by: Self / Same As Patient Allergies acetaminophen Allergy (Mild, Verified 12/28/23 10:35) Rash Medication List - Last Reconciled 12/28/23 by Armin Mchugh MD amlodipine 10 mg PO DAILY amoxicillin-pot clavulanate 875-125 mg 1 tab PO BID atorvastatin 20 mg PO DAILY blood sugar diagnostic (FreeStyle Lite Strips) As directed carvedilol 6.25 mg PO DAILY [Diabetic shoes As directed] foam bandage (Allevyn) As directed hydrochlorothiazide 12.5 mg PO DAILY insulin glargine (Basaglar KwikPen U-100 Insulin) 36 units subcut BEDTIME insulin lispro (Humalog KwikPen (U-100) Insulin) See Protocol units subcut TIDAC lancets (FreeStyle Lancets) As directed lancets (TRUEplus Lancets) As directed [Left lower limb prosthetic As directed] lisinopril 40 mg PO DAILY loratadine (Claritin) 10 mg PO DAILY PRN oxycodone 10 mg PO Q6H PRN pen needle, diabetic (BD Ultra-Fine Sarah Pen Needle) As directed HPI Comments Details: Adonay returns for wound check of his right heel. He notes some foul-smelling liquid developing in the healed wound. He continues to have VNA for wound checks. He recently bought a 2nd trailer which he is cleaning and has been on his feet for a prolonged period of time. He understands that this will affect his wound healing. [facility] Medical History Diabetes mellitus Peripheral neuropathy Hypertension Osteomyelitis of left foot Hypercholesterolemia Surgical History Status post cryoablation History of amputation of both great toes Family History Father History of hypertension Mother History of diabetes mellitus Social History Household Members: Family Household Members Other:: Uncle Housing: House Do you presently have visiting nurse or other home services: No Alcohol intake: current Alcohol intake frequency: 3 or more drinks per day Alcohol type: beer Patient Tobacco Use Status: Former Tobacco user service: No Review of Systems Const All systems reviewed & are unremarkable except as noted in HPI and below Physical Exam Vital Signs: Last Vital Signs Pulse 62 12/28/23 10:42 BP 122/72 12/28/23 10:42 Const General: no acute distress Nutritional Appearance: well nourished Orientation/consciousness: patient oriented x3 Limitations: wheelchair Resp Effort & Inspection: normal respiratory effort, no audible wheezes, no cough and no respiratory distress Neuro General: patient oriented x3 Extrem Other: Right heel with a 1.2 cm area of ulceration on the plantar surface. Granulation tissue noted at the base of the wound but is somewhat dusky in color. Surrounding callus is noted and was excised using a 15 blade, 2 cm diameter of callus was removed around the margins of the ulceration including just skin, proximally 2 mm deep.. This was then dressed with silver alginate and dry sterile dressings including 4 x 4 sponge and 4 in Asya. Ankle/foot/toe images: 2 1. Site of heel ulcer Assessment & Plan Assessment & Plan (1) Ulcer of right heel: Code(s): L97.419 - Non-pressure chronic ulcer of right heel and midfoot with unspecified severity Category: Medical Qualifiers: Non-pressure ulcer stage: with fat layer exposed Qualified Code(s): L 97.412 - Non-pressure chronic ulcer of right heel and midfoot with fat layer exposed Plan 58-year-old male patient with prior history of diabetes mellitus, peripheral vascular disease, status post left BKA now with nonhealing wound of the right heel. I recommended continuing the silver alginate and antibiotics. I also recommended wound care consultation. He will follow-up in 2 weeks for wound check. Orders: Referrals 2 Wound Care Referral L97.419 - Non-pressure chronic ulcer of right heel and midfoot with unspecified severity Medications: Refilled 2 oxycodone Partial Fill upon patient request. 10 mg PO Q6H PRN 20 tabs 0RF pain Discontinued 2 oxycodone Partial Fill upon patient request. Discontinued Reason: Duplicate 10 mg PO TID PRN 20 tabs 0RF pain Z89.512 - Acquired absence of left leg below knee Coding Level of Care Code Est Pt Level 3 (29581) Complex EM visit Add On G2211 Diagnoses Skin ulcer of right heel with fat layer exposed L97.412 Non-pressure ulcer stage: with fat layer exposed
[2023-12-28 10:42] VITALS: BP 122/72; PULSE 62
== END 2023-12-28 10:56 | disposition home or self-care (01) ==
LOC: HO.HGS 10:35
PROVIDERS: PCP Student in an Organized Health Care Education/Training Program; Visit Provider Surgery
DX: L97.412 Non-pressure chronic ulcer of right heel and midfoot with fat layer exposed (principal)
CPT/HCPCS: 99213; G2211

== ENCOUNTER → 2023-12-28 10:34 | Outpatient (BNVA) | payer MEDICARE, MEDICAID, SELFPAY | PROVIDERS: PCP Student in an Organized Health Care Education/Training Program; Visit Provider Surgery | DX: L97.412 Non-pressure chronic ulcer of right heel and midfoot with fat layer exposed (principal) | CPT/HCPCS: 99212 ==

== ENCOUNTER 2024-01-18 09:44 | Outpatient (AMB) | payer MEDICARE, MEDICAID, SELFPAY ==
--- NOTE | 2024-01-18 09:46 | MHC.OFFVIS ---
Vital Signs 01/18/24 10:04 Height 6 ft 3 in Weight 226 lb 10.163 oz BMI 28.3 BP 130/60 Blood Pressure Location Lt brachial Position Sitting Pulse 78 Intake Visit Reasons: follow up, following right heel ulcer Intake Note: Patient is seen in office for 2 weeks follow up visit, following right heel ulcer. Pt c/o: VNA 3 times a week, waiting on wound center to get schedule, right heel is still draining and foul odor Hospital Secretary Required: No Accompanied by: Self / Same As Patient Allergies acetaminophen Allergy (Mild, Verified 01/18/24 10:04) Rash Medication List - Last Reconciled 01/18/24 by Armin Mchugh MD amlodipine 10 mg PO DAILY amoxicillin-pot clavulanate 875-125 mg 1 tab PO BID atorvastatin 20 mg PO DAILY blood sugar diagnostic (FreeStyle Lite Strips) As directed carvedilol 6.25 mg PO DAILY [Diabetic shoes As directed] foam bandage (Allevyn) As directed hydrochlorothiazide 12.5 mg PO DAILY insulin glargine (Basaglar KwikPen U-100 Insulin) 36 units subcut BEDTIME insulin lispro (Humalog KwikPen (U-100) Insulin) See Protocol units subcut TIDAC lancets (FreeStyle Lancets) As directed lancets (TRUEplus Lancets) As directed [Left lower limb prosthetic As directed] lisinopril 40 mg PO DAILY loratadine (Claritin) 10 mg PO DAILY PRN oxycodone 10 mg PO Q6H PRN pen needle, diabetic (BD Ultra-Fine Sarah Pen Needle) As directed HPI Comments Details: Adonay returns for wound check of his right heel. VNA notes some dark material at the base of the wound that needs to be debrided. He continues with dressing changes in his unable to drive now due to the ulceration. He has not seen wound care center yet. [facility] Medical History Diabetes mellitus Peripheral neuropathy Hypertension Osteomyelitis of left foot Hypercholesterolemia Surgical History Status post cryoablation History of amputation of both great toes Family History Father History of hypertension Mother History of diabetes mellitus Social History Household Members: Family Household Members Other:: Uncle Housing: House Do you presently have visiting nurse or other home services: No Alcohol intake: current Alcohol intake frequency: 3 or more drinks per day Alcohol type: beer Patient Tobacco Use Status: Former Tobacco user service: No Review of Systems Const All systems reviewed & are unremarkable except as noted in HPI and below Physical Exam Vital Signs: Last Vital Signs Pulse 78 01/18/24 10:04 BP 130/60 01/18/24 10:04 BMI result Body Mass Index 28.3 Const General: no acute distress Nutritional Appearance: well nourished Orientation/consciousness: patient oriented x3 Limitations: wheelchair Resp Effort & Inspection: normal respiratory effort, no audible wheezes, no cough and no respiratory distress Neuro General: patient oriented x3 Extrem Other: Right heel with a 1.2 cm area of ulceration on the plantar surface. Ulcer diameter has not changed although the wound does appear deeper with some necrotic tissue at the base. Subcutaneous tissue was debrided using scissors and scalpel. Callus on the outside of the wound was also debrided the area measuring 3 cm in diameter. Wounds were redressed silver alginate and dry sterile dressings. Assessment & Plan Assessment & Plan (1) Ulcer of right heel: Code(s): L97.419 - Non-pressure chronic ulcer of right heel and midfoot with unspecified severity Category: Medical Qualifiers: Non-pressure ulcer stage: with fat layer exposed Qualified Code(s): L97.412 - Non-pressure chronic ulcer of right heel and midfoot with fat layer exposed Plan 58-year-old male patient with prior history of diabetes mellitus, peripheral vascular disease, status post left BKA now with nonhealing wound of the right heel. I recommended continuing the silver alginate and antibiotics. I also recommended wound care consultation. He will follow-up in 2 weeks for wound check. Wound care consult. Medications: Refilled oxycodone Partial Fill upon patient request. 10 mg PO Q6H PRN 20 tabs 0RF pain Coding Level of Care Code Est Pt Level 3 (45133) Diagnoses Skin ulcer of right heel with fat layer exposed L97.412 Non-pressure ulcer stage: with fat layer exposed
[2024-01-18 10:04] VITALS: BP 130/60; PULSE 78; BMI 28.3
== END 2024-01-18 10:18 | disposition home or self-care (01) ==
PROVIDERS: PCP Student in an Organized Health Care Education/Training Program; Visit Provider Surgery
DX: L97.412 Non-pressure chronic ulcer of right heel and midfoot with fat layer exposed (principal)
CPT/HCPCS: 99213

== ENCOUNTER → 2024-01-18 09:44 | Outpatient (BNVA) | payer MEDICARE, MEDICAID, SELFPAY | PROVIDERS: PCP Student in an Organized Health Care Education/Training Program; Visit Provider Surgery | DX: E11.621 Type 2 diabetes mellitus with foot ulcer (principal); L97.412 Non-pressure chronic ulcer of right heel and midfoot with fat layer exposed; E11.42 Type 2 diabetes mellitus with diabetic polyneuropathy; I10 Essential (primary) hypertension; L84 Corns and callosities; Z79.4 Long term (current) use of insulin | CPT/HCPCS: 99212 ==

== ENCOUNTER 2024-02-01 09:09 | Outpatient (AMB) | payer MEDICARE, MEDICAID, SELFPAY ==
--- NOTE | 2024-02-01 09:31 | MHC.OFFVIS ---
Vital Signs 02/01/24 09:33 Height 6 ft 3 in Weight 226 lb 10.163 oz BMI 28.3 Pulse 76 Intake Visit Reasons: 2 wk follow up, following right heel ulcer Intake Note: Patient is seen in office for 2 wks follow up visit, following right heel ulcer. Pt c/o: admits to discharge, foul odor, on antbx, is trying to stay off it as much as possible, states is getting worse Tube Roller Required: No Accompanied by: Self / Same As Patient Allergies acetaminophen Allergy (Mild, Verified 02/01/24 09:33) Rash Medication List - Last Reconciled 02/01/24 by Armin Mchugh MD amlodipine 10 mg PO DAILY amoxicillin-pot clavulanate 875-125 mg 1 tab PO BID atorvastatin 20 mg PO DAILY blood sugar diagnostic (FreeStyle Lite Strips) As directed carvedilol 6.25 mg PO DAILY [Diabetic shoes As directed] foam bandage (Allevyn) As directed hydrochlorothiazide 12.5 mg PO DAILY insulin glargine (Basaglar KwikPen U-100 Insulin) 36 units subcut BEDTIME insulin lispro (Humalog KwikPen (U-100) Insulin) See Protocol units subcut TIDAC lancets (FreeStyle Lancets) As directed lancets (TRUEplus Lancets) As directed [Left lower limb prosthetic As directed] levofloxacin 500 mg PO DAILY 20 days lisinopril 40 mg PO DAILY loratadine (Claritin) 10 mg PO DAILY PRN metronidazole 500 mg PO Q8H 20 days oxycodone 10 mg PO Q6H PRN pen needle, diabetic (BD Ultra-Fine Sarah Pen Needle) As directed HPI Comments Details: Adonay returns for wound check of his right heel. VNA notes some dark material at the base of the wound that needs to be debrided. He continues with dressing changes in his unable to drive now due to the ulceration. He has not seen wound care center yet. He reports going to [facility] today but then cancelling the appointment. [facility] Medical History Diabetes mellitus Peripheral neuropathy Hypertension Osteomyelitis of left foot Hypercholesterolemia Surgical History Status post cryoablation History of amputation of both great toes Family History Father History of hypertension Mother History of diabetes mellitus Social History Household Members: Family Household Members Other:: Uncle Housing: House Do you presently have visiting nurse or other home services: No Alcohol intake: current Alcohol intake frequency: 3 or more drinks per day Alcohol type: beer Patient Tobacco Use Status: Former Tobacco user service: No Review of Systems Const All systems reviewed & are unremarkable except as noted in HPI and below Physical Exam Vital Signs: Last Vital Signs Pulse 76 02/01/24 09:33 BMI result Body Mass Index 28.3 Const General: no acute distress Nutritional Appearance: well nourished Orientation/consciousness: patient oriented x3 Limitations: wheelchair Resp Effort & Inspection: normal respiratory effort, no audible wheezes, no cough and no respiratory distress Neuro General: patient oriented x3 Extrem Other: Right heel with a 1.2 cm area of ulceration on the plantar surface. Ulcer diameter has not changed although the wound does appear deeper with some necrotic tissue at the base. Subcutaneous tissue was debrided using scissors and scalpel. Callus on the outside of the wound was also debrided the area measuring 3 cm in diameter. Wounds were redressed silver alginate and dry sterile dressings. Assessment & Plan Assessment & Plan (1) Ulcer of right heel: Code(s): L97.419 - Non-pressure chronic ulcer of right heel and midfoot with unspecified severity Category: Medical Qualifiers: Non-pressure ulcer stage: with fat layer exposed Qualified Code(s): L97.412 - Non-pressure chronic ulcer of right heel and midfoot with fat layer exposed Plan 58-year-old male patient with prior history of diabetes mellitus, peripheral vascular disease, status post left BKA now with nonhealing wound of the right heel. I recommended continuing the silver alginate and antibiotics. I also recommended wound care consultation. He will follow-up in 2 weeks for wound check. Wound care consult. Coding Level of Care Code Est Pt Level 3 (59302) Diagnoses Skin ulcer of right heel with fat layer exposed L97.412 Non-pressure ulcer stage: with fat layer exposed
[2024-02-01 09:33] VITALS: PULSE 76; BMI 28.3
== END 2024-02-01 09:46 | disposition home or self-care (01) ==
PROVIDERS: PCP Student in an Organized Health Care Education/Training Program; Visit Provider Surgery
DX: L97.412 Non-pressure chronic ulcer of right heel and midfoot with fat layer exposed (principal)
CPT/HCPCS: 99213

== ENCOUNTER → 2024-02-01 09:09 | Outpatient (BNVA) | payer MEDICARE, MEDICAID, SELFPAY | PROVIDERS: PCP Student in an Organized Health Care Education/Training Program; Visit Provider Surgery | DX: E11.622 Type 2 diabetes mellitus with other skin ulcer (principal); E11.51 Type 2 diabetes mellitus with diabetic peripheral angiopathy without gangrene; L97.412 Non-pressure chronic ulcer of right heel and midfoot with fat layer exposed; Z87.891 Personal history of nicotine dependence; Z89.512 Acquired absence of left leg below knee | CPT/HCPCS: 99212 ==

== ENCOUNTER 2024-02-03 08:36 | Outpatient (RCR) | payer MEDICARE, MEDICAID, SELFPAY | END 2024-04-24 13:42 | disposition home or self-care (01) | LOC: HO.WCC 08:36 | PROVIDERS: Visit Provider Surgery | DX: E11.621 Type 2 diabetes mellitus with foot ulcer (principal); L97.413 Non-pressure chronic ulcer of right heel and midfoot with necrosis of muscle; E11.40 Type 2 diabetes mellitus with diabetic neuropathy, unspecified; I10 Essential (primary) hypertension; F17.210 Nicotine dependence, cigarettes, uncomplicated; Z79.4 Long term (current) use of insulin | CPT/HCPCS: 11043 ==

== ENCOUNTER 2024-02-14 11:57 | Inpatient (IN) | payer MEDICARE, MEDICAID, SELFPAY ==
--- NOTE | ~2024-02-14 | XR_ITS ---
EXAMINATION: XR FOOT, RIGHT CLINICAL INFORMATION: ? free air, ? OM COMPARISON: 10/29/2023. TECHNIQUE: AP, lateral, and oblique views of the right foot. FINDINGS: Soft tissue ulcerations of the heel pads noted, with some gas extending to abut the cortex of the calcaneus. No additional subcutaneous emphysema. There are vascular calcifications in the soft tissue. No focal osteopenia or erosive changes in the calcaneus or bones of the foot/ankle. No no fracture or acute bony abnormality. There has been and dictation of the hallux at the level of the proximal first phalanx. Arthritic changes are present in the second MTP joint. The midfoot and hindfoot otherwise appear normal. XR/XR foot RT min 3V IMPRESSION: 1. Soft tissue ulcerations heel pad, with no radiographic evidence of osteomyelitis. 2. Amputation of the hallux at the proximal aspect proximal phalanx level. Electronically signed by: Ko Butler MD 02/14/2024 03:34 PM EST [facility]
--- NOTE | ~2024-02-14 | CT_ITS ---
EXAMINATION: CT ABDOMEN AND PELVIS WITH CONTRAST CLINICAL INFORMATION: Constipation. COMPARISON: CT abdomen and pelvis February 27, 2019 TECHNIQUE: Multidetector volumetric images were obtained from the superior aspect of the liver through the pubic symphysis following administration 85 mL of Omnipaque 350 intravenous contrast. Sagittal and coronal reformatted images were obtained on the technologist's workstation. Oral contrast: No This CT examination was performed using dose optimization techniques as appropriate, variously including the following: *Automated exposure control *Adjustment of mA and/or kV according to patient size (this includes techniques or standardized protocols for targeted exams where dose is matched to indication/reason for exam; i.e. extremities or head) *Use of iterative reconstruction technique DLP: 628 mGy-cm FINDINGS: LUNG BASES: Subpleural atelectasis reticular changes at both lung bases. LIVER, GALLBLADDER, AND BILIARY TREE: The liver is normal in size, shape, and attenuation. No focal hepatic lesion or biliary ductal dilatation is present. The gallbladder is unremarkable with no evidence of radiopaque gallstones, gallbladder wall thickening, or obvious pericholecystic inflammatory changes. PANCREAS: Unremarkable. SPLEEN: Unremarkable. ADRENAL GLANDS: Unremarkable. KIDNEYS AND URETERS: The kidneys are normal in size, shape, and attenuation. No hydronephrosis, hydroureter, or calculi seen. No perinephric stranding. BLADDER: Unremarkable. GASTROINTESTINAL TRACT: No acute abnormality. There is no diverticulitis. There is no bowel wall thickening /edema. There is no bowel obstruction. There is a moderate to large volume of stool in the colon. The appendix is normal . The small bowel loops are unremarkable. The stomach is normal. There is no hiatal hernia. ABDOMINAL WALL: No significant hernia is appreciated. LYMPH NODES: Normal. VASCULAR: No aneurysm of aorta. Atherosclerotic vascular calcifications in the abdomen and pelvis. PELVIC VISCERA: Unremarkable. OSSEOUS STRUCTURES: Unremarkable. CT/CT abdomen pelvis w IV con IMPRESSION: No acute abnormality CT scan abdomen pelvis. Moderate to large volume of stool in the colon. No acute abnormality of the bowel. Fleischner guidelines were followed. Electronically signed by: Chris Galo MD 02/14/2024 04:42 PM [facility]
--- NOTE | ~2024-02-14 | MR_ITS ---
EXAMINATION: MR FOOT WITHOUT AND WITH CONTRAST, RIGHT CLINICAL INFORMATION: Right foot abscess, evaluate for osteomyelitis COMPARISON: MRI 10/30/2023 TECHNIQUE: MRI of the right foot was performed before and after the intravenous administration of 10 mL Gadavist on a high-field scanner. FINDINGS: There is a skin defect/soft tissue ulceration of the medial/plantar heel pad and a separate ulceration at the medial aspect of the calcaneus. Peripherally enhancing subcutaneous air/phlegmonous change extends along the posterior and medial aspects of the calcaneus over an area measuring approximately 6 x 5 x 5 cm. In addition, there is a longitudinal, peripherally enhancing collection with foci of air extending distally along the quadratus plantae muscle to the midfoot. There is marrow edema/enhancement with foci of low T1 signal intensity of the calcaneus between the calcaneal insertion of the Achilles tendon and origin of the plantar fascia possibly with intraosseous foci of air, compatible with osteomyelitis. The Achilles tendon, plantar fascia, flexor and extensor tendons, and ankle ligaments appear intact. No ankle or subtalar joint effusions. MR/MR foot RT wo/w con IMPRESSION: 1. Soft tissue ulcerations of the medial/plantar heel pad and medial aspect of the calcaneus as described with subcutaneous air/phlegmonous change/abscess extending along the posterior and medial aspect of the calcaneus. There is also a longitudinal abscess extending distally along the quadratus plantae muscle. 2. Underlying osteomyelitis of the calcaneus as described. Electronically signed by: John Page MD 02/15/2024 09:14 PM [facility]
[2024-02-14 12:10] VITALS: BP 122/56; BP 144/88; PULSE 89; RESP 18; TEMP 37.1; O2SAT 96; O2SAT 98; BMI 28.5
[2024-02-14 12:12] LABS: Glucose, Whole Blood 201 mg/dL (60-115)
--- NOTE | 2024-02-14 12:32 | ED_ITS ---
HPI - General Adult General Chief complaint: Abdominal Pain Stated complaint: Pt has cyst on R foot. Pt no bowel mov 6 days Time Seen by Provider: 02/14/24 12:32 History of Present Illness ED Provider: Dr. Johnson HPI narrative: 58 y/o M patient; PMH HTN, HLD, hypothyroidism, T2DM, peripheral vascular disease status post left BKA and right toe amputations; presents via EMS with report of 6 days without bowel movements or passing flatus. The patient denies: nausea/vomiting, abdominal pain, fever or chills. He reports he has a chronic right foot wound for which he has VNA services. The wound was packed and dressed this morning. He is currently on antibiotics (Levofloxacin and Metronidazole) and oxycodone 10mg q6hr. Patient is followed by the wound care center and general surgery. Related Data Home Medications ?Medication ?Instructions ?Recorded ?Confirmed atorvastatin 20 mg tablet 20 mg PO DAILY 11/30/19 02/01/24 blood sugar diagnostic (FreeStyle #10 ea 11/30/19 02/01/24 Lite Strips) insulin lispro 100 unit/mL See Protocol subcut TIDAC 11/30/19 02/01/24 subcutaneous pen (Humalog KwikPen (U-100) Insulin) lancets 28 gauge (FreeStyle #100 ea 11/30/19 02/01/24 Lancets) pen needle, diabetic 32 gauge x #50 ea 11/30/19 02/01/24 (BD Ultra-Fine Sarah Pen Needle) amlodipine 10 mg tablet 10 mg PO DAILY 04/15/21 02/01/24 carvedilol 6.25 mg tablet 6.25 mg PO DAILY 04/15/21 02/01/24 lancets 33 gauge (TRUEplus Lancets) #100 ea 04/15/21 02/01/24 lisinopril 40 mg tablet 40 mg PO DAILY 04/15/21 02/01/24 hydrochlorothiazide 12.5 mg capsule 12.5 mg PO DAILY 10/30/23 02/01/24 insulin glargine 100 unit/mL (3 36 unit subcut BEDTIME 10/30/23 02/01/24 mL) subcutaneous pen (Basaglar KwikPen U-100 Insulin) loratadine 10 mg tablet (Claritin) 10 mg PO DAILY PRN Allergy Symptoms 10/30/23 02/01/24 Previous Rx's ?Medication ?Instructions ?Recorded Left lower limb prosthetic #1 ea 04/07/23 foam bandage 4 X 4 (Allevyn) #30 ea 10/11/23 Diabetic shoes #1 ea 12/17/23 amoxicillin 875 mg-potassium 1 tab PO BID #30 tabs 12/24/23 clavulanate 125 mg tablet levofloxacin 500 mg tablet 500 mg PO DAILY 20 days #20 tabs 01/21/24 metronidazole 500 mg tablet 500 mg PO Q8H 20 days #60 tabs 01/21/24 oxycodone 10 mg tablet 10 mg PO Q6H PRN pain #20 tabs 02/10/24 Allergies Allergy/AdvReac Type Severity Reaction Status Date / Time acetaminophen Allergy Mild Rash Verified 02/14/24 12:12 Review of Systems 2 Review of Systems: Yes all other systems are reviewed and are negative [facility] Past Medical History Attestation statement: The following information was validated with the patient. Source: old records reviewed Medical History Diabetes mellitus Peripheral neuropathy Hypertension Osteomyelitis of left foot Hypercholesterolemia Surgical History Status post cryoablation History of amputation of both great toes Family History Family History Father History of hypertension Mother History of diabetes mellitus Social History Social History Household Members: Family Household Members Other:: Uncle Housing: House Do you presently have visiting nurse or other home services: No Alcohol intake: former Patient Tobacco Use Status: Former Tobacco user Smoked in Last 30 Days: Yes Use of substances other than those prescribed or required for medical reasons: No Advance Directives: Yes Advance Directives Information Provided: No Advance Directives on File: No service: No Physical Exam ED Vital Signs: Vital Signs - 24 hr 02/14/24 12:10 02/14/24 14:11 Temperature 98.7 F 99.0 F Pulse Rate 89 83 Respiratory Rate 18 14 Blood Pressure 122/56 L 97/47 L Pulse Oximetry 96 93 Oxygen Delivery Method Room Air Room Air BMI result Body Mass Index 28.5 Patient is afebrile and hemodynamically stable. Const General: cooperative Orientation/consciousness: patient oriented x3 HENMT Head: Yes normal to inspection and Yes atraumatic Eyes General: appearance normal, both eyes and all related structures Neck Neck: Yes normal visual inspection, Yes full ROM, Yes supple and No tender Chest Chest palpation & inspection: normal inspection of the chest and normal palpation of entire chest wall Resp Effort & Inspection: normal respiratory effort, able to speak in complete sentences, no cough and no respiratory distress Auscultation: clear to auscultation bilaterally Cardio Rate: regular rate GI Palpation (GI): Soft to palpation, not firm, nontender, no guarding and not rigid Auscultation: normal bowel sounds Back/Spine/Pelvis Back: No back tenderness Neuro General: patient oriented x3 Extrem Other: LLE: Left BKA RLE: Right toe amputations, well healing ulceration to heel, large blister to medial aspect of foot with surrounding erythema. NVI. Course Course Course Narrative: Patient is afebrile and hemodynamically stable. Concern of possible infected blister on right lower extremity. Patient is uncertain if he may have worn ill-fitting shoes. Given extent of surrounding erythema - I do think patient will need a course of IV antibiotics. He is not meeting sepsis criteria. Started on Vancomycin and Cefepime for broad spectrum coverage given recent oral antibiotic course. Ordered for XR R Foot, laboratory studies, and CT Abdomen/Pelvis given constipation. Reevaluation(s) Reevaluation #1: Labs reviewed. Leukocytosis noted. Hyponatremia 129. CRP elevated. ESR elevated. XR without free air noted. Discussed with general surgery who was made aware of the patient. CT significant for moderate amount of fecal retention. Provided Lactulose 20mg PO. Plan: Admit to hospitalist Condition: Stable Medications Administered Discontinued Medications Generic Name Dose Route Start Last Admin Trade Name Freq PRN Reason Stop Dose Admin Vancomycin HCl 2,000 mg in 500 mls @ 250 mls/hr 02/14/24 13:23 02/14/24 14:58 Vancomycin/Ns IV 02/14/24 15:22 250 mls/hr ONCE ONE Administration Cefepime HCl 2 gm in 50 mls @ 100 mls/hr 02/14/24 13:23 02/14/24 14:58 Maxipime IV 02/14/24 13:52 Infused ONCE ONE Infusion Medical Decision Making Lab Data 02/14/24 13:37 02/14/24 13:37 Labs: Lab Results 02/14/24 02/14/24 Range/Units 12: 13:37 WBC 15.6 H (4.8-10.8) X10*3/uL RBC 4.16 L (4.60-5.80) X10*6/uL Hgb 12.9 L (14.0-18.0) g/dl Hct 36.0 L (42.0-52.0) % MCV 86.5 (80.0-98.0) fL MCH 31.0 (27.0-33.0) pg MCHC 35.8 (31.0-36.0) g/dl RDW 12.7 (11.0-16.0) % Plt Count 250 (160-400) X10*3/uL MPV 9.7 (9.4-12.4) fL Immature Gran % (Auto) 0.6 H (0.0-0.4) % Neut % (Auto) 84.4 H (45-73) % Lymph % (Auto) 6.1 L (20-40) % [place] % (Auto) 8.3 (2-11) % Eos % (Auto) 0.3 (0-4) % Baso % (Auto) 0.3 (0-2) % Lymph # (Auto) 1.0 L (1.2-4.9) X10*3/uL [place] # (Auto) 1.3 H (0.1-1.2) X10*3/uL Eos # (Auto) 0.0 (0.0-0.4) X10*3/uL Baso # (Auto) 0.0 (0.0-0.2) X10*3/uL Abs Immat Gran (auto) 0.09 H (0.00-0.03) X10*3/uL Absolute Neuts (auto) 13.2 H (2.0-8.3) x10*3/uL Absolute Nucleated RBC 0.000 (0.0-0.012) X10*3/uL Nucleated RBC % (auto) 0.0 (0.0-0.2) /100WBC ESR 81 H (0-15) MM/HR Hold Purple Top SEE NOTE Sodium 129 L (135-145) mmol/L Potassium 3.8 (3.3-5.1) mmol/L Chloride 93 L (96-108) mmol/L Carbon Dioxide 26 (22-29) mmol/L Anion Gap 14 (12-20) BUN 19 H (9-16) mg/dL Creatinine 1.00 (0.5-1.4) mg/dL Estim Creat Clear Calc 102.2 Estimated GFR > 60 POC Glucose 201 H (60-115) mg/dL Random Glucose 219 H (60-115) mg/dL Lactic Acid 1.3 (0.5-2.0) mmol/L Calcium 8.9 (8.4-10.2) mg/dL Total Bilirubin 0.8 (0.0-1.0) mg/dL Direct Bilirubin 0.3 (0.0-0.5) mg/dL AST 23 (5-37) U/L ALT 18 (0-40) U/L Alkaline Phosphatase 86 (39-117) U/L C-Reactive Protein 24.00 H (< or = 0.50) mg/dL Total Protein 6.7 (6.5-8.0) g/dL Albumin 3.1 L (3.5-5.0) g/dL Lipase 6 L (8-78) U/L Radiology Impression Discussion of test interpretation with radiology: I have reviewed the radiologist's reading. Radiologist Impression: EXAMINATION: XR FOOT, RIGHT CLINICAL INFORMATION: ? free air, ? OM COMPARISON: 10/29/2023. TECHNIQUE: AP, lateral, and oblique views of the right foot. FINDINGS: Soft tissue ulcerations of the heel pads noted, with some gas extending to abut the cortex of the calcaneus. No additional subcutaneous emphysema. There are vascular calcifications in the soft tissue. No focal osteopenia or erosive changes in the calcaneus or bones of the foot/ankle. No no fracture or acute bony abnormality. There has been and dictation of the hallux at the level of the proximal first phalanx. Arthritic changes are present in the second MTP joint. The midfoot and hindfoot otherwise appear normal. XR/XR foot RT min 3V IMPRESSION: 1. Soft tissue ulcerations heel pad, with no radiographic evidence of osteomyelitis. 2. Amputation of the hallux at the proximal aspect proximal phalanx level. Electronically signed by: Ko Butler MD 02/14/2024 03:34 PM EST EXAMINATION: CT ABDOMEN AND PELVIS WITH CONTRAST CLINICAL INFORMATION: Constipation. COMPARISON: CT abdomen and pelvis February 27, 2019 TECHNIQUE: Multidetector volumetric images were obtained from the superior aspect of the liver through the pubic symphysis following administration 85 mL of Omnipaque 350 intravenous contrast. Sagittal and coronal reformatted images were obtained on the technologist's workstation. Oral contrast: No This CT examination was performed using dose optimization techniques as appropriate, variously including the following: *Automated exposure control *Adjustment of mA and/or kV according to patient size (this includes techniques or standardized protocols for targeted exams where dose is matched to indication/reason for exam; i.e. extremities or head) *Use of iterative reconstruction technique DLP: 628 mGy-cm FINDINGS: LUNG BASES: Subpleural atelectasis reticular changes at both lung bases. LIVER, GALLBLADDER, AND BILIARY TREE: The liver is normal in size, shape, and attenuation. No focal hepatic lesion or biliary ductal dilatation is present. The gallbladder is unremarkable with no evidence of radiopaque gallstones, gallbladder wall thickening, or obvious pericholecystic inflammatory changes. PANCREAS: Unremarkable. SPLEEN: Unremarkable. ADRENAL GLANDS: Unremarkable. KIDNEYS AND URETERS: The kidneys are normal in size, shape, and attenuation. No hydronephrosis, hydroureter, or calculi seen. No perinephric stranding. BLADDER: Unremarkable. GASTROINTESTINAL TRACT: No acute abnormality. There is no diverticulitis. There is no bowel wall thickening /edema. There is no bowel obstruction. There is a moderate to large volume of stool in the colon. The appendix is normal . The small bowel loops are unremarkable. The stomach is normal. There is no hiatal hernia. ABDOMINAL WALL: No significant hernia is appreciated. LYMPH NODES: Normal. VASCULAR: No aneurysm of aorta. Atherosclerotic vascular calcifications in the abdomen and pelvis. PELVIC VISCERA: Unremarkable. OSSEOUS STRUCTURES: Unremarkable. CT/CT abdomen pelvis w IV con IMPRESSION: No acute abnormality CT scan abdomen pelvis. Moderate to large volume of stool in the colon. No acute abnormality of the bowel. Fleischner guidelines were followed. Electronically signed by: Chris Galo MD 02/14/2024 04:42 PM EST RP Discharge Plan Discharge Clinical Impression: Cellulitis, Constipation Patient Disposition: Admitted As Inpatient Print Language: Bur[place]ian
[2024-02-14 13:43] LABS: MANUAL DIFF FLAG NO
[2024-02-14 13:45] LABS: Basophils Percent Auto 0.3 % (0-2); Eosinophils Percent Auto 0.3 % (0-4); Hemoglobin 12.9 g/dl (14.0-18.0); Imm Gran Abs Auto 0.09 X10*3/uL (0.00-0.03); Imm Gran Pct Auto 0.6 % (0.0-0.4); Lymphocytes Percent Auto 6.1 % (20-40); Mean Corpuscular HGB Conc 35.8 g/dl (31.0-36.0); Mean Corpuscular Volume 86.5 fL (80.0-98.0); Mean Platelet Volume 9.7 fL (9.4-12.4); Monocytes Absolute Auto 1.3 X10*3/uL (0.1-1.2); Monocytes Percent Auto 8.3 % (2-11); Neutrophils Absolute Auto 13.2 x10*3/uL (2.0-8.3); Neutrophils Percent Auto 84.4 % (45-73); Platelet Count 250 X10*3/uL (160-400); Red Blood Count 4.16 X10*6/uL (4.60-5.80); Red Cell Distribution Width 12.7 % (11.0-16.0); White Blood Count 15.6 X10*3/uL (4.8-10.8)
[2024-02-14 14:01] LABS: Alanine Aminotransferase 18 U/L (0-40); Albumin Level 3.1 g/dL (3.5-5.0); Alkaline Phosphatase 86 U/L (39-117); Anion Gap 14 (12-20); Aspartate Amino Transferase 23 U/L (5-37); Bilirubin Direct 0.3 mg/dL (0.0-0.5); Bilirubin Total 0.8 mg/dL (0.0-1.0); Blood Urea Nitrogen 19 mg/dL (9-16); Calcium 8.9 mg/dL (8.4-10.2); Carbon Dioxide 26 mmol/L (22-29); Chloride 93 mmol/L (96-108); Creatinine Clr Calc Pharmacy 102.2; Estimated Glomerular Filt Rate > 60; Glucose Random 219 mg/dL (60-115); Lactic Acid 1.3 mmol/L (0.5-2.0); Lipase 6 U/L (8-78); Potassium 3.8 mmol/L (3.3-5.1); Sodium 129 mmol/L (135-145); Total Protein 6.7 g/dL (6.5-8.0)
[2024-02-14 14:11] VITALS: BP 97/47; PULSE 83; RESP 14; TEMP 37.2; O2SAT 93
[2024-02-14] MEDS: cefEPime HCl/D5W 2 GM/50 ML PIGGYBACK IV ×2 (14:19→21:27)
[2024-02-14 14:24] LABS: Erythrocyte Sedimentation Rate 81 MM/HR (0-15)
--- NOTE | 2024-02-14 14:27 | MHC.CM.ED ---
Patient is currently in ER. Received notification from [facility] that patient is active with their agency. Return referral made in [facility] so they can follow for d/c needs.
[2024-02-14] MEDS: vancomycin/NS 2,000 MG/500 ML PLAST..BAG 250 MG IV (14:58)
[2024-02-14 17:00] VITALS: BP 123/58; PULSE 62; RESP 18; TEMP 36.8; O2SAT 98
--- NOTE | 2024-02-14 17:02 | PC.NURSE ---
Pt aware of plan of care. Right foot wound redressed by this RN. has been weeping serosanguenous fluid. awaits room assignment on floor.
--- NOTE | 2024-02-14 17:12 | PM.IMHP ---
History of Present Illness Date of Service: 02/14/24 Chief Complaint: Constipation 58-year-old gentleman with past medical history of hypertension, hyperlipidemia, hypothyroidism, type 2 diabetes mellitus, peripheral vascular disease status post left BKA and right big toe amputation, recently discharged from [facility] in 11/19/2023 after requiring treatment for right heel wound, with no evidence of osteomyelitis on MRI patient was treated with IV antibiotic and was discharged home with VNA for wound care, patient presented to [place] today for not moving bowels or passing flatus in last six days,, he denies associated nausea, no vomiting, no abdominal pain, no fevers or chills, as per patient he has been using his oxycodone 10 mg every 6 hours, and taking his med medications Levaquin and metronidazole, on examination in ED patient was noted to have right lower extremity redness swelling and possibly infected blister, patient uncertain if he was wearing ill-fitting shoes, patient was treated in ED with IV vancomycin and cefepime x-ray of foot showed soft tissue ulceration heel pad with no evidence of osteomyelitis, CT abdomen and pelvis showed moderate to large volume of stool in the colon, no acute abnormality of the bowel, WBC 15.6, CRP 24, albumin 3.1, blood sugar 219, creatinine 1, sodium of 129 and a chloride of 93. Review of Systems Review of Systems: General no headache no dizziness no fever chills. CVS no chest pain, no palpitation. Respiratory no cough, no sob Gastrointestinal no nausea no vomiting, no abdominal pain, constipation no urgency, no frequency All other system reviewed and are negative [facility] Medical History Diabetes mellitus Peripheral neuropathy Hypertension Osteomyelitis of left foot Hypercholesterolemia Family History Father History of hypertension Mother History of diabetes mellitus Surgical History Status post cryoablation History of amputation of both great toes Social History Household Members: Family Household Members Other:: Uncle Housing: House Do you presently have visiting nurse or other home services: No Alcohol intake: former Patient Tobacco Use Status: Current everyday Tobacco user Cigarette Packs Per Day: 0.5 Cigarettes Per Day: 10.0 Years Smoked: 35 Smoked in Last 30 Days: Yes Patient Interested in Nicotine Replacement: No Use of substances other than those prescribed or required for medical reasons: No Currently Displaying Signs/Symptoms of Drug Intoxication Withdrawal: No Have you been hit, kicked, punched, or otherwise hurt by someone within the past year? If so, by whom?: No Do you feel safe in your current relationship?: No Is there a partner from a previous relationship who is making you feel unsafe now?: No Are you made to feel afraid or neglected: No Advance Directives: Yes Advance Directives Information Provided: No Advance Directives on File: No (wouldnt let me cont w/o a date in but not on file) Advance Directives Date on File: 02/14/24 Do you have a plan to hurt others: No Plan Recently lost weight without trying: Unsure Eating poorly because of decreased appetite: Yes Nutrition Risks: Poor intake 0-25% >4 days service: No Meds Allergies Allergy/AdvReac Type Severity Reaction Status Date / Time acetaminophen Allergy Mild Rash Verified 02/14/24 12:12 Home Medications ?Medication ?Instructions ?Recorded ?Confirmed ?Last Taken ?Type atorvastatin 20 mg tablet 20 mg PO DAILY 11/30/19 02/14/24 02/14/24 History blood sugar diagnostic (FreeStyle #10 ea 11/30/19 02/01/24 Unknown History Lite Strips) insulin lispro 100 unit/mL See Protocol subcut TIDAC 11/30/19 02/14/24 02/14/24 History subcutaneous pen (Humalog KwikPen (U-100) Insulin) lancets 28 gauge (FreeStyle #100 ea 11/30/19 02/01/24 Unknown History Lancets) pen needle, diabetic 32 gauge x #50 ea 11/30/19 02/01/24 Unknown History (BD Ultra-Fine Sarah Pen Needle) amlodipine 10 mg tablet 10 mg PO DAILY 04/15/21 02/14/24 02/14/24 History carvedilol 6.25 mg tablet 6.25 mg PO DAILY 04/15/21 02/14/24 02/14/24 History lancets 33 gauge (TRUEplus Lancets) #100 ea 04/15/21 02/01/24 Unknown History lisinopril 40 mg tablet 40 mg PO DAILY 04/15/21 02/14/24 02/14/24 History hydrochlorothiazide 12.5 mg capsule 12.5 mg PO DAILY 10/30/23 02/14/24 02/14/24 History insulin glargine 100 unit/mL (3 36 unit subcut BEDTIME 10/30/23 02/14/24 02/13/24 History mL) subcutaneous pen (Basaglar KwikPen U-100 Insulin) Physical Exam Vital Signs and Narrative: Vital Signs: Last Vital Signs Temp 98.3 F 02/14/24 17:00 Pulse 62 02/14/24 17:00 Resp 18 02/14/24 17:00 BP 123/58 L 02/14/24 17:00 Pulse Ox 98 02/14/24 17:00 O2 Del Method Room Air 02/14/24 17:00 BMI result Body Mass Index 28.5 Const: Other: General resting comfortably in no acute distress. Moist mucous membrane Neck no JVD. CVS regular rate rhythm, Respiratory lungs clear to auscultation, no respiratory distress, no wheeze, no rhonchi. Gastrointestinal abdomen soft, non tender, bowel sounds audible, no guarding , no rigidity. Extremities left BKA Right heel hemorrhagic blister with surrounding redness, wound right heel plantar surface, no surrounding fluctuation packing in place Neuro non focal Psych appropriate affect Results Labs 02/15/24 06:10 02/15/24 06:10 Labs: Laboratory Results - last 24 hr 02/14/24 02/14/24 12:09 13:37 MCV 86.5 MCH 31.0 MCHC 35.8 RDW 12.7 Plt Count 250 MPV 9.7 Immature Gran % (Auto) 0.6 H Neut % (Auto) 84.4 H Lymph % (Auto) 6.1 L Gray % (Auto) 8.3 Eos % (Auto) 0.3 Baso % (Auto) 0.3 Lymph # (Auto) 1.0 L Gray # (Auto) 1.3 H Eos # (Auto) 0.0 Baso # (Auto) 0.0 Abs Immat Gran (auto) 0.09 H Absolute Neuts (auto) 13.2 H Absolute Nucleated RBC 0.000 Nucleated RBC % (auto) 0.0 ESR 81 H Hold Purple Top SEE NOTE Anion Gap 14 Estim Creat Clear Calc 102.2 Estimated GFR > 60 POC Glucose 201 H Random Glucose 219 H Lactic Acid 1.3 Calcium 8.9 Total Bilirubin 0.8 Direct Bilirubin 0.3 AST 23 ALT 18 Alkaline Phosphatase 86 C-Reactive Protein 24.00 H Total Protein 6.7 Albumin 3.1 L Lipase 6 L Imaging Radiologist's Impressions: Impressions Foot X-Ray 02/14/24 13:44 IMPRESSION: 1. Soft tissue ulcerations heel pad, with no radiographic evidence of osteomyelitis. 2. Amputation of the hallux at the proximal aspect proximal phalanx level. Electronically signed by: Ko Butler MD 02/14/2024 03:34 PM EST RP Abdomen/Pelvis CT 02/14/24 15:05 IMPRESSION: No acute abnormality CT scan abdomen pelvis. Moderate to large volume of stool in the colon. No acute abnormality of the bowel. Fleischner guidelines were followed. Electronically signed by: Chris Galo MD 02/14/2024 04:42 PM EST RP Assessment and Plan (1) Constipation: Status: Acute (2) Cellulitis: Status: Acute (3) Ulcer of right heel: Qualifiers: Non-pressure ulcer stage: with fat layer exposed Qualified Code(s): L97.412 - Non-pressure chronic ulcer of right heel and midfoot with fat layer exposed Status: Acute Plan 58-year-old male with pertinent history of insulin-dependent diabetes mellitus with neuropathy, hypertension, mixed hyperlipidemia, peripheral vascular disease status post left BKA and right toe amputations presents to the emergency department for evaluation of foot pain. # Constipation due to narcotics will place on stool softeners/MiraLax/lactulose and enema if no response #. Right foot diabetic foot infected ulcer with purulent cellulitis/abscess: initiate empiric IV cefepime and vancomycin. No sepsis, consulting general surgery and Wound Care. Recently discharged from [facility] after requiring treatment for right foot wound, MRI showed no acute osteomyelitis patient was discharged home on antibiotics and VNA services # acute mild hyponatremia sodium 129 likely due to hydrochlorothiazide will check serum osmolality/urine osmolality and urinary sodium, follow BMP, hold hydrochlorothiazide. #. Insulin-dependent diabetes mellitus with hyperglycemia and neuropathy: Diabetic diet/insulin sliding scale, continue Lantus 20 units at bedtime home dose Lantus 36 units #. Hypertension: Soft blood pressure will hold lisinopril, Norvasc and hydrochlorothiazide, Continue Coreg and follow BP #. Mixed hyperlipidemia: Continue Lipitor 20 mg. DVT prophylaxis: Lovenox Full code Admit as inpatient and will require two night hospital stay for IV antibiotics (as above), which is not possible in a lesser acute setting. Quality Stroke Does the patient have a stroke diagnosis?: No VTE Prior VTE?: No VTE Risk Level:: Medical - moderate - high VTE Device Contraindication: Treatment Not Indicated VTE Drug Contraindication: N/A - Med Ordered
[2024-02-14] MEDS: Lactulose 20 GM/30 ML SOLUTION PO (17:14)
--- NOTE | 2024-02-14 17:18 | PHA.MEDREC ---
Addendum entered by Tom Salter RPh 02/14/24 18:41: Med rec was reviewed by [facility]. Patient said he's taking his medications the same as last discharge in october and per med rec note from october, patient decreased his dose of carvedilol from twice a day to once a day. Original Note: Pharmacy Consult ? Medication Reconciliation Pharmacy has completed the medication reconciliation. Spoke with patient and confirmed medications. At first patient was cooperating with confirming his medications but 3 meds down my list when I asked if he takes his Atorvastatin 20mg tab in the morning or night he stated You guys have records of all my medications I still take everything. The most recent discharge packet we have for him is from 11/02 and when I explained to him I was here to confirm the way he is taking his medications so if there were changed in out history we can update it and he then stated We'll I take the Oxycodone, high blood pressure medications, high cholesterol and insulin . He confirmed he is taking the Oxycodone 10mg tab about q6h as needed for pain. Looking in claims for HBP medications Amlodipine 10mg and Hydrochlorothiazide 12.5mg were filled 01/20 for 30 days, Carvedilol 6.35mg was filled 01/17 for 30 days and Lisionpril 40mg tabs were filled 11/21 for 90 days. He confirmed his Basalglar KwikPen and confirmed he is injecting 36 units at bedtime. He also confirmed the Humalog U-100 and confirmed he is using it per a sliding scale three times a day before meals. He was not sure the names of the antibiotics hes taking and when taking to him I found out and found out he finished the Metronidazole 500mg tab yesterday am and when I asked him if he takes an antibiotic once daily or one every 8 hours he confirmed he is taking an antibiotic once daily right now and started that about 4 days about he claims. He confirmed he took his morning medications this morning.
--- NOTE | 2024-02-14 18:02 | PHA.PROG ---
Admission Date/Time: February 14, 2024 17:29 Indication: SKIN Weight in k.3 kg Adjusted body weight in Kg: [place] body weight in Kg: Obesity Dosing Indication % IBW: Serum Creatinine - Last 168 Hours 02/14/24 13:37 Creatinine 1.00 Estimated CrCl and GFR - Last 168 Hours 02/14/24 13:37 Estim Creat Clear Calc 102.2 Estimated GFR > 60 Vancomycin Loading Dose: 2000 MG Current Vancomycin Dosing Regimen: 1000 MG Q12H Vancomycin Monitoring using AUC goal of 400 - 600 range with trough as surrogate marker: AWY=624 TROUGH=14.8 Date and Time for next Vancomycin Level to be drawn: 02/15/24 @2100 Pharmacist Comments on Vancomycin Plan: Vancomycin dosing will take advantage of Lot[employer] as a clinical decision support tool that uses Bayesian modeling to calculate individual patient's pharmacokinetic parameters and forecast the patient's drug concentration time course with the target goal AUC 24 range of 400 - 600 mg/L/hr.
[2024-02-14 18:38] LABS: Glucose, Whole Blood 230 mg/dL (60-115)
[2024-02-14] MEDS: Insulin Glargine,Hum.rec.anlog 100 UNIT/ML 10 ML VIAL 20 UNIT SUBCUT (18:40)
[2024-02-14 19:50] VITALS: BP 112/58; PULSE 88; RESP 20; TEMP 37.1; O2SAT 94
[2024-02-14 20:00] VITALS: BP 124/58; PULSE 86; RESP 20; TEMP 37.4; O2SAT 92
[2024-02-14 21:15] LABS: Glucose, Whole Blood 317 mg/dL (60-115)
[2024-02-14] MEDS: Docusate Sodium 100 MG CAPSULE 200 MG PO (21:25)
[2024-02-14] MEDS: Insulin Lispro 100 UNIT/ML 3 ML VIAL SUBCUT (21:26)
[2024-02-14] MEDS: vancomycin HCL 1,000 MG in 0.9 % Sodium Chloride 250 ML 270 MG IV (22:58)
[2024-02-15 00:25] VITALS: BP 124/62; PULSE 81; RESP 20; TEMP 36.9; O2SAT 92
[2024-02-15] MEDS: Calcium Carbonate 750 MG TAB.CHEW PO (00:37)
[2024-02-15 04:00] VITALS: BP 127/60; PULSE 85; RESP 20; TEMP 37.1; O2SAT 94
[2024-02-15 04:57] LABS: Sodium Urine Random < 20.0 mmol/L
[2024-02-15 05:12] LABS: Osmolality Urine 610 mosm/kg (373-1093)
[2024-02-15] MEDS: cefEPime HCl/D5W 2 GM/50 ML PIGGYBACK IV ×3 (06:26→20:50)
[2024-02-15] MEDS: oxyCODONE HCl Immed Release 5 MG TABLET PO ×3 (06:27→20:53)
[2024-02-15 07:06] LABS: Anion Gap 18 (12-20); Blood Urea Nitrogen 19 mg/dL (9-16); Calcium 8.7 mg/dL (8.4-10.2); Carbon Dioxide 18 mmol/L (22-29); Chloride 94 mmol/L (96-108); Creatinine Clr Calc Pharmacy 109.9; Estimated Glomerular Filt Rate > 60; Glucose Random 341 mg/dL (60-115); Potassium 3.8 mmol/L (3.3-5.1); Sodium 126 mmol/L (135-145)
[2024-02-15 07:07] LABS: Hematocrit 34.3 % (42.0-52.0); Hemoglobin 12.1 g/dl (14.0-18.0); Mean Corpuscular HGB Conc 35.3 g/dl (31.0-36.0); Mean Corpuscular Hemoglobin 30.5 pg (27.0-33.0); Mean Corpuscular Volume 86.4 fL (80.0-98.0); Mean Platelet Volume 10.3 fL (9.4-12.4); Platelet Count 268 X10*3/uL (160-400); Red Blood Count 3.97 X10*6/uL (4.60-5.80); Red Cell Distribution Width 12.9 % (11.0-16.0); White Blood Count 13.5 X10*3/uL (4.8-10.8)
[2024-02-15 07:53] LABS: Glucose, Whole Blood 320 mg/dL (60-115)
[2024-02-15 08:00] VITALS: BP 132/61; PULSE 85; RESP 16; TEMP 36.7; O2SAT 93
--- NOTE | 2024-02-15 08:29 | P.CONGS_ITS ---
History of Present Illness Consult details Consult date: 02/15/24 Requesting physician: Vania Smalls Narrative: 58-year-old male patient well known to service with history of hypertension, hyperlipidemia, type 2 diabetes, peripheral vascular disease, s/p left BKA, now with progressing right foot diabetic associated infection. The infection began as a heel ulcer which has now progressed to a new abscess located on the instep of the heel. He is uncertain how long this has been present. He reports abdominal pain with constipation for the past 6 days. This was felt to be possibly due to his antibiotics and pain medication. He was admitted to the hospitalist service for further management of both findings. This morning he reports no pain in the foot but does continue to have abdominal pain. He reports having a bowel movement last night but feels he still needs to go more. He denies any fever or chills. Admitting laboratories revealed WBC of 15.6, CRP of 24. Surgical consultation reveals requested for wound management. Review of Systems 2 Review of Systems: Yes all other systems are reviewed and are negative PMFSH Past Medical History Medical History Diabetes mellitus Peripheral neuropathy Hypertension Osteomyelitis of left foot Hypercholesterolemia Family History Family History Father History of hypertension Mother History of diabetes mellitus Surgical History Surgical History Status post cryoablation History of amputation of both great toes Social History Social History Household Members: Family Household Members Other:: Uncle Housing: House Do you presently have visiting nurse or other home services: No Alcohol intake: former Patient Tobacco Use Status: Current everyday Tobacco user Cigarette Packs Per Day: 0.5 Cigarettes Per Day: 10.0 Years Smoked: 35 Smoked in Last 30 Days: Yes Patient Interested in Nicotine Replacement: No Use of substances other than those prescribed or required for medical reasons: No Have you been hit, kicked, punched, or otherwise hurt by someone within the past year? If so, by whom?: No Do you feel safe in your current relationship?: No Is there a partner from a previous relationship who is making you feel unsafe now?: No Are you made to feel afraid or neglected: No Advance Directives: Yes Advance Directives Information Provided: No Advance Directives on File: No (wouldnt let me cont w/o a date in but not on file) Advance Directives Date on File: 02/14/24 Do you have a plan to hurt others: No Plan Recently lost weight without trying: Unsure Eating poorly because of decreased appetite: Yes Nutrition Risks: Poor intake 0-25% >4 days service: No Meds Allergies Allergy/AdvReac Type Severity Reaction Status Date / Time acetaminophen Allergy Mild Rash Verified 02/14/24 12:12 Active Medications: Current Medications Atorvastatin Calcium (Atorvastatin Calcium 20 Mg Tablet) 20 mg PO DAILY [facility] Calcium Carbonate (Calcium Carbonate 750 Mg Tab.Chew) 750 mg PO Q4H PRN PRN Reason: Heartburn Last Admin: 02/15/24 00:37 Dose: 750 mg Carvedilol (Carvedilol 6.25 Mg Tablet) 6.25 mg PO DAILY [facility]; Protocol Docusate Sodium (Docusate Sodium 100 Mg Capsule) 200 mg PO BEDTIME [facility] Last Admin: 02/14/24 21:25 Dose: 200 mg Enoxaparin Sodium (Enoxaparin Sodium 40 Mg/0.4 Ml Syringe) 40 mg SUBCUT Q24H [facility] Last Admin: 02/14/24 18:40 Dose: Not Given Glucose (Glucose Gel 15 Gm Gel..Gram.) 15 gm PO Q15M PRN; Protocol PRN Reason: per Hypoglycemia Standing Ord. Dextrose (D10) 250 mls @ 750 mls/hr IV Q15M PRN; Protocol PRN Reason: per Hypoglycemia Standing Ord. Vancomycin HCl 1,000 mg/ (Sodium Chloride) 270 mls @ 270 mls/hr IV Q12H [facility] Last Infusion: 02/15/24 02:47 Dose: Infused Cefepime HCl (Maxipime) 2 gm in 50 mls @ 100 mls/hr IV Q8H [facility] Last Infusion: 02/15/24 07:31 Dose: Infused Insulin Human Lispro (Insulin Lispro 100 Unit/Ml 3 Ml Vial) 0 unit SUBCUT QIDACHS [facility]; Protocol Last Admin: 02/14/24 21:26 Dose: 8 unit Ketorolac Tromethamine (Ketorolac Tromethamine 15 Mg/Ml Vial) 15 mg IVPUSH Q6H PRN PRN Reason: Pain, Moderate(Pain Scale 4-6) Magnesium Hydroxide (Milk Of Magnesia 30 Ml Oral.Susp) 30 ml PO DAILY PRN PRN Reason: Constipation Magnesium Hydroxide (Milk Of Magnesia 30 Ml Oral.Susp) 30 ml PO BEDTIME PRN PRN Reason: Constipation Melatonin (Melatonin 3 Mg Tablet) 6 mg PO BEDTIME PRN PRN Reason: Insomnia Ondansetron HCl (Ondansetron Hcl 4 Mg/2 Ml Vial) 4 mg IVPUSH Q8H PRN PRN Reason: Nausea and Vomiting Oxycodone HCl (Oxycodone Hcl Immed Release 5 Mg Tablet) 5 mg PO Q6H PRN PRN Reason: Pain, Severe (Pain Scale 7-10) Last Admin: 02/15/24 06:27 Dose: 5 mg Pharmacy Consult (Consult Rx Vancomycin Dosing) 1 each MISCELLANE DAILY PRN PRN Reason: Consult order Polyethylene Glycol (Polyethylene Glycol 3350 17 Gm Powd.Pack) 17 gm PO DAILY [facility] Sodium Chloride (0.9 % Sodium Chloride Flush 3 Ml Syringe) 3 ml IVFLUSH QSHIFT [facility] Last Admin: 02/15/24 00:44 Dose: Not Given Home Medications ?Medication ?Instructions ?Recorded ?Confirmed ?Last Taken ?Type atorvastatin 20 mg tablet 20 mg PO DAILY 11/30/19 02/14/24 02/14/24 History blood sugar diagnostic (FreeStyle #10 ea 11/30/19 02/01/24 Unknown History Lite Strips) insulin lispro 100 unit/mL See Protocol subcut TIDAC 11/30/19 02/14/24 02/14/24 History subcutaneous pen (Humalog KwikPen (U-100) Insulin) lancets 28 gauge (FreeStyle #100 ea 11/30/19 02/01/24 Unknown History Lancets) pen needle, diabetic 32 gauge x #50 ea 11/30/19 02/01/24 Unknown History (BD Ultra-Fine Sarah Pen Needle) amlodipine 10 mg tablet 10 mg PO DAILY 04/15/21 02/14/24 02/14/24 History carvedilol 6.25 mg tablet 6.25 mg PO DAILY 04/15/21 02/14/24 02/14/24 History lancets 33 gauge (TRUEplus Lancets) #100 ea 04/15/21 02/01/24 Unknown History lisinopril 40 mg tablet 40 mg PO DAILY 04/15/21 02/14/24 02/14/24 History hydrochlorothiazide 12.5 mg capsule 12.5 mg PO DAILY 10/30/23 02/14/24 02/14/24 History insulin glargine 100 unit/mL (3 36 unit subcut BEDTIME 10/30/23 02/14/24 02/13/24 History mL) subcutaneous pen (Basaglar KwikPen U-100 Insulin) Physical Exam 2 Vital Signs: Vital Signs: Last Vital Signs Temp 98.0 F 02/15/24 08:00 Pulse 85 02/15/24 08:00 Resp 16 02/15/24 08:00 BP 132/61 02/15/24 08:00 Pulse Ox 93 02/15/24 08:00 O2 Del Method Room Air 02/15/24 08:00 BMI result Body Mass Index 28.5 Const: General: no acute distress Nutritional Appearance: thin O rientation/consciousness: patient oriented x3 Limitations: other limitations (Left BKA) HEENT: Head: Yes normocephalic and Yes atraumatic Resp: Effort & Inspection: normal respiratory effort GI: Other: Mildly distended, no peritoneal signs. Neuro: General: patient oriented x3 Extrem: Other: Left BKA, right heel ulcer measuring approximately 2 cm in diameter. New ulceration noted along the medial surface of the heel measuring at least 4 x 3 cm. There is fluctuance and desquamation of the overlying skin. Using a scissors and forceps, the desquamated skin was excised. In the central portion of the wound an area of fluctuance was identified and incised with the scissors. A purulent collection was drained and irrigated. All devitalized tissue was excised with the scissors for a depth of 1 cm including skin and subcutaneous tissue. No bone was noted to be exposed from the medial ulcer however the plantar heel ulcer does extend to calcaneus. Findings are suggestive of osteomyelitis involving the calcaneus despite the x-ray findings. Ankle/foot/toe images: 1. Medial heel ulcer measuring 4 x 3 x 1 cm. 2. Plantar heel ulcer measuring 2 cm lamar meter extending to calcaneus Results Labs 02/15/24 06:10 02/15/24 06:10 Labs: Abnormal lab results 02/14/24 02/14/24 02/14/24 Range/Units 12:09 13:37 18:35 WBC 15.6 H (4.8-10.8) X10*3/uL RBC 4.16 L (4.60-5.80) X10*6/uL Hgb 12.9 L (14.0-18.0) g/dl Hct 36.0 L (42.0-52.0) % Immature Gran % (Auto) 0.6 H (0.0-0.4) % Neut % (Auto) 84.4 H (45-73) % Lymph % (Auto) 6.1 L (20-40) % Lymph # (Auto) 1.0 L (1.2-4.9) X10*3/uL [place] # (Auto) 1.3 H (0.1-1.2) X10*3/uL Abs Immat Gran (auto) 0.09 H (0.00-0.03) X10*3/uL Absolute Neuts (auto) 13.2 H (2.0-8.3) x10*3/uL ESR 81 H (0-15) MM/HR Sodium 129 L (135-145) mmol/L Chloride 93 L (96-108) mmol/L Carbon Dioxide (22-29) mmol/L BUN 19 H (9-16) mg/dL POC Glucose 201 H 230 H (60-115) mg/dL Random Glucose 219 H (60-115) mg/dL C-Reactive Protein 24.00 H (< or = 0.50) mg/dL Albumin 3.1 L (3.5-5.0) g/dL Lipase 6 L (8-78) U/L 02/14/24 02/15/24 02/15/24 Range/Units 21:08 06:10 07:45 WBC 13.5 H (4.8-10.8) X10*3/uL RBC 3.97 L (4.60-5.80) X10*6/uL Hgb 12.1 L (14.0-18.0) g/dl Hct 34.3 L (42.0-52.0) % Immature Gran % (Auto) (0.0-0.4) % Neut % (Auto) (45-73) % Lymph % (Auto) (20-40) % Lymph # (Auto) (1.2-4.9) X10*3/uL [place] # (Auto) (0.1-1.2) X10*3/uL Abs Immat Gran (auto) (0.00-0.03) X10*3/uL Absolute Neuts (auto) (2.0-8.3) x10*3/uL ESR (0-15) MM/HR Sodium 126 L (135-145) mmol/L Chloride 94 L (96-108) mmol/L Carbon Dioxide 18 L (22-29) mmol/L BUN 19 H (9-16) mg/dL POC Glucose 317 H 320 H (60-115) mg/dL Random Glucose 341 H (60-115) mg/dL C-Reactive Protein (< or = 0.50) mg/dL Albumin (3.5-5.0) g/dL Lipase (8-78) U/L Short CBC 02/14/24 02/15/24 Range/Units 13:37 06:10 WBC 15.6 H 13.5 H (4.8-10.8) X10*3/uL Hgb 12.9 L 12.1 L (14.0-18.0) g/dl Hct 36.0 L 34.3 L (42.0-52.0) % Plt Count 250 268 (160-400) X10*3/uL BMP 02/14/24 02/15/24 13:37 06:10 Sodium 129 L 126 L Potassium 3.8 3.8 Chloride 93 L 94 L Carbon Dioxide 26 18 L BUN 19 H 19 H Creatinine 1.00 0.93 Calcium 8.9 8.7 Liver Function 02/14/24 Range/Units 13:37 Total Bilirubin 0.8 (0.0-1.0) mg/dL Direct Bilirubin 0.3 (0.0-0.5) mg/dL AST 23 (5-37) U/L ALT 18 (0-40) U/L Alkaline Phosphatase 86 (39-117) U/L Albumin 3.1 L (3.5-5.0) g/dL All other labs normal. Assessment and Plan (1) Abscess of right foot excluding toes: Status: Acute Plan 58-year-old male patient with history of diabetes, hypertension, peripheral vascular disease, status post left BKA now with progression of his right foot ulcer with a new abscess involving the medial heel. This was debrided as noted above. Wounds were packed with wet to dry dressings and covered with fluff gauze and Kerlix. Recommend wound care nurse evaluation. Osteomyelitis of the calcaneus is suspected. Patient is at high risk for limb loss. Procedures Date of Service Date of Service: 02/15/24
[2024-02-15] MEDS: Insulin Lispro 100 UNIT/ML 3 ML VIAL SUBCUT ×4 (08:30→20:51)
[2024-02-15] MEDS: carvediloL 6.25 MG TABLET PO (08:31)
[2024-02-15] MEDS: polyethylene glycoL 3350 17 GM POWD.PACK PO (08:31)
[2024-02-15] MEDS: 0.9 % Sodium Chloride Flush 3 ML SYRINGE IVFLUSH (08:31)
[2024-02-15] MEDS: Atorvastatin Calcium 20 MG TABLET PO (08:31)
[2024-02-15] MEDS: Ketorolac Tromethamine 15 MG/ML VIAL IVPUSH (08:31)
--- NOTE | 2024-02-15 09:56 | MHC.CM.PN ---
IMM 02/15/24, EMR REVIEWED, PT W/R FOOT CELLULITIS/ABSCESS/CONSTIPATION, CM MET W/PT WHO REPORTS HE LIVES W/ (S.O. OF OVER 10YRS), USES A LLE PROSTHESIS AND HAS BORROWED AN ELECTRIC WC HE WAS TOLD HE NEEDS TO STAY OFF HIS RIGHT FOOT, PT ASKING ABOUT [facility] AND TASK TO BE SENT, PT REPORTS HE NEEDS ASSISTANCE W/CLEANING NEITHER HE NOR HIS S.O. CAN CLEAN RIGHT NOW SHE IS RECOVERING FROM AN CA. PT'S GOALS IS FOR DC HOME. PT VERIFIES PCP ON FILE IS CORRECT AND HAS BEEN EDUCATED ON AND COMPLETED A HCP NAMING HIS S.O. JALEN MARTA # ON FILE, COPY UPLOADED TO [facility] AND PLACED IN CHART.
--- NOTE | 2024-02-15 11:14 | MHC.RECOVRN ---
AUDIT-C Brief Intervention Pt had positive screen for unhealthy alcohol use on admission, subsequently met with t/w to discuss alcohol use and recovery supports/options. This magnetic tape typewriter operator met with patient to discuss current alcohol use and concerns related to increased risk of alcohol related problems.? Pt reports a 6 pack of beer daily plus 1/2 pint Fireball x years. Pt does not disclose how/if alcohol use has impacted health, pt irritable and states people need to stop trying to talk to me about this, don't use the word 'alcohol' anymore. Withdrawal History: denies history seizures Treatment History: denies history of treatment Supports:? Discussed risk reduction strategies including drinking below the recommended limit. Provided pt with written resources including information on inpatient and outpatient treatment, LULA, harm reduction, and recovery coaching. Pt declines support at this time, denies questions or concerns. Pt provided with t/w contact information if questions or concerns arise. ?
[2024-02-15] MEDS: vancomycin HCL 1,000 MG in 0.9 % Sodium Chloride 250 ML 270 MG IV ×2 (11:26→22:34)
[2024-02-15] MEDS: 0.9 % Sodium Chloride 1,000 ML 80 ML IVCONT (11:26)
[2024-02-15 11:40] LABS: Glucose, Whole Blood 442 mg/dL (60-115)
[2024-02-15 12:03] VITALS: BP 137/59; PULSE 85; RESP 16; TEMP 37; O2SAT 96
--- NOTE | 2024-02-15 12:08 | HO.WOUND ---
Wound Consult: Attempted 58yr old?Male admitted to [facility] on 02/14/24 - See progress notes and H&P for detailed history.? Wound consult placed for Chronic Right Foot Diabetic wound.? Chart review reveals patient follows with Dr. De Leon in the past and was seen by him earlier today and bedside debridement was performed. Wet to dry dressing placed by Dr. Mchugh with request for wound care nurse consult with recommendations. Given bedside debridement performed earlier today will assess patient tomorrow for topical recommendations.
--- NOTE | 2024-02-15 14:36 | P.PNIM_ITS ---
Subjective Subjective Date of Service: 02/16/24 Interval History: Being followed for right foot ulcer/abscess Patient denies fever, no chills, no foot pain had a bowel movement still Will mild abdominal discomfort. Denies fever, no chills, underwent debridement at bedside by General surgery dressing applied. Review of Systems All other system reviewed and are negative Physical Exam 2 Vital Signs: Vital Signs: Last Vital Signs Temp 98.6 F 02/15/24 12:03 Pulse 85 02/15/24 12:03 Resp 16 02/15/24 12:03 BP 137/59 L 02/15/24 12:03 Pulse Ox 96 02/15/24 12:03 O2 Del Method Room Air 02/15/24 12:03 BMI result Body Mass Index 28.5 Const: Other: General resting comfortably in no acute distress. Moist mucous membrane Neck no JVD. CVS regular rate rhythm, Respiratory lungs clear to auscultation, no respiratory distress, no wheeze, no rhonchi. Gastrointestinal abdomen soft, non tender, bowel sounds audible, no guarding , no rigidity. Extremities left BKA Right heel dressing applied after debridement by General surgery. No saturation noted Neuro non focal Psych appropriate affect Objective Data Active Medications Atorvastatin Calcium (Atorvastatin Calcium 20 Mg Tablet) 20 mg PO DAILY [facility] Last Admin: 02/15/24 08:31 Dose: 20 mg Documented By: SERG Calcium Carbonate (Calcium Carbonate 750 Mg Tab.Chew) 750 mg PO Q4H PRN PRN Reason: Heartburn Last Admin: 02/15/24 00:37 Dose: 750 mg Documented By: FABIANA Carvedilol (Carvedilol 6.25 Mg Tablet) 6.25 mg PO DAILY [facility]; Protocol Last Admin: 02/15/24 08:31 Dose: 6.25 mg Documented By: SERG Docusate Sodium (Docusate Sodium 100 Mg Capsule) 200 mg PO BEDTIME [facility] Last Admin: 02/14/24 21:25 Dose: 200 mg Documented By: JOSE Enoxaparin Sodium (Enoxaparin Sodium 40 Mg/0.4 Ml Syringe) 40 mg SUBCUT Q24H [facility] Last Admin: 02/14/24 18:40 Dose: Not Given Documented By: CATHIE Non-Admin Reason: Patient Refused Glucose (Glucose Gel 15 Gm Gel..Gram.) 15 gm PO Q15M PRN; Protocol PRN Reason: per Hypoglycemia Standing Ord. Dextrose (D10) 250 mls @ 750 mls/hr IV Q15M PRN; Protocol PRN Reason: per Hypoglycemia Standing Ord. Vancomycin HCl 1,000 mg/ (Sodium Chloride) 270 mls @ 270 mls/hr IV Q12H [facility] Last Infusion: 02/15/24 12:26 Dose: Infused Documented By: SERG Cefepime HCl (Maxipime) 2 gm in 50 mls @ 100 mls/hr IV Q8H [facility] Last Infusion: 02/15/24 07:31 Dose: Infused Documented By: SERG Sodium Chloride (Ns) 1,000 mls @ 80 mls/hr IVCONT .[id number] [facility] Last Admin: 02/15/24 11:26 Dose: 80 mls/hr Documented By: SERG Insulin Human Lispro (Insulin Lispro 100 Unit/Ml 3 Ml Vial) 0 unit SUBCUT QIDACHS [facility]; Protocol Last Admin: 02/15/24 11:36 Dose: 14 unit Documented By: SERG Comments: per MD Smalls, ordered to give 14 units of lispro Ketorolac Tromethamine (Ketorolac Tromethamine 15 Mg/Ml Vial) 15 mg IVPUSH Q6H PRN PRN Reason: Pain, Moderate(Pain Scale 4-6) Last Admin: 02/15/24 08:31 Dose: 15 mg Documented By: SERG Magnesium Hydroxide (Milk Of Magnesia 30 Ml Oral.Susp) 30 ml PO DAILY PRN PRN Reason: Constipation Magnesium Hydroxide (Milk Of Magnesia 30 Ml Oral.Susp) 30 ml PO BEDTIME PRN PRN Reason: Constipation Melatonin (Melatonin 3 Mg Tablet) 6 mg PO BEDTIME PRN PRN Reason: Insomnia Ondansetron HCl (Ondansetron Hcl 4 Mg/2 Ml Vial) 4 mg IVPUSH Q8H PRN PRN Reason: Nausea and Vomiting Oxycodone HCl (Oxycodone Hcl Immed Release 5 Mg Tablet) 5 mg PO Q6H PRN PRN Reason: Pain, Severe (Pain Scale 7-10) Last Admin: 02/15/24 06:27 Dose: 5 mg Documented By: FABIANA Pharmacy Consult (Consult Rx Vancomycin Dosing) 1 each MISCELLANE DAILY PRN PRN Reason: Consult order Polyethylene Glycol (Polyethylene Glycol 3350 17 Gm Powd.Pack) 17 gm PO DAILY [facility] Last Admin: 02/15/24 08:31 Dose: 17 gm Documented By: SERG Sodium Chloride (0.9 % Sodium Chloride Flush 3 Ml Syringe) 3 ml IVFLUSH QSHIFT [facility] Last Admin: 02/15/24 08:31 Dose: 3 ml Documented By: SERG Labs 02/15/24 06:10 02/16/24 06:16 Labs: Laboratory Results - last 24 hr 02/14/24 02/14/24 02/15/24 18:35 21:08 04:00 MCV MCH MCHC RDW Plt Count MPV Absolute Nucleated RBC Nucleated RBC % (auto) Anion Gap Estim Creat Clear Calc Estimated GFR POC Glucose 230 H 317 H Random Glucose Calcium Urine Osmolality 610 Ur Random Sodium < 20.0 02/15/24 02/15/24 02/15/24 06:10 07:45 11:24 MCV 86.4 MCH 30.5 MCHC 35.3 RDW 12.9 Plt Count 268 MPV 10.3 Absolute Nucleated RBC 0.000 Nucleated RBC % (auto) 0.0 Anion Gap 18 Estim Creat Clear Calc 109.9 Estimated GFR > 60 POC Glucose 320 H 442 H* Random Glucose 341 H Calcium 8.7 Urine Osmolality Ur Random Sodium Assessment and Plan (1) Abscess of right foot excluding toes: Status: Acute (2) Constipation: Status: Acute (3) Cellulitis: Status: Acute (4) Ulcer of right heel: Status: Acute (5) Hypertension: Status: Acute (6) Hypercholesterolemia: Status: Acute Plan 58-year-old male with pertinent history of insulin-dependent diabetes mellitus with neuropathy, hypertension, mixed hyperlipidemia, peripheral vascular disease status post left BKA and right toe amputations presents to the emergency department for evaluation of foot pain. # Constipation due to narcotics had 1 bowel movement last night, will continue stool softeners/MiraLax/lactulose. #. Right foot diabetic infected ulcer with purulent cellulitis/abscess: Continue IV cefepime and vancomycin D2. No sepsis, Seen by General surgery underwent debridement, concern for osteomyelitis of calcaneus, will obtain MRI foot and ID consult. Recently discharged from [facility] after requiring treatment for right foot wound, MRI at that time showed no acute osteomyelitis patient was discharged home on antibiotics and VNA services # acute mild hyponatremia sodium 129 to 126 likely due to hydrochlorothiazide/normal urine osmolality and urinary sodium <20 serum osmolality not checked Hydrochlorothiazide discontinued, place on fluid restrictions, follow BMP. #. Insulin-dependent diabetes mellitus with hyperglycemia and neuropathy: Diabetic diet/insulin sliding scale, continue Lantus 30 units at bedtime home dose Lantus 36 units #. Hypertension: Soft blood pressure will hold lisinopril, Norvasc and hydrochlorothiazide, Continue Coreg and follow BP #. Mixed hyperlipidemia: Continue Lipitor 20 mg. DVT prophylaxis: Lovenox Full code Patient will require continued inpatient stay for IV antibiotics (as above), expert consultation, which is not possible in a lesser acute setting. Quality Stroke Does the patient have a stroke diagnosis?: No VTE Prior VTE?: No VTE Risk Level:: Medical - moderate - high VTE Device Contraindication: Treatment Not Indicated VTE Drug Contraindication: N/A - Med Ordered
--- NOTE | 2024-02-15 15:17 | W.PM.IDCN ---
History of Present Illness Data of Consult Service Date: 02/15/24 Requesting physician: Vania Smalls Primary Care Provider: MD MEKA Brown Reason for consult: right heel wound He presents with RLE redness and swelling with blister right heel. He has had chronic RLE wound heel for severa months and recently given Levaquin and Flagyl.He gets VNA at home. He came in initially through EMS due to constipation. He has XR foot 02/13 negative. He had MRI 10/29 of foot which was negative. He reports Dr Salas debrided this am and narcotics likely constipation cause. He has no fever or chills. Review of Systems Review of Systems: Yes all other systems are reviewed and are negative PMFSH Past Medical History Medical History Diabetes mellitus Peripheral neuropathy Hypertension Osteomyelitis of left foot Hypercholesterolemia Family History Family History Father History of hypertension Mother History of diabetes mellitus Family history: reviewed and not pertinent Surgical History Surgical History Status post cryoablation History of amputation of both great toes Social History Social History Household Members: Family Household Members Other:: Uncle Housing: House Do you presently have visiting nurse or other home services: No Alcohol intake: former Patient Tobacco Use Status: Current everyday Tobacco user Cigarette Packs Per Day: 0.5 Cigarettes Per Day: 10.0 Years Smoked: 35 Smoked in Last 30 Days: Yes Patient Interested in Nicotine Replacement: No Use of substances other than those prescribed or required for medical reasons: No Currently Displaying Signs/Symptoms of Drug Intoxication Withdrawal: No Have you been hit, kicked, punched, or otherwise hurt by someone within the past year? If so, by whom?: No Do you feel safe in your current relationship?: No Is there a partner from a previous relationship who is making you feel unsafe now?: No Are you made to feel afraid or neglected: No Advance Directives: Yes Advance Directives Information Provided: No Advance Directives on File: No (wouldnt let me cont w/o a date in but not on file) Advance Directives Date on File: 02/14/24 Do you have a plan to hurt others: No Plan Recently lost weight without trying: Unsure Eating poorly because of decreased appetite: Yes Nutrition Risks: Poor intake 0-25% >4 days service: No Meds Allergies Allergy/AdvReac Type Severity Reaction Status Date / Time acetaminophen Allergy Mild Rash Verified 02/14/24 12:12 Active Medications: Current Medications Atorvastatin Calcium (Atorvastatin Calcium 20 Mg Tablet) 20 mg PO DAILY [facility] Last Admin: 02/15/24 08:31 Dose: 20 mg Calcium Carbonate (Calcium Carbonate 750 Mg Tab.Chew) 750 mg PO Q4H PRN PRN Reason: Heartburn Last Admin: 02/15/24 00:37 Dose: 750 mg Carvedilol (Carvedilol 6.25 Mg Tablet) 6.25 mg PO DAILY [facility]; Protocol Last Admin: 02/15/24 08:31 Dose: 6.25 mg Docusate Sodium (Docusate Sodium 100 Mg Capsule) 200 mg PO BEDTIME [facility] Last Admin: 02/14/24 21:25 Dose: 200 mg Enoxaparin Sodium (Enoxaparin Sodium 40 Mg/0.4 Ml Syringe) 40 mg SUBCUT Q24H [facility] Last Admin: 02/14/24 18:40 Dose: Not Given Glucose (Glucose Gel 15 Gm Gel..Gram.) 15 gm PO Q15M PRN; Protocol PRN Reason: per Hypoglycemia Standing Ord. Dextrose (D10) 250 mls @ 750 mls/hr IV Q15M PRN; Protocol PRN Reason: per Hypoglycemia Standing Ord. Vancomycin HCl 1,000 mg/ (Sodium Chloride) 270 mls @ 270 mls/hr IV Q12H [facility] Last Infusion: 02/15/24 12:26 Dose: Infused Cefepime HCl (Maxipime) 2 gm in 50 mls @ 100 mls/hr IV Q8H [facility] Last Admin: 02/15/24 14:37 Dose: 100 mls/hr Sodium Chloride (Ns) 1,000 mls @ 80 mls/hr IVCONT .[id number] [facility] Last Admin: 02/15/24 11:26 Dose: 80 mls/hr Insulin Glargine (Insulin Glargine,Hum.Rec.Anlog 100 Unit/Ml 10 Ml Vial) 30 unit SUBCUT BEDTIME [facility] Insulin Human Lispro (Insulin Lispro 100 Unit/Ml 3 Ml Vial) 0 unit SUBCUT QIDACHS [facility]; Protocol Last Admin: 02/15/24 11:36 Dose: 14 unit Ketorolac Tromethamine (Ketorolac Tromethamine 15 Mg/Ml Vial) 15 mg IVPUSH Q6H PRN PRN Reason: Pain, Moderate(Pain Scale 4-6) Last Admin: 02/15/24 08:31 Dose: 15 mg Magnesium Hydroxide (Milk Of Magnesia 30 Ml Oral.Susp) 30 ml PO DAILY PRN PRN Reason: Constipation Magnesium Hydroxide (Milk Of Magnesia 30 Ml Oral.Susp) 30 ml PO BEDTIME PRN PRN Reason: Constipation Melatonin (Melatonin 3 Mg Tablet) 6 mg PO BEDTIME PRN PRN Reason: Insomnia Ondansetron HCl (Ondansetron Hcl 4 Mg/2 Ml Vial) 4 mg IVPUSH Q8H PRN PRN Reason: Nausea and Vomiting Oxycodone HCl (Oxycodone Hcl Immed Release 5 Mg Tablet) 5 mg PO Q6H PRN PRN Reason: Pain, Severe (Pain Scale 7-10) Last Admin: 02/15/24 14:43 Dose: 5 mg Pharmacy Consult (Consult Rx Vancomycin Dosing) 1 each MISCELLANE DAILY PRN PRN Reason: Consult order Polyethylene Glycol (Polyethylene Glycol 3350 17 Gm Powd.Pack) 17 gm PO DAILY [facility] Last Admin: 02/15/24 08:31 Dose: 17 gm Sodium Chloride (0.9 % Sodium Chloride Flush 3 Ml Syringe) 3 ml IVFLUSH QSHIFT [facility] Last Admin: 02/15/24 08:31 Dose: 3 ml Home Medications ?Medication ?Instructions ?Recorded ?Confirmed ?Last Taken ?Type atorvastatin 20 mg tablet 20 mg PO DAILY 11/30/19 02/14/24 02/14/24 History blood sugar diagnostic (FreeStyle #10 ea 11/30/19 02/01/24 Unknown History Lite Strips) insulin lispro 100 unit/mL See Protocol subcut TIDAC 11/30/19 02/14/24 02/14/24 History subcutaneous pen (Humalog KwikPen (U-100) Insulin) lancets 28 gauge (FreeStyle #100 ea 11/30/19 02/01/24 Unknown History Lancets) pen needle, diabetic 32 gauge x #50 ea 11/30/19 02/01/24 Unknown History (BD Ultra-Fine Sarah Pen Needle) amlodipine 10 mg tablet 10 mg PO DAILY 04/15/21 02/14/24 02/14/24 History carvedilol 6.25 mg tablet 6.25 mg PO DAILY 04/15/21 02/14/24 02/14/24 History lancets 33 gauge (TRUEplus Lancets) #100 ea 04/15/21 02/01/24 Unknown History lisinopril 40 mg tablet 40 mg PO DAILY 04/15/21 02/14/24 02/14/24 History hydrochlorothiazide 12.5 mg capsule 12.5 mg PO DAILY 10/30/23 02/14/24 02/14/24 History insulin glargine 100 unit/mL (3 36 unit subcut BEDTIME 10/30/23 02/14/24 02/13/24 History mL) subcutaneous pen (Basaglar KwikPen U-100 Insulin) Physical Exam Vital Signs: Vital Signs: Last Vital Signs Temp 98.6 F 02/15/24 12:03 Pulse 85 02/15/24 12:03 Resp 16 02/15/24 12:03 BP 137/59 L 02/15/24 12:03 Pulse Ox 96 02/15/24 12:03 O2 Del Method Room Air 02/15/24 12:03 BMI result Body Mass Index 28.5 Const: General: cooperative HEENT: Head: Yes normal to inspection Face and sinus: Yes normal facial exam Mouth: Normal oral and palatal mucosa present Teeth and gingiva: dentition normal Eyes: General: appearance normal, both eyes and all related structures Pupils: Equal, round and reactive pupils present Resp: Effort & Inspection: normal respiratory effort Cardio: Rate: regular rate Rhythm: regular rhythm GI: Palpation (GI): Soft to palpation and nontender : General: Yes no CVA tenderness Back/Spine/Pelvis: Back: no CVA tenderness Skin: General skin exam: no rashes or lesions noted Neuro: General: moves all extremities Cranial nerves: Yes Equal, round and reactive pupils present Extrem: Other: rightheel post debridement ,bleeding,missing right great toe due to infection,left BKA Psych: Appearance: grossly normal Results Labs 02/15/24 06:10 02/15/24 06:10 Labs: Short CBC 02/15/24 Range/Units 06:10 WBC 13.5 H (4.8-10.8) X10*3/uL Hgb 12.1 L (14.0-18.0) g/dl Hct 34.3 L (42.0-52.0) % Plt Count 268 (160-400) X10*3/uL BMP 02/15/24 06:10 Sodium 126 L Potassium 3.8 Chloride 94 L Carbon Dioxide 18 L BUN 19 H Creatinine 0.93 Calcium 8.7 Assessment and Plan (1) Abscess of right foot excluding toes: Status: Acute (2) Cellulitis: Status: Acute (3) Ulcer of right heel: Qualifiers: Non-pressure ulcer stage: with fat layer exposed Qualified Code(s): L97.412 - 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 There is possibly pressure ulcer as well. Would continue Vancomycin and Cefepime for now. Await MRI. If OM Daptomycin for six weeks likely with weekly CK and creatinine.
[2024-02-15 15:25] VITALS: BP 139/63; PULSE 83; RESP 20; TEMP 37.3; O2SAT 93
[2024-02-15 16:46] LABS: Glucose, Whole Blood 320 mg/dL (60-115)
[2024-02-15] MEDS: gadobutroL 10 ML VIAL IVPUSH (17:40)
[2024-02-15 20:00] VITALS: BP 131/61; PULSE 83; RESP 16; TEMP 37.1; O2SAT 97
[2024-02-15 20:35] LABS: Glucose, Whole Blood 354 mg/dL (60-115)
[2024-02-15] MEDS: Insulin Glargine,Hum.rec.anlog 100 UNIT/ML 10 ML VIAL 30 UNIT SUBCUT (20:51)
[2024-02-15] MEDS: Docusate Sodium 100 MG CAPSULE 200 MG PO (20:51)
[2024-02-15 21:36] LABS: Vancomycin Random 12.8 mcg/mL (15-20)
[2024-02-16 04:00] VITALS: BP 124/64; PULSE 78; RESP 18; TEMP 37.6; O2SAT 93
[2024-02-16] MEDS: oxyCODONE HCl Immed Release 5 MG TABLET PO ×2 (04:15→21:25)
[2024-02-16] MEDS: cefEPime HCl/D5W 2 GM/50 ML PIGGYBACK IV ×3 (06:13→21:20)
[2024-02-16 07:10] LABS: Creatinine Clr Calc Pharmacy 138.1; Estimated Glomerular Filt Rate > 60
[2024-02-16 07:43] LABS: Glucose, Whole Blood 292 mg/dL (60-115)
[2024-02-16 07:46] VITALS: BP 134/65; PULSE 80; RESP 16; TEMP 36.9; O2SAT 94
[2024-02-16 07:49] LABS: Anion Gap 15 (12-20); Carbon Dioxide 22 mmol/L (22-29); Chloride 94 mmol/L (96-108); Potassium 3.9 mmol/L (3.3-5.1); Sodium 127 mmol/L (135-145)
[2024-02-16] MEDS: Atorvastatin Calcium 20 MG TABLET PO (07:52)
[2024-02-16] MEDS: Insulin Lispro 100 UNIT/ML 3 ML VIAL SUBCUT ×4 (07:53→21:19)
[2024-02-16] MEDS: carvediloL 6.25 MG TABLET PO (07:53)
[2024-02-16] MEDS: polyethylene glycoL 3350 17 GM POWD.PACK PO (07:53)
[2024-02-16] MEDS: 0.9 % Sodium Chloride Flush 3 ML SYRINGE IVFLUSH ×2 (07:53→23:32)
[2024-02-16] MEDS: Ketorolac Tromethamine 15 MG/ML VIAL IVPUSH (07:53)
--- NOTE | 2024-02-16 10:08 | PM.PNGS ---
Subjective Subjective Date of Service: 02/16/24 Interval history: Patient reports feeling sleepy. Physical Exam Vital Signs: Vital Signs: Last Vital Signs Temp 98.4 F 02/16/24 07:46 Pulse 80 02/16/24 07:46 Resp 16 02/16/24 07:46 BP 134/65 02/16/24 07:46 Pulse Ox 94 02/16/24 07:46 O2 Del Method Room Air 02/16/24 07:46 BMI result Body Mass Index 28.5 Const: Nutritional Appearance: thin Orientation/consciousness: patient oriented x3 Resp: Effort & Inspection: normal respiratory effort Neuro: General: patient oriented x3 Extrem: Other: Right foot dressings changed. Gangrenous changes noted in the medial aspect, area measuring 2 x 3 cm excised skin and subcutaneous tissue. Abscess cavity opened, extending down to calcaneus. Wounds redressed with packing and dry sterile dressings. Objective Data Active Medications Atorvastatin Calcium (Atorvastatin Calcium 20 Mg Tablet) 20 mg PO DAILY [facility] Last Admin: 02/16/24 07:52 Dose: 20 mg Documented By: SERG Calcium Carbonate (Calcium Carbonate 750 Mg Tab.Chew) 750 mg PO Q4H PRN PRN Reason: Heartburn Last Admin: 02/15/24 00:37 Dose: 750 mg Documented By: FABIANA Carvedilol (Carvedilol 6.25 Mg Tablet) 6.25 mg PO DAILY [facility]; Protocol Last Admin: 02/16/24 07:53 Dose: 6.25 mg Documented By: SERG Docusate Sodium (Docusate Sodium 100 Mg Capsule) 200 mg PO BEDTIME [facility] Last Admin: 02/15/24 20:51 Dose: 200 mg Documented By: FABIANA Enoxaparin Sodium (Enoxaparin Sodium 40 Mg/0.4 Ml Syringe) 40 mg SUBCUT Q24H [facility] Last Admin: 02/15/24 16:53 Dose: Not Given Documented By: SERG Non-Admin Reason: Patient Refused Glucose (Glucose Gel 15 Gm Gel..Gram.) 15 gm PO Q15M PRN; Protocol PRN Reason: per Hypoglycemia Standing Ord. Dextrose (D10) 250 mls @ 750 mls/hr IV Q15M PRN; Protocol PRN Reason: per Hypoglycemia Standing Ord. Vancomycin HCl 1,000 mg/ (Sodium Chloride) 270 mls @ 270 mls/hr IV Q12H [facility] Last Infusion: 02/15/24 23:57 Dose: Infused Documented By: FABIANA Cefepime HCl (Maxipime) 2 gm in 50 mls @ 100 mls/hr IV Q8H [facility] Last Infusion: 02/16/24 07:24 Dose: Infused Documented By: SERG Insulin Glargine (Insulin Glargine,Hum.Rec.Anlog 100 Unit/Ml 10 Ml Vial) 30 unit SUBCUT BEDTIME [facility] Last Admin: 02/15/24 20:51 Dose: 30 unit Documented By: FABIANA Insulin Human Lispro (Insulin Lispro 100 Unit/Ml 3 Ml Vial) 0 unit SUBCUT QIDACHS [facility]; Protocol Last Admin: 02/16/24 07:53 Dose: 6 unit Documented By: SERG Ketorolac Tromethamine (Ketorolac Tromethamine 15 Mg/Ml Vial) 15 mg IVPUSH Q6H PRN PRN Reason: Pain, Moderate(Pain Scale 4-6) Last Admin: 02/16/24 07:53 Dose: 15 mg Documented By: SERG Magnesium Hydroxide (Milk Of Magnesia 30 Ml Oral.Susp) 30 ml PO DAILY PRN PRN Reason: Constipation Magnesium Hydroxide (Milk Of Magnesia 30 Ml Oral.Susp) 30 ml PO BEDTIME PRN PRN Reason: Constipation Melatonin (Melatonin 3 Mg Tablet) 6 mg PO BEDTIME PRN PRN Reason: Insomnia Ondansetron HCl (Ondansetron Hcl 4 Mg/2 Ml Vial) 4 mg IVPUSH Q8H PRN PRN Reason: Nausea and Vomiting Oxycodone HCl (Oxycodone Hcl Immed Release 5 Mg Tablet) 5 mg PO Q6H PRN PRN Reason: Pain, Severe (Pain Scale 7-10) Last Admin: 02/16/24 04:15 Dose: 5 mg Documented By: FABIANA Pharmacy Consult (Consult Rx Vancomycin Dosing) 1 each MISCELLANE DAILY PRN PRN Reason: Consult order Polyethylene Glycol (Polyethylene Glycol 3350 17 Gm Powd.Pack) 17 gm PO DAILY [facility] Last Admin: 02/16/24 07:53 Dose: 17 gm Documented By: SERG Sodium Chloride (0.9 % Sodium Chloride Flush 3 Ml Syringe) [facility] Last Admin: 02/16/24 07:53 Dose: 3 ml Documented By: SERG Labs 02/15/24 06:10 02/16/24 06:16 Labs: Laboratory Results - last 24 hr 02/15/24 02/15/24 02/15/24 11:24 16:34 19:39 Hold Purple Top Anion Gap Estim Creat Clear Calc Estimated GFR POC Glucose 442 H* 320 H 354 H* Random Vancomycin 02/15/24 02/16/24 02/16/24 21:05 06:15 06:16 Hold Purple Top SEE NOTE Anion Gap 15 Estim Creat Clear Calc 138.1 Estimated GFR > 60 POC Glucose Random Vancomycin 12.8 L 02/16/24 07:20 Hold Purple Top Anion Gap Estim Creat Clear Calc Estimated GFR POC Glucose 292 H Random Vancomycin Microbiology Microbiology Results: Microbiology 02/14/24 14:00 Blood Culture - Preliminary Blood - Venous No growth after 24 hours. 02/14/24 13:37 Blood Culture - Preliminary Blood - Venous No growth after 24 hours. Procedures Date of Service Date of Service: 02/16/24 Progress Note: A&P Assessment and plan (1) Abscess of right foot excluding toes: Status: Acute (2) Osteomyelitis: Status: Acute Plan Progression of right heel ulcer with abscess and osteomyelitis, wounds opened further today and debrided to bleeding tissue. We will start wet-to-dry dressing with Dakin solution. IV antibiotic for osteomyelitis per hospitalist team. We will continue to monitor patient's progress. Time Spent With Patient Time: Total time managing care of this patient today ____ minutes. Quality Stroke Does the patient have a stroke diagnosis?: No VTE Prior VTE?: No VTE Risk Level:: Medical - moderate - high VTE Device Contraindication: Treatment Not Indicated VTE Drug Contraindication: N/A - Med Ordered
[2024-02-16 11:34] LABS: Glucose, Whole Blood 355 mg/dL (60-115)
[2024-02-16] MEDS: vancomycin HCL 1,000 MG in 0.9 % Sodium Chloride 250 ML 270 MG IV ×2 (11:38→22:19)
[2024-02-16 12:08] VITALS: BP 135/63; PULSE 76; RESP 20; TEMP 37; O2SAT 94
--- NOTE | 2024-02-16 12:19 | HO.WOUND ---
Wound Consult: Attempted 58yr old?Male admitted to [facility] on 02/14/24 - See progress notes and H&P for detailed history.? Wound consult placed for Chronic Right Foot Diabetic wound.? Chart review reveals patient follows with Dr. De Leon in the past and was seen by him earlier today and bedside debridement was performed in addition to yesterday. Per Dr. Mchugh note from 02/16/24: Progression of right heel ulcer with abscess and osteomyelitis, wounds opened further today and debrided to bleeding tissue.? We will start wet-to-dry dressing with Dakin solution.? IV antibiotic for osteomyelitis per hospitalist team.? We will continue to monitor patient's progress. At this time given topical orders in place I will defer to Dr. Mchugh. Will follow along with chart review and assess if topical wound care recommendations are needed from inpatient wound care nurse.
--- NOTE | 2024-02-16 13:21 | P.PNIM_ITS ---
Subjective Subjective Date of Service: 02/16/24 Interval History: Being followed for right foot abscess/osteomyelitis. Complaining of pain right foot, denies fever, no chills, no acute issues overnight. Review of Systems All other system reviewed and are negative. Physical Exam 2 Vital Signs: Vital Signs: Last Vital Signs Temp 98.6 F 02/16/24 12:08 Pulse 76 02/16/24 12:08 Resp 20 02/16/24 12:08 BP 135/63 02/16/24 12:08 Pulse Ox 94 02/16/24 12:08 O2 Del Method Room Air 02/16/24 12:08 BMI result Body Mass Index 28.5 Const: Other: General resting comfortably in no acute distress. Moist mucous membrane Neck no JVD. CVS regular rate rhythm, Respiratory lungs clear to auscultation, no respiratory distress, no wheeze, no rhonchi. Gastrointestinal abdomen soft, non tender, bowel sounds audible, no guarding , no rigidity. Extremities left BKA Right heel dressing in place Neuro non focal Psych appropriate affect Objective Data Active Medications Atorvastatin Calcium (Atorvastatin Calcium 20 Mg Tablet) 20 mg PO DAILY [facility] Last Admin: 02/16/24 07:52 Dose: 20 mg Documented By: SERG Calcium Carbonate (Calcium Carbonate 750 Mg Tab.Chew) 750 mg PO Q4H PRN PRN Reason: Heartburn Last Admin: 02/15/24 00:37 Dose: 750 mg Documented By: FABIANA Carvedilol (Carvedilol 6.25 Mg Tablet) 6.25 mg PO DAILY [facility]; Protocol Last Admin: 02/16/24 07:53 Dose: 6.25 mg Documented By: SERG Docusate Sodium (Docusate Sodium 100 Mg Capsule) 200 mg PO BEDTIME [facility] Last Admin: 02/15/24 20:51 Dose: 200 mg Documented By: FABIANA Enoxaparin Sodium (Enoxaparin Sodium 40 Mg/0.4 Ml Syringe) 40 mg SUBCUT Q24H [facility] Last Admin: 02/15/24 16:53 Dose: Not Given Documented By: SERG Non-Admin Reason: Patient Refused Glucose (Glucose Gel 15 Gm Gel..Gram.) 15 gm PO Q15M PRN; Protocol PRN Reason: per Hypoglycemia Standing Ord. Dextrose (D10) 250 mls @ 750 mls/hr IV Q15M PRN; Protocol PRN Reason: per Hypoglycemia Standing Ord. Vancomycin HCl 1,000 mg/ (Sodium Chloride) 270 mls @ 270 mls/hr IV Q12H [facility] Last Infusion: 02/16/24 13:02 Dose: Infused Documented By: SERG Cefepime HCl (Maxipime) 2 gm in 50 mls @ 100 mls/hr IV Q8H [facility] Last Infusion: 02/16/24 07:24 Dose: Infused Documented By: SERG Insulin Glargine (Insulin Glargine,Hum.Rec.Anlog 100 Unit/Ml 10 Ml Vial) 30 unit SUBCUT BEDTIME [facility] Last Admin: 02/15/24 20:51 Dose: 30 unit Documented By: FABIANA Insulin Human Lispro (Insulin Lispro 100 Unit/Ml 3 Ml Vial) 0 unit SUBCUT QIDACHS [facility]; Protocol Last Admin: 02/16/24 11:38 Dose: 14 unit Documented By: SERG Ketorolac Tromethamine (Ketorolac Tromethamine 15 Mg/Ml Vial) 15 mg IVPUSH Q6H PRN PRN Reason: Pain, Moderate(Pain Scale 4-6) Last Admin: 02/16/24 07:53 Dose: 15 mg Documented By: SERG Magnesium Hydroxide (Milk Of Magnesia 30 Ml Oral.Susp) 30 ml PO DAILY PRN PRN Reason: Constipation Magnesium Hydroxide (Milk Of Magnesia 30 Ml Oral.Susp) 30 ml PO BEDTIME PRN PRN Reason: Constipation Melatonin (Melatonin 3 Mg Tablet) 6 mg PO BEDTIME PRN PRN Reason: Insomnia Ondansetron HCl (Ondansetron Hcl 4 Mg/2 Ml Vial) 4 mg IVPUSH Q8H PRN PRN Reason: Nausea and Vomiting Oxycodone HCl (Oxycodone Hcl Immed Release 5 Mg Tablet) 5 mg PO Q6H PRN PRN Reason: Pain, Severe (Pain Scale 7-10) Last Admin: 02/16/24 04:15 Dose: 5 mg Documented By: FABIANA Pharmacy Consult (Consult Rx Vancomycin Dosing) 1 each MISCELLANE DAILY PRN PRN Reason: Consult order Polyethylene Glycol (Polyethylene Glycol 3350 17 Gm Powd.Pack) 17 gm PO DAILY [facility] Last Admin: 02/16/24 07:53 Dose: 17 gm Documented By: SERG Sodium Chloride (0.9 % Sodium Chloride Flush 3 Ml Syringe) 3 ml IVFLUSH QSHIFT [facility] Last Admin: 02/16/24 07:53 Dose: 3 ml Documented By: SERG Sodium Hypochlorite (Sodium Hypochlorite 0.125% 473 Ml Solution) 1 appl TOPICAL BID [facility] Labs 02/15/24 06:10 02/16/24 06:16 Labs: Laboratory Results - last 24 hr 02/15/24 02/15/24 02/15/24 16:34 19:39 21:05 Hold Purple Top Anion Gap Estim Creat Clear Calc Estimated GFR POC Glucose 320 H 354 H* Random Vancomycin 12.8 L 02/16/24 02/16/24 02/16/24 06:15 06:16 07:20 Hold Purple Top SEE NOTE Anion Gap 15 Estim Creat Clear Calc 138.1 Estimated GFR > 60 POC Glucose 292 H Random Vancomycin 02/16/24 11:23 Hold Purple Top Anion Gap Estim Creat Clear Calc Estimated GFR POC Glucose 355 H* Random Vancomycin Microbiology Microbiology Results: Microbiology 02/14/24 14:00 Blood Culture - Preliminary Blood - Venous No growth after 24 hours. 02/14/24 13:37 Blood Culture - Preliminary Blood - Venous No growth after 24 hours. Assessment and Plan (1) Osteomyelitis: Status: Acute (2) Abscess of right foot excluding toes: Status: Acute (3) Constipation: Status: Acute Plan 58-year-old male with pertinent history of insulin-dependent diabetes mellitus with neuropathy, hypertension, mixed hyperlipidemia, peripheral vascular disease status post left BKA and right toe amputations presents to the emergency department for evaluation of foot pain. # Constipation due to narcotics had 1 bowel movement , continued to feel constipated will give additional lactulose, continue stool softeners/MiraLax. #. Right foot diabetic infected ulcer with purulent cellulitis/abscess/osteomyelitis: Continue IV cefepime and vancomycin D3. No sepsis, Seen by General surgery underwent repeat debridement today, noted to have gangrenous changes in the medial aspect, abscess cavity opened that extended down to calcaneus, continue daily dressing MRI foot showed osteomyelitis of calcaneus/abscess Recently discharged from [facility] [place] after requiring treatment for right foot wound, MRI at that time showed no acute osteomyelitis patient was discharged home on antibiotics and VNA services Being followed by ID she recommend daptomycin 6 weeks with weekly CK and creatinine # acute mild hyponatremia sodium 129 to 126 >127 likely due to hypovolemia/hydrochlorothiazide/normal urine osmolality and urinary sodium <20 Status post IV fluid x1 L, hold hydrochlorothiazide and add sodium chloride tablets follow BMP #. Insulin-dependent diabetes mellitus with hyperglycemia and neuropathy: Diabetic diet/adjust insulin sliding scale, continue Lantus 36 units #. Hypertension: Stable blood sugars continue to hold lisinopril, Norvasc and hydrochlorothiazide, Continue Coreg and follow BP #. Mixed hyperlipidemia: Continue Lipitor 20 mg. DVT prophylaxis: Lovenox Full code Patient will require continued inpatient stay for IV antibiotics (as above), expert consultation, which is not possible in a lesser acute setting. Quality Stroke Does the patient have a stroke diagnosis?: No VTE Prior VTE?: No VTE Risk Level:: Medical - moderate - high VTE Device Contraindication: Treatment Not Indicated VTE Drug Contraindication: N/A - Med Ordered
[2024-02-16] MEDS: Sodium Chloride Tab 1 GM TABLET PO ×2 (14:20→21:19)
[2024-02-16] MEDS: Lactulose 20 GM/30 ML SOLUTION PO (14:21)
[2024-02-16 16:00] VITALS: BP 145/69; PULSE 78; RESP 18; TEMP 36.8; O2SAT 94
[2024-02-16 16:43] LABS: Glucose, Whole Blood 314 mg/dL (60-115)
[2024-02-16 19:29] VITALS: BP 143/74; PULSE 74; RESP 16; TEMP 37.1; O2SAT 93
[2024-02-16 20:42] LABS: Glucose, Whole Blood 323 mg/dL (60-115)
[2024-02-16] MEDS: Insulin Glargine,Hum.rec.anlog 100 UNIT/ML 10 ML VIAL 36 UNIT SUBCUT (21:18)
[2024-02-16] MEDS: Docusate Sodium 100 MG CAPSULE 200 MG PO (21:19)
[2024-02-16 21:23] LABS: Vancomycin Random 12.8 mcg/mL (15-20)
[2024-02-16] MEDS: Melatonin 3 MG TABLET 6 MG PO (21:25)
[2024-02-17 03:06] VITALS: BP 143/69; PULSE 74; RESP 16; TEMP 37.1; O2SAT 95
[2024-02-17] MEDS: cefEPime HCl/D5W 2 GM/50 ML PIGGYBACK IV (06:04)
[2024-02-17] MEDS: oxyCODONE HCl Immed Release 5 MG TABLET PO (06:05)
[2024-02-17 06:42] LABS: Anion Gap 13 (12-20); Blood Urea Nitrogen 10 mg/dL (9-16); Calcium 8.4 mg/dL (8.4-10.2); Carbon Dioxide 22 mmol/L (22-29); Chloride 97 mmol/L (96-108); Estimated Glomerular Filt Rate > 60; Glucose Random 246 mg/dL (60-115); Potassium 3.7 mmol/L (3.3-5.1); Sodium 128 mmol/L (135-145)
[2024-02-17 07:30] VITALS: BP 138/67; PULSE 72; RESP 18; TEMP 36.6; O2SAT 97
[2024-02-17] MEDS: Insulin Lispro 100 UNIT/ML 3 ML VIAL SUBCUT ×4 (07:39→21:09)
[2024-02-17] MEDS: 0.9 % Sodium Chloride Flush 3 ML SYRINGE IVFLUSH ×2 (07:40→16:37)
[2024-02-17 07:44] LABS: Glucose, Whole Blood 256 mg/dL (60-115)
[2024-02-17 09:04] VITALS: BP 138/67; PULSE 72
[2024-02-17] MEDS: Atorvastatin Calcium 20 MG TABLET PO (09:04)
[2024-02-17] MEDS: carvediloL 6.25 MG TABLET PO (09:04)
[2024-02-17] MEDS: Sodium Chloride Tab 1 GM TABLET PO ×2 (09:04→20:02)
[2024-02-17] MEDS: polyethylene glycoL 3350 17 GM POWD.PACK PO (09:05)
--- NOTE | 2024-02-17 10:25 | P.CDIM_ITS ---
PROVIDER RESPONSE TEXT: To clarify, the appropriate diagnosis supported by the clinical indicators: Acute osteomyelitis of right heel QUERY TEXT: PHYSICIAN'S DOCUMENTATION REQUEST Date of Query: 02/17/2024 09:22 AM EST Patient Name: Ranulfo De La Vega Admit Date: 02/14/2024 Dear Vania Smalls MD, A review of the medical record indicates additional documentation may be needed. Please review below and update the documentation accordingly: Clinical Indicators: Progress note 02/15 - Right foot diabetic infected ulcer with purulent cellulitis/abscess/osteomyelit is. Continue IV Cefepime and Vancomycin. MRI foot showed osteomyelitis of calcaneus. ID consultation note: Nonhealing ulcer can be OM. Based on the above, please clarify in the Progress Notes further specificity regarding the acuity of the Osteomyelitis within the body of your written Plan: Acute osteomyelitis of right heel Subacute osteomyelitis Chronic osteomyelitis Chronic multifocal osteomyelitis Other (explain) Clinically unable to determine (explain) Thank you, Regine Palma, CCS, CDIS Use of terms such as suspected, likely, concern for, or probable (associated with a specific diagnosi s that is being evaluated, monitored, or treated as if it exists) are acceptable and can be coded in the inpatient se tting, when documented at the time of discharge. Please use your independent medical judgment in providing your response. THIS QUERY IS PART OF THE PERMANENT MEDICAL RECORD
--- NOTE | 2024-02-17 10:29 | P.PNIM_ITS ---
Subjective Subjective Date of Service: 02/17/24 Interval History: Complaining of foot pain, denies fever, no chills, no nausea no vomiting tolerated diet, persistent constipation, no other acute events overnight. Review of Systems All other system reviewed and are negative Physical Exam 2 Vital Signs: Vital Signs: Last Vital Signs Temp 97.9 F 02/17/24 07:30 Pulse 72 02/17/24 09:04 Resp 18 02/17/24 07:30 BP 138/67 02/17/24 09:04 Pulse Ox 97 02/17/24 07:30 O2 Del Method Room Air 02/17/24 07:30 BMI result Body Mass Index 28.5 Const: Other: General resting comfortably in no acute distress. Moist mucous membrane Neck no JVD. CVS regular rate rhythm, Respiratory lungs clear to auscultation, no respiratory distress, no wheeze, no rhonchi. Gastrointestinal abdomen soft, non tender, bowel sounds audible, no guarding , no rigidity. Extremities left BKA Right heel dressing in place, serosanguineous drainage Neuro non focal Psych appropriate affect Objective Data Active Medications Atorvastatin Calcium (Atorvastatin Calcium 20 Mg Tablet) 20 mg PO DAILY [facility] Last Admin: 02/17/24 09:04 Dose: 20 mg Documented By: KIP Calcium Carbonate (Calcium Carbonate 750 Mg Tab.Chew) 750 mg PO Q4H PRN PRN Reason: Heartburn Last Admin: 02/15/24 00:37 Dose: 750 mg Documented By: FABIANA Carvedilol (Carvedilol 6.25 Mg Tablet) 6.25 mg PO DAILY [facility]; Protocol Last Admin: 02/17/24 09:04 Dose: 6.25 mg Documented By: KIP Docusate Sodium (Docusate Sodium 100 Mg Capsule) 200 mg PO BEDTIME [facility] Last Admin: 02/16/24 21:19 Dose: 200 mg Documented By: JEROMY Enoxaparin Sodium (Enoxaparin Sodium 40 Mg/0.4 Ml Syringe) 40 mg SUBCUT Q24H [facility] Last Admin: 02/16/24 16:43 Dose: Not Given Documented By: SERG Non-Admin Reason: Patient Refused Glucose (Glucose Gel 15 Gm Gel..Gram.) 15 gm PO Q15M PRN; Protocol PRN Reason: per Hypoglycemia Standing Ord. Dextrose (D10) 250 mls @ 750 mls/hr IV Q15M PRN; Protocol PRN Reason: per Hypoglycemia Standing Ord. Vancomycin HCl 1,000 mg/ (Sodium Chloride) 270 mls @ 270 mls/hr IV Q12H [facility] Last Infusion: 02/16/24 23:33 Dose: Infused Documented By: JEROMY Cefepime HCl (Maxipime) 2 gm in 50 mls @ 100 mls/hr IV Q8H [facility] Last Infusion: 02/17/24 07:33 Dose: Infused Documented By: MCKAYLA Insulin Glargine (Insulin Glargine,Hum.Rec.Anlog 100 Unit/Ml 10 Ml Vial) 36 unit SUBCUT BEDTIME [facility] Last Admin: 02/16/24 21:18 Dose: 36 unit Documented By: JEROMY Insulin Human Lispro (Insulin Lispro 100 Unit/Ml 3 Ml Vial) 0 unit SUBCUT QIDACHS [facility]; Protocol Last Admin: 02/17/24 07:39 Dose: 8 unit Documented By: MCKAYLA Magnesium Hydroxide (Milk Of Magnesia 30 Ml Oral.Susp) 30 ml PO DAILY PRN PRN Reason: Constipation Magnesium Hydroxide (Milk Of Magnesia 30 Ml Oral.Susp) 30 ml PO BEDTIME PRN PRN Reason: Constipation Melatonin (Melatonin 3 Mg Tablet) 6 mg PO BEDTIME PRN PRN Reason: Insomnia Last Admin: 02/16/24 21:25 Dose: 6 mg Documented By: JEROMY Ondansetron HCl (Ondansetron Hcl 4 Mg/2 Ml Vial) 4 mg IVPUSH Q8H PRN PRN Reason: Nausea and Vomiting Oxycodone HCl (Oxycodone Hcl Immed Release 5 Mg Tablet) 5 mg PO Q6H PRN PRN Reason: Pain, Severe (Pain Scale 7-10) Last Admin: 02/17/24 06:05 Dose: 5 mg Documented By: JEROMY Pharmacy Consult (Consult Rx Vancomycin Dosing) 1 each MISCELLANE DAILY PRN PRN Reason: Consult order Polyethylene Glycol (Polyethylene Glycol 3350 17 Gm Powd.Pack) 17 gm PO DAILY [facility] Last Admin: 02/17/24 09:05 Dose: 17 gm Documented By: KIP Sodium Chloride (0.9 % Sodium Chloride Flush 3 Ml Syringe) [address] [facility] Last Admin: 02/17/24 07:40 Dose: 3 ml Documented By: MCKAYLA Sodium Chloride (Sodium Chloride Tab 1 Gm Tablet) 1 gm PO BID [facility] Last Admin: 02/17/24 09:04 Dose: 1 gm Documented By: KIP Sodium Hypochlorite (Sodium Hypochlorite 0.125% 473 Ml Solution) 1 appl TOPICAL BID [facility] Last Admin: 02/17/24 09:08 Dose: Not Given Documented By: KIP Non-Admin Reason: waiting for pharmacy to bring up Labs 02/15/24 06:10 02/17/24 05:51 Labs: Laboratory Results - last 24 hr 02/16/24 02/16/24 02/16/24 11:23 16:37 20:37 Hold Purple Top Anion Gap Estim Creat Clear Calc Estimated GFR POC Glucose 355 H* 314 H 323 H Random Glucose Calcium Random Vancomycin 02/16/24 02/17/24 02/17/24 20:53 05:51 07:30 Hold Purple Top SEE NOTE Anion Gap 13 Estim Creat Clear Calc 146.0 Estimated GFR > 60 POC Glucose 256 H Random Glucose 246 H Calcium 8.4 Random Vancomycin 12.8 L Microbiology Microbiology Results: Microbiology 02/14/24 14:00 Blood Culture - Preliminary Blood - Venous No growth after 48 hours. 02/14/24 13:37 Blood Culture - Preliminary Blood - Venous No growth after 48 hours. Assessment and Plan (1) Osteomyelitis: Status: Acute (2) Abscess of right foot excluding toes: Status: Acute (3) Constipation: Status: Acute Plan 58-year-old male with pertinent history of insulin-dependent diabetes mellitus with neuropathy, hypertension, mixed hyperlipidemia, peripheral vascular disease status post left BKA and right toe amputations presents to the emergency department for evaluation of foot pain. # Constipation due to narcotics had 1 bowel movement , continued to feel constipated will add senna ,MiraLax and Colace. #. Right foot diabetic infected ulcer with purulent cellulitis/abscess/acute osteomyelitis: on IV cefepime and vancomycin D4. No sepsis, Seen by General surgery underwent repeat debridement 02/15, noted to have gangrenous changes in the medial aspect, abscess cavity opened that extended down to calcaneus, continue daily dressing MRI foot showed osteomyelitis of calcaneus/abscess Recently discharged from [facility] after requiring treatment for right foot wound, MRI at that time showed no acute osteomyelitis patient was discharged home on antibiotics and VNA services Being followed by ID she recommend daptomycin 6 weeks with weekly CK and creatinine Dr. Mchugh agreed with long-term antibiotic DC IV cefepime and vanco and start IV daptomycin 6 milligram/kg 02/16 follow CK and creatinine Q weekly end date 03/30 PICC line ordered Continue oxycodone 10 mg q.6 hours for pain control # acute mild hyponatremia sodium 129 to 126 >127 >128 likely due to hypovolemia/DC hydrochlorothiazide/status post IV fluids/ continue sodium chloride tablet bid normal urine osmolality and urinary sodium <20 follow BMP if >130 will dc nacl tabs #. Insulin-dependent diabetes mellitus with hyperglycemia and neuropathy: Diabetic diet/adjusted insulin sliding scale, on Lantus 36 units will increase to 40 units #. Hypertension: Stable blood sugars continue to hold lisinopril, Norvasc and hydrochlorothiazide, Continue Coreg and follow BP #. Mixed hyperlipidemia: dc Lipitor 20 mg since started on daptomycin. DVT prophylaxis: Lovenox Full code Patient will require continued inpatient stay for IV antibiotics (as above), expert consultation, Quality Stroke Does the patient have a stroke diagnosis?: No VTE Prior VTE?: No VTE Risk Level:: Medical - moderate - high VTE Device Contraindication: Treatment Not Indicated VTE Drug Contraindication: N/A - Med Ordered
[2024-02-17] MEDS: Sodium Hypochlorite 0.125% 473 ML SOLUTION 1 APPL TOPICAL (10:55)
[2024-02-17 11:07] VITALS: BP 137/65; PULSE 76; RESP 18; TEMP 36.5; O2SAT 97
[2024-02-17] MEDS: Sennosides/Docusate Sodium TABLET 1 TAB PO (11:07)
[2024-02-17] MEDS: oxyCODONE HCl Immed Release 5 MG TABLET 10 MG PO ×2 (11:09→20:02)
[2024-02-17 11:21] LABS: Glucose, Whole Blood 212 mg/dL (60-115)
[2024-02-17] MEDS: DAPTOmycin 620 MG in 0.9 % Sodium Chloride 50 ML 100 MG IV (11:42)
[2024-02-17 15:37] VITALS: BP 137/64; PULSE 78; RESP 18; TEMP 36.7; O2SAT 98
[2024-02-17 16:21] LABS: Glucose, Whole Blood 265 mg/dL (60-115)
[2024-02-17 20:00] VITALS: BP 125/60; PULSE 79; RESP 20; TEMP 38.6; O2SAT 93
[2024-02-17] MEDS: Docusate Sodium 100 MG CAPSULE 200 MG PO (20:02)
[2024-02-17] MEDS: Ibuprofen 600 MG TABLET PO (20:47)
[2024-02-17] MEDS: Albumin Human 25 % 100 ML 133.33 ML IV ×2 (20:48→21:44)
[2024-02-17 21:07] LABS: Glucose, Whole Blood 297 mg/dL (60-115)
[2024-02-17] MEDS: Insulin Glargine,Hum.rec.anlog 100 UNIT/ML 10 ML VIAL 36 UNIT SUBCUT (21:10)
[2024-02-17 21:16] LABS: Lactic Acid 0.9 mmol/L (0.5-2.0)
[2024-02-17] MEDS: Throat Lozenge, Medicated LOZENGE 1 LOZENGE MUCOUS MEM (22:03)
[2024-02-18 03:26] VITALS: BP 122/60; PULSE 61; RESP 18; TEMP 36.3; O2SAT 94
[2024-02-18 07:01] LABS: Hematocrit 33.1 % (42.0-52.0); Hemoglobin 11.3 g/dl (14.0-18.0); Mean Corpuscular HGB Conc 34.1 g/dl (31.0-36.0); Mean Corpuscular Hemoglobin 29.9 pg (27.0-33.0); Mean Corpuscular Volume 87.6 fL (80.0-98.0); Mean Platelet Volume 10.1 fL (9.4-12.4); Platelet Count 263 X10*3/uL (160-400); Red Blood Count 3.78 X10*6/uL (4.60-5.80); Red Cell Distribution Width 12.9 % (11.0-16.0); White Blood Count 7.9 X10*3/uL (4.8-10.8)
[2024-02-18 07:24] LABS: Anion Gap 15 (12-20); Blood Urea Nitrogen 9 mg/dL (9-16); Calcium 8.7 mg/dL (8.4-10.2); Carbon Dioxide 23 mmol/L (22-29); Chloride 99 mmol/L (96-108); Creatinine Clr Calc Pharmacy 152.6; Estimated Glomerular Filt Rate > 60; Glucose Random 188 mg/dL (60-115); Potassium 3.7 mmol/L (3.3-5.1); Sodium 133 mmol/L (135-145)
[2024-02-18 08:00] VITALS: BP 143/70; PULSE 65; RESP 18; TEMP 36.4; O2SAT 91
[2024-02-18] MEDS: polyethylene glycoL 3350 17 GM POWD.PACK PO (08:15)
[2024-02-18] MEDS: Insulin Lispro 100 UNIT/ML 3 ML VIAL SUBCUT ×4 (08:15→21:14)
[2024-02-18 08:16] VITALS: BP 143/70; PULSE 65
[2024-02-18 08:16] LABS: Glucose, Whole Blood 190 mg/dL (60-115)
[2024-02-18] MEDS: 0.9 % Sodium Chloride Flush 3 ML SYRINGE IVFLUSH ×3 (08:16→16:53)
[2024-02-18] MEDS: Sodium Hypochlorite 0.125% 473 ML SOLUTION 1 APPL TOPICAL (08:16)
[2024-02-18] MEDS: Sodium Chloride Tab 1 GM TABLET PO (08:16)
[2024-02-18] MEDS: carvediloL 6.25 MG TABLET PO (08:16)
[2024-02-18] MEDS: Sennosides/Docusate Sodium TABLET 1 TAB PO (08:16)
[2024-02-18] MEDS: oxyCODONE HCl Immed Release 5 MG TABLET 10 MG PO ×2 (08:18→16:53)
--- NOTE | 2024-02-18 09:06 | P.PNGS_ITS ---
Subjective Subjective Date of Service: 02/18/24 Interval history: Patient with no new complaints. Awaiting PICC line placement Physical Exam 2 Vital Signs: Vital Signs: Last Vital Signs Temp 97.6 F 02/18/24 08:00 Pulse 65 02/18/24 08:16 Resp 18 02/18/24 08:00 BP 143/70 H 02/18/24 08:16 Pulse Ox 91 L 02/18/24 08:00 O2 Del Method Room Air 02/18/24 08:00 BMI result Body Mass Index 28.5 Const: General: no acute distress Resp: Effort & Inspection: normal respiratory effort Extrem: Other: Dressings changed by RN with Dakin solution Objective Data Active Medications Benzocaine (Throat Lozenge, Medicated Lozenge) 1 lozenge MUCOUS MEM Q2H PRN PRN Reason: Sore Throat Last Admin: 02/17/24 22:03 Dose: 1 lozenge Documented By: WINSTON Calcium Carbonate (Calcium Carbonate 750 Mg Tab.Chew) 750 mg PO Q4H PRN PRN Reason: Heartburn Last Admin: 02/15/24 00:37 Dose: 750 mg Documented By: FABIANA Carvedilol (Carvedilol 6.25 Mg Tablet) 6.25 mg PO DAILY [facility]; Protocol Last Admin: 02/18/24 08:16 Dose: 6.25 mg Documented By: KIP Docusate Sodium (Docusate Sodium 100 Mg Capsule) 200 mg PO BEDTIME [facility] Last Admin: 02/17/24 20:02 Dose: 200 mg Documented By: WINSTON Enoxaparin Sodium (Enoxaparin Sodium 40 Mg/0.4 Ml Syringe) 40 mg SUBCUT Q24H [facility] Last Admin: 02/17/24 16:40 Dose: Not Given Documented By: MCKAYLA Non-Admin Reason: Patient Refused Glucose (Glucose Gel 15 Gm Gel..Gram.) 15 gm PO Q15M PRN; Protocol PRN Reason: per Hypoglycemia Standing Ord. Dextrose (D10) 250 mls @ 750 mls/hr IV Q15M PRN; Protocol PRN Reason: per Hypoglycemia Standing Ord. Daptomycin 620 mg/ Sodium (Chloride) 62.4 mls @ 100.018 mls/hr IV Q24H [facility] Last Infusion: 02/17/24 12:20 Dose: Infused Documented By: MCKAYLA Insulin Glargine (Insulin Glargine,Hum.Rec.Anlog 100 Unit/Ml 10 Ml Vial) 36 unit SUBCUT BEDTIME [facility] Last Admin: 02/17/24 21:10 Dose: 36 unit Documented By: WINSTON Insulin Human Lispro (Insulin Lispro 100 Unit/Ml 3 Ml Vial) 0 unit SUBCUT QIDACHS [facility]; Protocol Last Admin: 02/18/24 08:15 Dose: 2 unit Documented By: KIP Magnesium Hydroxide (Milk Of Magnesia 30 Ml Oral.Susp) 30 ml PO DAILY PRN PRN Reason: Constipation Magnesium Hydroxide (Milk Of Magnesia 30 Ml Oral.Susp) 30 ml PO BEDTIME PRN PRN Reason: Constipation Melatonin (Melatonin 3 Mg Tablet) 6 mg PO BEDTIME PRN PRN Reason: Insomnia Last Admin: 02/16/24 21:25 Dose: 6 mg Documented By: JEROMY Ondansetron HCl (Ondansetron Hcl 4 Mg/2 Ml Vial) 4 mg IVPUSH Q8H PRN PRN Reason: Nausea and Vomiting Oxycodone HCl (Oxycodone Hcl Immed Release 5 Mg Tablet) 10 mg PO Q6H PRN PRN Reason: Pain, Severe (Pain Scale 7-10) Last Admin: 02/18/24 08:18 Dose: 10 mg Documented By: KIP Polyethylene Glycol (Polyethylene Glycol 3350 17 Gm Powd.Pack) 17 gm PO DAILY [facility] Last Admin: 02/18/24 08:15 Dose: 17 gm Documented By: KIP Senna/Docusate Sodium (Sennosides/Docusate Sodium Tablet) 1 tab PO DAILY [facility] Last Admin: 02/18/24 08:16 Dose: 1 tab Documented By: KIP Sodium Chloride (0.9 % Sodium Chloride Flush 3 Ml Syringe) 3 ml IVFLUSH QSHIFT [facility] Last Admin: 02/18/24 08:16 Dose: 3 ml Documented By: KIP Sodium Hypochlorite (Sodium Hypochlorite 0.125% 473 Ml Solution) 1 appl TOPICAL BID [facility] Last Admin: 02/18/24 08:16 Dose: 1 appl Documented By: KIP Labs 02/18/24 06:36 02/18/24 06:36 Labs: Laboratory Results - last 24 hr 02/17/24 02/17/24 02/17/24 11:04 15:45 20:40 MCV MCH MCHC RDW Plt Count MPV Absolute Nucleated RBC Nucleated RBC % (auto) Anion Gap Estim Creat Clear Calc Estimated GFR POC Glucose 212 H 265 H Random Glucose Lactic Acid 0.9 Calcium 02/17/24 02/18/24 02/18/24 20:57 06:36 07:17 MCV 87.6 MCH 29.9 MCHC 34.1 RDW 12.9 Plt Count 263 MPV 10.1 Absolute Nucleated RBC 0.000 Nucleated RBC % (auto) 0.0 Anion Gap 15 Estim Creat Clear Calc 152.6 Estimated GFR > 60 POC Glucose 297 H 190 H Random Glucose 188 H Lactic Acid Calcium 8.7 Procedures Date of Service Date of Service: 02/18/24 Progress Note: A&P Assessment and plan (1) Osteomyelitis: Status: Acute Plan Patient with osteomyelitis involving calcaneus with overlying ulcer and abscess. Wounds are now open and draining, being dressed with Dakin solution. Agree with long-term antibiotics for osteomyelitis. We will continue to monitor. Time Spent With Patient Time: Total time managing care of this patient today ____ minutes. Quality Stroke Does the patient have a stroke diagnosis?: No VTE Prior VTE?: No VTE Risk Level:: Medical - moderate - high VTE Device Contraindication: Treatment Not Indicated VTE Drug Contraindication: N/A - Med Ordered
[2024-02-18 11:37] LABS: Glucose, Whole Blood 173 mg/dL (60-115)
--- NOTE | 2024-02-18 11:40 | MHC.CM.PN ---
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
--- NOTE | 2024-02-18 13:04 | HO.PICC ---
PICC Line Insertion NPICC Diagnosis: Right foot infection Indication: long-term antibiotics needed Pertinent Labs: reviewed Technique: Following informed consent including risks, benefits and alternatives and using sterile technique including cap and mask, sterile gown, glove and drape, the right arm was prepped and draped in the usual sterile fashion of full barrier technique with G. Following completion of [place] Protocol the skin and soft tissues were anesthetized with 1% Lidocaine plain. Using ultrasound guidance, right brachial vein access was obtained on first attempt. Over an 0.018 wire through peel-away sheath, a 4FR single lumen PASV PICC line was positioned. Catheter length is 48 CM internal length, a the 0 CM venessa-external length, for a total trimmed length of 48 CM. The procedure was performed in S272. Tip verification was performed by Joey Grant with Francia 3CG. Tip located in SVC. Ultrasound was used to document vein patency and for needle entry. A formal ultrasound picture and cardiac rhythm strip was recorded. [facility] has released the line for use and it is currently dressed with a StatLock, Tegaderm, and CHG disc. Verification has been performed for blood return and line patency. Arm Circumference: 31 CM Equipment: [email or web address] PowerPICC Solo Catheter Type: 4 FR single lumen PASV PICC Lot #: [id number]
[2024-02-18] MEDS: 0.9 % Sodium Chloride Flush 10 ML SYRINGE 5 ML IVFLUSH ×2 (13:34→13:35)
[2024-02-18] MEDS: Lactulose 20 GM/30 ML SOLUTION 30 GM PO (13:34)
[2024-02-18] MEDS: DAPTOmycin 620 MG in 0.9 % Sodium Chloride 50 ML 100 MG IV (13:34)
[2024-02-18 14:10] VITALS: BP 143/70; PULSE 65
--- NOTE | 2024-02-18 14:22 | PM.DS ---
DS: Providers Provider Date of Service: 02/18/24 Date of admission: 02/14/24 17:29 Date of discharge: 02/18/24 Primary care physician: Angie Rivas MD Consults: 02/14/24 17:35 Consult to General Surgery Routine Consulting Provider: [facility] General Surgeons Reason for consultation: rt foot wound/cellulitis/abscess Has provider been notified: No 02/14/24 21:56 Addiction Medicine Routine Consulting Provider: Addiction Covering Reason for consultation: drank shots and beer daily until 6 days ago 02/15/24 09:00 Consult to Wound Care Routine Reason for consultation: R foot wound 02/15/24 09:58 Consult to Infectious Diseases Routine Consulting Provider: [facility] Infectious Disease Center Reason for consultation: foot abscess/wound Has provider been notified: No 02/17/24 10:39 Consult to Infectious Diseases Routine Consulting Provider: Paola Mcguire Reason for consultation: osteo Has provider been notified: Yes DS: Diagnosis Discharge Diagnosis (1) Osteomyelitis: Status: Acute (2) Diabetic osteomyelitis: Status: Acute (3) Diabetic foot infection: Status: Acute (4) Foot abscess: Status: Acute (5) Hyponatremia: Status: Acute DS: Summary Hospital Course Hospital Course: From the history and physical by the admitting hospitalist, Vania Smalls MD, 02/14/24: 58-year-old gentleman with past medical history of hypertension, hyperlipidemia, hypothyroidism, type 2 diabetes mellitus, peripheral vascular disease status post left BKA and right big toe amputation, recently discharged from [facility] in 11/19/2023 after requiring treatment for right heel wound, with no evidence of osteomyelitis on MRI patient was treated with IV antibiotic and was discharged home with [facility] for wound care, patient presented to [place] today for not moving bowels or passing flatus in last six days,, he denies associated nausea, no vomiting, no abdominal pain, no fevers or chills, as per patient he has been using his oxycodone 10 mg every 6 hours, and taking his med medications Levaquin and metronidazole, on examination in ED patient was noted to have right lower extremity redness swelling and possibly infected blister, patient uncertain if he was wearing ill-fitting shoes, patient was treated in ED with IV vancomycin and cefepime x-ray of foot showed soft tissue ulceration heel pad with no evidence of osteomyelitis, CT abdomen and pelvis showed moderate to large volume of stool in the colon, no acute abnormality of the bowel, WBC 15.6, CRP 24, albumin 3.1, blood sugar 219, creatinine 1, sodium of 129 and a chloride of 93. He was admitted the hospitalist service for an infected ulcer with abscess and osteomyelitis of the right foot. He was initially placed on IV cefepime and vancomycin. Infectious Disease and General Surgery were consulted. He underwent bedside debridement on 02/16/24 and was found to have gangrenous changes in the medial aspect; the abscess cavity was opened and extended down to the calcaneous. MRI demonstrated osteomyelitis of the calcaneus. Six weeks of IV daptomycin was recommended. PICC was placed on 02/18/24. End date of antibiotic treatment will be 03/30/24. While on daptomycin, atorvastatin should be held. Weekly labs to be done include CBCd, CPK, and BMP. He will need to follow-up with [facility] General Surgery in 1 week and [facility] Infectious Disease in 2 weeks. He was discharged to [facility] for short-term rehabilitation. Hospitalization also notable for mild hyponatremia that resolved after stopping HCTZ and giving sodium chloride tablets. HCTZ was discontinued upon discharge and sodium chloride supplementation was stopped once Na was 133. Time Attestation Discharge Coordination Time (in mins): 40 Quality: Safe Use of Opioids Does Pt have an Active Cancer Diagnosis on the Problem List?: No Quality: Stroke Does the patient have a stroke diagnosis?: No Physical Exam Vital Signs: Vital Signs: Last Vital Signs Temp 97.6 F 02/18/24 08:00 Pulse 65 02/18/24 08:16 Resp 18 02/18/24 08:00 BP 143/70 H 02/18/24 08:16 Pulse Ox 91 L 02/18/24 08:00 O2 Del Method Room Air 02/18/24 08:00 BMI result Body Mass Index 28.5 Gen: in no acute distress HEENT: sclera anicteric, moist mucus membranes Neck: supple Lungs: clear to auscultation bilaterally Heart: regular rate and rhythm, no murmurs Abd: soft, non-tender, non-distended Ext: L BKA, RUE PICC Skin: R medial heel with large open abscess cavity packed with dressing Neuro: alert and oriented x3, no focal findings Psych: appropriate affect DS: Data Data Completed and Pending Completed studies during hospitalization [Text1]: Laboratory Results WBC 7.9 X10*3/uL (4.8-10.8) 02/18/24 06:36 RBC 3.78 X10*6/uL (4.60-5.80) L 02/18/24 06:36 Hgb 11.3 g/dl (14.0-18.0) L 02/18/24 06:36 Hct 33.1 % (42.0-52.0) L 02/18/24 06:36 MCV 87.6 fL (80.0-98.0) 02/18/24 06:36 MCH 29.9 pg (27.0-33.0) 02/18/24 06:36 MCHC 34.1 g/dl (31.0-36.0) 02/18/24 06:36 RDW 12.9 % (11.0-16.0) 02/18/24 06:36 Plt Count 263 X10*3/uL (160-400) 02/18/24 06:36 MPV 10.1 fL (9.4-12.4) 02/18/24 06:36 Immature Gran % (Auto) 0.6 % (0.0-0.4) H 02/14/24 13:37 Neut % (Auto) 84.4 % (45-73) H 02/14/24 13:37 Lymph % (Auto) 6.1 % (20-40) L 02/14/24 13:37 [place] % (Auto) 8.3 % (2-11) 02/14/24 13:37 Eos % (Auto) 0.3 % (0-4) 02/14/24 13:37 Baso % (Auto) 0.3 % (0-2) 02/14/24 13:37 Lymph # (Auto) 1.0 X10*3/uL (1.2-4.9) L 02/14/24 13:37 [place] # (Auto) 1.3 X10*3/uL (0.1-1.2) H 02/14/24 13:37 Eos # (Auto) 0.0 X10*3/uL (0.0-0.4) 02/14/24 13:37 Baso # (Auto) 0.0 X10*3/uL (0.0-0.2) 02/14/24 13:37 Abs Immat Gran (auto) 0.09 X10*3/uL (0.00-0.03) H 02/14/24 13:37 Absolute Neuts (auto) 13.2 x10*3/uL (2.0-8.3) H 02/14/24 13:37 Absolute Nucleated RBC 0.000 X10*3/uL (0.0-0.012) 02/18/24 06:36 Nucleated RBC % (auto) 0.0 /100WBC (0.0-0.2) 02/18/24 06:36 ESR 81 MM/HR (0-15) H 02/14/24 13:37 Hold Purple Top SEE NOTE 02/17/24 05:51 Sodium 133 mmol/L (135-145) L 02/18/24 06:36 Potassium 3.7 mmol/L (3.3-5.1) 02/18/24 06:36 Chloride 99 mmol/L (96-108) 02/18/24 06:36 Carbon Dioxide 23 mmol/L (22-29) 02/18/24 06:36 Anion Gap 15 (12-20) 02/18/24 06:36 BUN 9 mg/dL (9-16) 02/18/24 06:36 Creatinine 0.67 mg/dL (0.5-1.4) 02/18/24 06:36 Estim Creat Clear Calc 152.6 02/18/24 06:36 Estimated GFR > 60 02/18/24 06:36 POC Glucose 173 mg/dL (60-115) H 02/18/24 11:33 Random Glucose 188 mg/dL (60-115) H 02/18/24 06:36 Lactic Acid 0.9 mmol/L (0.5-2.0) 02/17/24 20:40 Calcium 8.7 mg/dL (8.4-10.2) 02/18/24 06:36 Total Bilirubin 0.8 mg/dL (0.0-1.0) 02/14/24 13:37 Direct Bilirubin 0.3 mg/dL (0.0-0.5) 02/14/24 13:37 AST 23 U/L (5-37) 02/14/24 13:37 ALT 18 U/L (0-40) 02/14/24 13:37 Alkaline Phosphatase 86 U/L (39-117) 02/14/24 13:37 Total Creatine Kinase 23 U/L (38-174) L 02/18/24 06:36 C-Reactive Protein 24.00 mg/dL (< or = 0.50) H 02/14/24 13:37 Total Protein 6.7 g/dL (6.5-8.0) 02/14/24 13:37 Albumin 3.1 g/dL (3.5-5.0) L 02/14/24 13:37 Lipase 6 U/L (8-78) L 02/14/24 13:37 Urine Osmolality 610 mosm/kg (373-1093) 02/15/24 04:00 Ur Random Sodium < 20.0 mmol/L 02/15/24 04:00 Random Vancomycin 12.8 mcg/mL (15-20) L 02/16/24 20:53 Impressions Foot X-Ray 02/14/24 13:44 IMPRESSION: 1. Soft tissue ulcerations heel pad, with no radiographic evidence of osteomyelitis. 2. Amputation of the hallux at the proximal aspect proximal phalanx level. Electronically signed by: Ko Butler MD 02/14/2024 03:34 PM EST RP Abdomen/Pelvis CT 02/14/24 15:05 IMPRESSION: No acute abnormality CT scan abdomen pelvis. Moderate to large volume of stool in the colon. No acute abnormality of the bowel. Fleischner guidelines were followed. Electronically signed by: Chris Galo MD 02/14/2024 04:42 PM EST RP Foot MRI 02/15/24 17:19 IMPRESSION: 1. Soft tissue ulcerations of the medial/plantar heel pad and medial aspect of the calcaneus as described with subcutaneous air/phlegmonous change/abscess extending along the posterior and medial aspect of the calcaneus. There is also a longitudinal abscess extending distally along the quadratus plantae muscle. 2. Underlying osteomyelitis of the calcaneus as described. Electronically signed by: John Page MD 02/15/2024 09:14 PM EST RP Discharge Plan Discharge Anticipated Discharge Date/Time: 02/18/24 14:12 Patient Disposition: Xfer SNF Discharge Diagnosis: osteomyelitis/abscess hyponatremia Referrals: [facility] [Outside] - 1 Day (short term rehab) Angie Rivas MD [Primary Care Provider] - 1 Week Discharge Medications: New polyethylene glycol 3350 17 gram Powder In Packet 17 g PO DAILY Qty: 30 0RF sennosides-docusate sodium [Senna Plus] 8.6-50 mg Tablet 1 tab PO DAILY Qty: 30 0RF sodium chloride 0.9 % (flush) [BD PosiFlush Normal Saline 0.9] Syringe 3 ml IVFLUSH QSHIFT Qty: 120 0RF Dakin's Solution 0.125 % Solution 1 appl topical BID Qty: 240 0RF daptomycin 350 mg Recon Soln 620 mg IV Q24H Qty: 40 0RF Continued (DME) Left lower limb prosthetic to fit See Rx Instructions .Route .MEDSUPPLY Qty: 1 0RF Rx Instructions: As directed (DME) Allevyn 4 X 4 bandage See Rx Instructions .Route Qty: 30 1RF Rx Instructions: As directed (DME) Diabetic shoes to fit See Rx Instructions .Route .MEDSUPPLY Qty: 1 0RF Rx Instructions: As directed insulin glargine [Basaglar KwikPen U-100 Insulin] 100 unit/mL (3 mL) insulin pen 36 unit subcut BEDTIME oxycodone 10 mg tablet 10 mg PO Q6H PRN (Reason: pain) Qty: 20 0RF Rx Instructions: Partial Fill upon patient request. insulin lispro [Humalog KwikPen Insulin] 100 unit/mL insulin pen See Protocol subcut TIDAC Protocol: Insulin Correction Scale Less than or equal to 110 ---- Give (units): 0 111 to 150 Give (units): 0 151 to 200 Give (units): 2 201 to 250 Give (units): 4 251 to 300 Give (units): 6 301 to 350 Give (units): 8 Greater than 350 Give (units): 10 Call MD if Blood Glucose > : 350 (DME) FreeStyle Lite Strips Strip See Rx Instructions .ROUTE .MEDSUPPLY Qty: 10 Rx Instructions: As directed (DME) lancets [FreeStyle Lancets] 28 gauge misc See Rx Instructions .ROUTE .MEDSUPPLY Qty: 100 Rx Instructions: As directed (DME) pen needle, diabetic [BD Ultra-Fine Sarah Pen Needle] 32 gauge x 5/32 needle See Rx Instructions .ROUTE .MEDSUPPLY Qty: 50 Rx Instructions: As directed lisinopril 40 mg tablet 40 mg PO DAILY (DME) lancets [TRUEplus Lancets] 33 gauge misc See Rx Instructions Not Applicable TID Qty: 100 Rx Instructions: As directed amlodipine 10 mg tablet 10 mg PO DAILY carvedilol 6.25 mg tablet 6.25 mg PO DAILY Held atorvastatin 20 mg tablet 20 mg PO DAILY Hold Instructions: Resume on 03/31/24. Discontinued levofloxacin 500 mg tablet 500 mg PO DAILY 20 Days Qty: 20 0RF hydrochlorothiazide 12.5 mg capsule 12.5 mg PO DAILY Discharge Orders: Discharge Order (Routine); Ordered 02/18/24 Ordered By: Sonia Rivera Diet: Diabetic diet Activity on Discharge: As tolerated Stand Alone Forms: Patient Portal Discharge page Print Language: Congolese Care Plan Goals: cure of infection Health Concerns: osteomyelitis/abscess hyponatremia Plan of Treatment: transfer to short-term rehab daptomycin 620 mg IV daily, end date 03/30/24 remove PICC after antibiotic completed weekly labs while on daptomycin: CBCd, BMP, CPK follow up with [facility] General Surgery in 1 week follow up with [facility] Infectious Disease in 2 weeks WOUND CARE instructions: Please change right heel dressing with wet-to-dry Dakin solution sponge to open wounds followed by fluff gauze, ABD and Kerlix b.i.d. take stool softeners as prescribed; high-fiber diet STOP hydrochlorothiazide due to hyponatremia [low sodium] Please follow up with your primary care doctor within 1 week of discharge from rehab. Return to the hospital if you experience recurrent or worsening symptoms. Assessment: See Discharge Summary.
--- NOTE | 2024-02-18 14:53 | MHC.CM.PN ---
IMM 02/18/24, PT MEDICALLY CLEARED FOR DC TO STR AT [facility] FOR PT/6 WKS IV DAPTOMYCIN, PT'S Nilo RAO NOTIFIED AT # ON FILE, INES FOR TRANSPORT AT 6PM
[2024-02-18 16:33] LABS: Glucose, Whole Blood 245 mg/dL (60-115)
[2024-02-18 20:00] VITALS: BP 129/61; PULSE 73; RESP 20; TEMP 37.2; O2SAT 95
[2024-02-18 20:51] LABS: Glucose, Whole Blood 230 mg/dL (60-115)
[2024-02-18] MEDS: Insulin Glargine,Hum.rec.anlog 100 UNIT/ML 10 ML VIAL 36 UNIT SUBCUT (21:15)
[2024-02-18] MEDS: Docusate Sodium 100 MG CAPSULE 200 MG PO (21:16)
== END 2024-02-18 21:28 | disposition skilled nursing facility (03) | DRG 264 ==
LOC: HO.ED 17:23 → HO.EDOVER 17:34 → HO.IMC 19:33
PROVIDERS: Student in an Organized Health Care Education/Training Program; Admitting Provider Hospitalist; Emergency Provider Emergency Medicine; PCP Internal Medicine; Visit Provider Family Medicine
DX: E11.52 Type 2 diabetes mellitus with diabetic peripheral angiopathy with gangrene (principal); L02.611 Cutaneous abscess of right foot; E87.1 Hypo-osmolality and hyponatremia; M86.171 Other acute osteomyelitis, right ankle and foot; L97.412 Non-pressure chronic ulcer of right heel and midfoot with fat layer exposed; L03.115 Cellulitis of right lower limb; E11.65 Type 2 diabetes mellitus with hyperglycemia; E78.2 Mixed hyperlipidemia; E03.9 Hypothyroidism, unspecified; E11.69 Type 2 diabetes mellitus with other specified complication; K59.03 Drug induced constipation; T40.605A Adverse effect of unspecified narcotics, initial encounter; E11.42 Type 2 diabetes mellitus with diabetic polyneuropathy; E11.621 Type 2 diabetes mellitus with foot ulcer; E86.1 Hypovolemia; T50.2X5A Adverse effect of carbonic-anhydrase inhibitors, benzothiadiazides and other diuretics, initial encounter; E11.628 Type 2 diabetes mellitus with other skin complications; F17.210 Nicotine dependence, cigarettes, uncomplicated; Z71.6 Tobacco abuse counseling; Z89.512 Acquired absence of left leg below knee; Z79.4 Long term (current) use of insulin; Z79.899 Other long term (current) drug therapy
CPT/HCPCS: 36415; 36573; 73630; 73720; 74177; 80048; 80051; 80076; 80202; 82550; 82565; 82947; 83605; 83690; 83935; 84300; 85025; 85027; 85652; 86140; 87040; 97162; 99285; A9585; C1751; J0692; J0878; J1885; J3370; P9047

== ENCOUNTER → 2024-02-14 13:18 | Outpatient (BNV) | payer MEDICARE, MEDICAID, SELFPAY | PROVIDERS: Emergency Provider Emergency Medicine; PCP Internal Medicine; Visit Provider Radiology Diagnostic Radiology | DX: M79.671 Pain in right foot (principal) | CPT/HCPCS: 73630 ==

== ENCOUNTER → 2024-02-14 17:29 | Outpatient (BNV) | payer MEDICARE, MEDICAID, SELFPAY | PROVIDERS: Admitting Provider Hospitalist; Emergency Provider Emergency Medicine; PCP Internal Medicine; Visit Provider Surgery | DX: M86.9 Osteomyelitis, unspecified (principal) | CPT/HCPCS: 10060; 99024; 99222 ==

== ENCOUNTER → 2024-02-14 17:29 | Outpatient (BNV) | payer MEDICARE, MEDICAID, SELFPAY | PROVIDERS: Admitting Provider Hospitalist; Emergency Provider Emergency Medicine; PCP Internal Medicine; Visit Provider Hospitalist | DX: M86.9 Osteomyelitis, unspecified (principal); E11.69 Type 2 diabetes mellitus with other specified complication; E11.628 Type 2 diabetes mellitus with other skin complications; L08.9 Local infection of the skin and subcutaneous tissue, unspecified; L02.619 Cutaneous abscess of unspecified foot; E87.1 Hypo-osmolality and hyponatremia | CPT/HCPCS: 99222; 99232; 99239 ==

== ENCOUNTER → 2024-02-14 17:29 | Outpatient (BNV) | payer MEDICARE, MEDICAID, SELFPAY | PROVIDERS: Admitting Provider Hospitalist; Emergency Provider Emergency Medicine; PCP Internal Medicine; Visit Provider Internal Medicine | DX: L02.611 Cutaneous abscess of right foot (principal); L03.90 Cellulitis, unspecified; L97.412 Non-pressure chronic ulcer of right heel and midfoot with fat layer exposed | CPT/HCPCS: 99222 ==

== ENCOUNTER 2024-03-02 11:23 | Outpatient (AMB) | payer MEDICARE, MEDICAID, SELFPAY ==
--- NOTE | 2024-03-02 11:31 | MHC.OFFVIS ---
Intake Visit Reasons: Abscess of right foot excluding toes Intake Note: Patient is seen in office for Abscess of right foot excluding toes. Pt c/o: patient not feeling well today. Living at [facility]. Rt heel: cleanse wound with Dakins solution. Wet to Dry dressing. Banquet Captain Required: No Accompanied by: Self / Same As Patient Allergies acetaminophen Allergy (Mild, Verified 03/02/24 11:34) Rash HPI Comments Details: Adonay returns for wound check. He is currently in [facility] and not liking it. He is begging to go home but understands he needs to continued IV antibiotics. He denies any fever, chills, or extremity pain. [facility] Medical History Diabetes mellitus Peripheral neuropathy Hypertension Osteomyelitis of left foot Hypercholesterolemia Surgical History Status post cryoablation History of amputation of both great toes Family History Father History of hypertension Mother History of diabetes mellitus Social History Household Members: Family Household Members Other:: Uncle Housing: House Do you presently have visiting nurse or other home services: No Alcohol intake: former Patient Tobacco Use Status: Current everyday Tobacco user Cigarette Packs Per Day: 0.5 Cigarettes Per Day: 10.0 Years Smoked: 35 Advance Directives Date on File: 02/14/24 service: No Review of Systems Const All systems reviewed & are unremarkable except as noted in HPI and below Physical Exam Const General: tired appearing; No well groomed Nutritional Appearance: thin Orientation/consciousness: patient oriented x3 Resp Effort & Inspection: normal respiratory effort Neuro General: patient oriented x3 Extrem Other: Right foot heel wound with no evidence of healing. Extensive desquamated skin was excised for an area of 5 x 5 cm. Necrotic subcutaneous tissue was excised down to bleeding viable tissue. The plantar ulcer and heel ulcer are now communicating in widely opened. Plantar ulcer was debrided down to bleeding tissue as well. Both wounds were packed with fluff gauze followed by ABD pad and Kerlix. Assessment & Plan Assessment & Plan (1) Diabetic foot infection: Code(s): E11.628 - Type 2 diabetes mellitus with other skin complications; L08.9 - Local infection of the skin and subcutaneous tissue, unspecified Category: Medical (2) Osteomyelitis: Code(s): M86.9 - Osteomyelitis, unspecified Category: Medical Qualifiers: Osteomyelitis type: subacute Osteomyelitis location: foot Laterality: right Qualified Code(s): M86.271 - Subacute osteomyelitis, right ankle and foot Plan 58-year-old male patient with diabetes with a previous history of a left below-knee amputation now with a nonhealing ulcer involving the right heel. He is currently being treated for osteomyelitis with IV antibiotics under the direction of Infectious diseases. There is extensive necrotic tissue at the wound which was debrided today. Recommend continuing the twice daily dressing changes and continuing IV antibiotics. He will return in approximately 2 weeks for follow-up examination. Coding Level of Care Code Est Pt Level 3 (18964) Diagnoses Diabetic foot infection E11.628; L08.9 Subacute osteomyelitis of right foot M86.271 Osteomyelitis type: subacute Osteomyelitis location: foot Laterality: right
== END 2024-03-02 11:51 | disposition home or self-care (01) ==
PROVIDERS: PCP Internal Medicine; Visit Provider Surgery
DX: E11.628 Type 2 diabetes mellitus with other skin complications (principal); L08.9 Local infection of the skin and subcutaneous tissue, unspecified; M86.271 Subacute osteomyelitis, right ankle and foot
CPT/HCPCS: 99213

== ENCOUNTER → 2024-03-02 11:23 | Outpatient (BNVA) | payer MEDICARE, MEDICAID, SELFPAY | PROVIDERS: PCP Internal Medicine; Visit Provider Surgery | DX: E11.69 Type 2 diabetes mellitus with other specified complication (principal); M86.271 Subacute osteomyelitis, right ankle and foot | CPT/HCPCS: 99212 ==

== ENCOUNTER 2025-02-06 08:50 | Outpatient (AMB) | payer MEDICARE, MEDICAID, SELFPAY ==
--- NOTE | 2025-02-06 08:53 | MHC.OFFVIS ---
Vital Signs 02/06/25 08:59 Height 6 ft 3 in Weight 230 lb BMI 28.7 BP 172/78 H Blood Pressure Location Rt brachial Position Sitting Pulse 63 Pulse Source Pulse Oximeter Pulse Oximetry (%) 97 Oxygen Delivery Method Room Air Intake Visit Reasons: AMPUTATION STUMP PAIN Intake Note: Pain today 10/10 Allergies acetaminophen Allergy (Mild, Verified 02/06/25 08:57) Rash HPI Comments Details: The patient is a 59 year old male presenting for an initial evaluation of chronic pain secondary to bilateral below-knee amputations (BKA). The amputations were due to diabetic foot ulcers and osteomyelitis. The left BKA was performed five years ago, and the right BKA was performed in March of this year. He experiences daily phantom pain in both lower extremities since the surgeries, with the right side being more painful. He describes the pain as constant, pulsing, throbbing, pounding, jumping, flashing, shooting, sharp, dull, sore, hurting, aching, and heavy, with associated sensations of tightness and squeezing. Pain is rated 9/10 in the morning and afternoon, and 7/10 at night, and is exacerbated by weather changes, movements, and exercises. Current pain management includes gabapentin, which he reports does not help, and oxycodone 5 mg #10 tablets per month, which he finds insufficient. He recently completed physical and occupational therapy with no relief. In the past, he received injections for the left leg, including a cryoablation procedure that provided pain relief for six months. His medical history is significant for diabetes mellitus, for which he takes insulin. He reports his blood sugars are well-controlled, but his last A1c a few months ago was 8.3%. He smokes half a pack of cigarettes daily and drinks beer twice a week. Pain Description - Location: Bilateral lower extremities, phantom pain. - Onset: Daily since his amputations. - Character: Constant, pulsing, throbbing, pounding, jumping, flashing, shooting, sharp, dull, sore, hurting, aching, heavy, tightness, and squeezing sensations. - Severity: 9/10 in the morning and afternoon, decreasing to 7/10 at night. - Exacerbating Factors: Weather changes, movements, and exercises. - Associated Symptoms: Causes fatigue. Pain Management - Analgesia: The patient is taking gabapentin, which he reports does not help, and oxycodone 5 mg once daily, which he states is not enough to cover his pain. 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 - Affect: The pain makes him tired. - Aberrant Drug-Related Behaviors: No aberrant behaviors were noted or discussed; the patient receives a limited supply of 10 oxycodone pills from his PCP. [facility] Medical History (Updated 02/06/25 @ 09:44 by BOSSMAN Ward) Smoker Diabetic neuropathy Diabetes mellitus Peripheral neuropathy Hypertension Osteomyelitis of left foot Hypercholesterolemia Surgical History Status post cryoablation History of amputation of both great toes Family History Father History of hypertension Mother History of diabetes mellitus Social History (Updated 02/06/25 @ 09:02 by Merari Dudley) Household Members: Family Household Members Other:: Uncle Housing: House Do you presently have visiting nurse or other home services: No Alcohol intake: current Alcohol intake frequency: a few times a week Alcohol type: beer Patient Tobacco Use Status: Current everyday Tobacco user Cigarette Packs Per Day: 0.5 Cigarettes Per Day: 10.0 Years Smoked: 35 Advance Directives Date on File: 02/14/24 service: No Review of Systems Narrative - Neurological: Reports bilateral lower extremity phantom pain characterized as pulsing, throbbing, pounding, jumping, flashing, shooting, sharp, dull, sore, aching, and heavy, with sensations of tightness and squeezing. - Musculoskeletal: Reports pain with movements and exercises. - Constitutional: Reports fatigue and frustration related to pain as it affects his daily functioning, mobility, work, mood, and sleep. - Psychiatric: Denies current need for a mental health therapist, but acknowledges that he has participated in therapy in the past and found it helpful. Const All systems reviewed & are unremarkable except as noted in HPI and below Physical Exam Vital Signs: Last Vital Signs Pulse 63 02/06/25 08:59 BP 172/78 H 02/06/25 08:59 Pulse Ox 97 02/06/25 08:59 Oxygen Delivery Method Room Air 12/09/25 08:59 BMI result Body Mass Index 28.7 General: Appears afebrile. Alert and oriented. Mood and affect appropriate. Follows and participates in conversation appropriately. Respiratory effort is unlabored. No cough. Able to transition from sit to stand with assistance. Arrived in wheelchair. Left BKA prosthesis. Right stump sleeve. Extrem Other: Well healed incision to right stump with global right stump pain and tenderness without erythema or swelling and bilateral phantom pain reported. General: Yes capillary refill normal, Yes amputation noted (Bilateral BKA) and No edema Results Reviewed Results Reviewed: - Labs: The patient reports his most recent A1c, checked a couple of months ago, was 8.3%. - He reports his morning blood glucose is 125. Assessment & Plan Assessment & Plan (1) Phantom pain after amputation of lower extremity: Code(s): G54.6 - Phantom limb syndrome with pain Category: Medical (2) Peripheral neuropathy: Code(s): G62.9 - Polyneuropathy, unspecified Category: Medical (3) Chronic pain syndrome: Code(s): G89.4 - Chronic pain syndrome Category: Medical (4) Stump pain: Code(s): T87.89 - Other complications of amputation stump; M79.609 - Pain in unspecified limb Category: Medical Plan The assessment is chronic phantom limb pain in the setting of bilateral BKA, which is inadequately controlled with his current regimen of gabapentin and oxycodone. Interventional options including spinal cord stimulation (SCS) and peripheral nerve stimulation (PNS) were discussed. However, the patient is not a candidate for these procedures at this time due to his elevated A1c of 8.3 per patient's report, as a level of 7.5 or below is required to minimize infection risk. He will be instructed to work on glycemic control with his primary care provider (PCP). A request will be sent to his PCP for his most recent laboratory results to confirm his current A1c level. A diagnostic, non-steroidal nerve block was offered as a potential option that can be performed regardless of A1c level to assess for potential benefit from future interventions. I have informed patient that I do not offer chronic opioid therapy; a recommendation will be sent to his PCP to consider increasing the frequency of his oxycodone to provide better analgesia and improved daily functioning. The patient was provided with informational brochures on SCS and PNS to review with his , who is a registered nurse. The plan is pending the patient's decision on how to proceed and improvement in his glycemic control. All questions and concerns have been answered and patient agreed with the treatment plan. Follow up as needed. Patient was informed and verbally consented to the use of an ambient scribe for clinic note documentation during this visit. 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
[2025-02-06 08:59] VITALS: BP 172/78; PULSE 63; O2SAT 97; BMI 28.7
== END 2025-02-06 09:31 | disposition home or self-care (01) ==
PROVIDERS: PCP Internal Medicine; Visit Provider Nurse Practitioner Family
DX: G54.6 Phantom limb syndrome with pain (principal); G62.9 Polyneuropathy, unspecified; G89.4 Chronic pain syndrome; T87.89 Other complications of amputation stump; M79.609 Pain in unspecified limb
CPT/HCPCS: 99204

== ENCOUNTER → 2025-02-06 08:50 | Outpatient (BNVA) | payer MEDICARE, MEDICAID, SELFPAY | PROVIDERS: PCP Internal Medicine; Visit Provider Nurse Practitioner Family | DX: G54.6 Phantom limb syndrome with pain (principal); G89.4 Chronic pain syndrome; G62.9 Polyneuropathy, unspecified; T87.89 Other complications of amputation stump; Z89.512 Acquired absence of left leg below knee; Z89.511 Acquired absence of right leg below knee; Z79.891 Long term (current) use of opiate analgesic | CPT/HCPCS: 99202 ==